=== PATIENT | female | born 1950 | race Caucasian/White ===

== ENCOUNTER → 2020-01-04 08:24 | Outpatient (BNVA) | payer MEDICARE, SELFPAY | PROVIDERS: Family Provider Nurse Practitioner; PCP Nurse Practitioner; Visit Provider Nurse Practitioner Family | DX: E11.9 Type 2 diabetes mellitus without complications (principal); E78.2 Mixed hyperlipidemia; E55.9 Vitamin D deficiency, unspecified; R01.1 Cardiac murmur, unspecified; I10 Essential (primary) hypertension; Z79.4 Long term (current) use of insulin; R04.0 Epistaxis | CPT/HCPCS: 36415; 80053; 80061; 81001; 83036; 84443; 85025 ==

== ENCOUNTER → 2020-02-01 16:34 | Outpatient (BNVA) | payer MEDICARE, SELFPAY | PROVIDERS: Family Provider Nurse Practitioner; PCP Nurse Practitioner; Visit Provider Nurse Practitioner Family | DX: S59.911A Unspecified injury of right forearm, initial encounter (principal); W19.XXXA Unspecified fall, initial encounter; Y92.009 Unspecified place in unspecified non-institutional (private) residence as the place of occurrence of the external cause | CPT/HCPCS: 71046; 73090 ==

== ENCOUNTER 2020-02-23 09:55 | Outpatient (CLI) | payer MEDICARE, SELFPAY ==
--- NOTE | 2020-02-23 10:15 | USCV_ITS ---
Cherelle Donna Age: 69 Gender: F : 1950 Exam Date: 02/23/2020 10:24 Ordering Phys: Lori Moss MD ([email or web address]) Technologist: Freida Edgar Exam Location: [facility] [place] Indication: BP: / HR: 72 Rhythm: Sinus Technical Quality: Adequate MEASUREMENTS (Male / Female) Normal Values 2D ECHO LV Diastolic Diameter PLAX 3.2 cm 4.2 - 5.9 / 3.9 - 5.3 cm LV Systolic Diameter PLAX 1.8 cm LV Chamber Size 3.4 cm IVS Diastolic Thickness 1.0 cm 0.6 - 1.0 / 0.6 - 0.9 cm IVS Systolic Thickness 1.4 cm LVPW Diastolic Thickness 1.3 cm 0.6 - 1.0 / 0.6 - 0.9 cm LVPW Systolic Thickness 1.5 cm RV Chamber Size 2.5 cm LVOT Diameter 2.0 cm LV Ejection Fraction 2D Teich 76.4 % LV Ejection Fraction MOD 2C 27.3 % LV Ejection Fraction 2C AL 29.4 % LA Diameter 3.7 cm LA Width 3.6 cm LA Height 3.8 cm RA Width 3.2 cm RA Height 4.1 cm Aorta at Sinotubular Diameter 2.7 cm M-MODE LV Diastolic Diameter MM 4.2 cm 4.2 - 5.9 / 3.9 - 5.3 cm LV Systolic Diameter MM 2.5 cm LV Ejection Fraction MM Teich 71.9 % IVS Diastolic Thickness MM 1.2 cm 0.6 - 1.0 / 0.6 - 0.9 cm IVS Systolic Thickness MM 1.4 cm LVPW Diastolic Thickness MM 1.1 cm 0.6 - 1.0 / 0.6 - 0.9 cm LVPW Systolic Thickness MM 1.8 cm RV Diastolic Diameter MM 1.0 cm Aortic Annulus Diameter 3.0 cm LA Ao Ratio MM 1.3 MV E Point Septal Separation 0.3 cm DOPPLER AV Peak Velocity 480.0 cm/s LVOT Peak Velocity 114.0 cm/s AV Area Cont Eq vti 0.7 cm squared AV Area Cont Eq pk 0.8 cm squared MV Area PHT 2.1 cm squared Mitral E to A Ratio 1.2 MV E' Velocity 7.0 cm/s Mitral E to MV E' Ratio 20.1 Mitral E to LV E' Lateral Ratio 23.0 Mitral E to LV E' Septal Ratio 17.8 TR Peak Velocity 289.9 cm/s TR Peak Gradient 33.6 mmHg TR Mean Velocity 224.4 cm/s TR Mean Gradient 22.3 mmHg TR Velocity Time Integral 83.2 cm TV Peak E Velocity 58.0 cm/s Right Atrial Pressure 3.0 mmHg Pulmonary Artery Systolic Pressu 36.6 mmHg PV Peak Velocity 55.0 cm/s RV Acceleration Time 0.2 s RV Ejection Time 0.4 s RV AcT/ET 0.5 FINDINGS Left Ventricle Normal left ventricular cavity size. Moderate concentric left ventricular hypertrophy. Normal left ventricular systolic function. Left ventricular ejection fraction is estimated at 60- 65 %. Grade II diastolic dysfunction, moderately elevated filling pressures. Right Ventricle Normal right ventricular size and systolic function. Right ventricular systolic pressure 36.6 mmHg. Right Atrium Normal right atrial size. Right atrial pressure estimated at 3 mmHg. Left Atrium Moderately increased left atrial size. Mitral Valve Severe mitral annular calcification. No mitral valve stenosis. Mild mitral valve regurgitation. Aortic Valve Markedly thickened and calcified aortic valve. Severe aortic valve stenosis, peak velocity 4.5 m/s, peak gradient 79 mmHg, mean gradient 46 mmHg, SHERYL 0.8 cm squared (LVOT=20mm). Moderate aortic valve regurgitation. Tricuspid Valve Structurally normal tricuspid valve. No tricuspid valve stenosis. Mild tricuspid valve regurgitation. Pulmonic Valve Pulmonic valve not well visualized. No pulmonary valve stenosis. Trace pulmonary valve regurgitation. Pericardium No pericardial effusion. Aorta Normal-sized aortic root. CONCLUSIONS 1. Normal left ventricular cavity size. Moderate concentric left ventricular hypertrophy. Normal left ventricular systolic function. Left ventricular ejection fraction is estimated at 60- 65 %. Grade II diastolic dysfunction, moderately elevated filling pressures. 2. Moderately increased left atrial size. 3. Severe aortic valve stenosis, peak velocity 4.5 m/s, peak gradient 79 mmHg, mean gradient 46 mmHg, SHERYL 0.8 cm squared (LVOT= 20mm). Moderate aortic valve regurgitation. 4. Mild pulmonary hypertension with pulmonary artery pressure 37 mmHg. 5. No prior similar studies to compare. Lori Moss MD (Electronically Signed) Final Date: 28 February 2020 10:03 S
== END 2020-02-23 09:56 | disposition home or self-care (01) ==
LOC: RAD 09:59
PROVIDERS: PCP Nurse Practitioner Family; Visit Provider Internal Medicine Cardiovascular Disease
DX: I35.0 Nonrheumatic aortic (valve) stenosis (principal); I27.20 Pulmonary hypertension, unspecified
CPT/HCPCS: 93306

== ENCOUNTER → 2020-06-19 11:16 | Outpatient (BNVA) | payer MEDICARE, SELFPAY | PROVIDERS: PCP Nurse Practitioner Family; Visit Provider Nurse Practitioner Family | DX: E11.9 Type 2 diabetes mellitus without complications (principal); Z79.4 Long term (current) use of insulin; M17.12 Unilateral primary osteoarthritis, left knee | CPT/HCPCS: 36415; 73562; 80053; 83036; 85025 ==

== ENCOUNTER 2020-08-21 09:28 | Outpatient (CLI) | payer MEDICARE, SELFPAY ==
--- NOTE | 2020-08-21 10:15 | USCV_ITS ---
Elliottlily Donna Age: 70 Gender: F : 1950 Exam Date: 08/21/2020 10:12 Ordering Phys: Lori Moss MD ([email or web address]) Technologist: Umer Briseno Exam Location: [facility] – [place] Indication: as BP: 109 / 64 HR: 73 Rhythm: Sinus Technical Quality: Good MEASUREMENTS (Male / Female) Normal Values 2D ECHO LV Diastolic Diameter PLAX 2.9 cm 4.2 - 5.9 / 3.9 - 5.3 cm LV Systolic Diameter PLAX 2.6 cm IVS Diastolic Thickness 1.7 cm 0.6 - 1.0 / 0.6 - 0.9 cm IVS Systolic Thickness 1.6 cm LVPW Diastolic Thickness 1.6 cm 0.6 - 1.0 / 0.6 - 0.9 cm LVPW Systolic Thickness 1.8 cm LVOT Diameter 2.0 cm LV Ejection Fraction 2D Teich 12.4 % LV Ejection Fraction MOD 2C 54.5 % LV Ejection Fraction 2C AL 54.5 % LA Diameter 3.6 cm LA Width 4.5 cm LA Height 4.4 cm RA Width 3.3 cm RA Height 4.0 cm Aorta at Sinotubular Diameter 3.9 cm M-MODE LV Diastolic Diameter MM 4.4 cm 4.2 - 5.9 / 3.9 - 5.3 cm LV Systolic Diameter MM 2.5 cm LV Ejection Fraction MM Teich 73.5 % IVS Diastolic Thickness MM 1.6 cm 0.6 - 1.0 / 0.6 - 0.9 cm IVS Systolic Thickness MM 1.8 cm LVPW Diastolic Thickness MM 1.7 cm 0.6 - 1.0 / 0.6 - 0.9 cm LVPW Systolic Thickness MM 2.1 cm RV Diastolic Diameter MM 1.5 cm Aortic Annulus Diameter 2.5 cm LA Ao Ratio MM 1.5 MV E Point Septal Separation 0.5 cm DOPPLER AV Peak Velocity 532.7 cm/s LVOT Peak Velocity 116.0 cm/s AV Area Cont Eq vti 0.8 cm squared AV Area Cont Eq pk 0.7 cm squared MV Area PHT 5.0 cm squared Mitral E to A Ratio 1.2 MV E' Velocity 84.5 cm/s Mitral E to MV E' Ratio 24.0 Mitral E to LV E' Lateral Ratio 26.3 Mitral E to LV E' Septal Ratio 22.4 TR Peak Velocity 425.7 cm/s TR Peak Gradient 72.5 mmHg TV Peak E Velocity 89.0 cm/s Right Atrial Pressure 3.0 mmHg Pulmonary Artery Systolic Pressu 75.5 mmHg PV Peak Velocity 91.0 cm/s RV Acceleration Time 0.1 s FINDINGS Left Ventricle Normal left ventricular cavity size. Severe left ventricular hypertrophy. Normal left ventricular systolic function. Left ventricular ejection fraction is estimated at 70%. No regional wall motion abnormalities. Grade II diastolic dysfunction, moderately elevated filling pressures. Right Ventricle Normal right ventricular size and systolic function. Right ventricular systolic pressure 75.5 mmHg. Right Atrium Normal right atrial size. Left Atrium Moderately increased left atrial size. Mitral Valve Severe mitral annular calcification. Severely thickened mitral valve. No mitral valve stenosis. Mild mitral valve regurgitation. Aortic Valve Markedly thickened and calcified aortic valve. Severe aortic valve stenosis, peak velocity 5.3 m/sec, peak gradient 121 mm Hg, mean gradient 56 mmHg, SHERYL 0.8 cm squared. Moderate aortic valve regurgitation. Tricuspid Valve Structurally normal tricuspid valve. Trace to mild tricuspid valve regurgitation. Pulmonic Valve Pulmonic valve not well visualized. Pericardium No pericardial effusion. Aorta Normal aorta size at the level of the sinus of valsalva. CONCLUSIONS 1. Normal left ventricular cavity size and systolic function. . Severe concentric left ventricular hypertrophy. Left ventricular ejection fraction is estimated at 70%. No regional wall motion abnormalities. Grade II diastolic dysfunction, moderately elevated filling pressures. 2. Normal right ventricular size and systolic function. 3. Severe aortic valve stenosis, peak velocity 5.3 m/sec, peak gradient 121 mm Hg, mean gradient 56 mmHg, SHERYL 0.8 cm squared. Moderate aortic valve regurgitation. 4. Severe pulmonary hypertension with pulmonary artery pressure estimated at 76 mm Hg. 5. When compared to previous echocardiogram dated 02/28/2020, aortic valve stenosis seems to have worsened. Lori Moss MD (Electronically Signed) Final Date: 26 August 2020 06:34 Amended: 26 August 2020 07:36 C
== END 2020-08-21 09:29 | disposition home or self-care (01) ==
LOC: US 09:34
PROVIDERS: PCP Nurse Practitioner Family; Visit Provider Internal Medicine Cardiovascular Disease
DX: I35.0 Nonrheumatic aortic (valve) stenosis (principal); I27.20 Pulmonary hypertension, unspecified
CPT/HCPCS: 93306

== ENCOUNTER → 2020-09-04 10:55 | Outpatient (BNVA) | payer MEDICARE, MEDICAID, SELFPAY | PROVIDERS: PCP Nurse Practitioner Family; Visit Provider Nurse Practitioner Family | DX: M17.11 Unilateral primary osteoarthritis, right knee (principal); S83.91XA Sprain of unspecified site of right knee, initial encounter; I35.0 Nonrheumatic aortic (valve) stenosis; E11.8 Type 2 diabetes mellitus with unspecified complications | CPT/HCPCS: 73562 ==

== ENCOUNTER → 2020-10-03 08:11 | Outpatient (BNVA) | payer MEDICARE, MEDICAID, SELFPAY | PROVIDERS: PCP Nurse Practitioner Family; Visit Provider Nurse Practitioner Family | DX: E55.9 Vitamin D deficiency, unspecified (principal); I10 Essential (primary) hypertension; E83.42 Hypomagnesemia; E11.9 Type 2 diabetes mellitus without complications; Z79.4 Long term (current) use of insulin; E78.2 Mixed hyperlipidemia | CPT/HCPCS: 80053; 80061; 81003; 82306; 83036; 83735; 84443; 85025 ==

== ENCOUNTER → 2021-01-12 09:25 | Outpatient (BNVA) | payer MEDICARE, MEDICAID, SELFPAY | PROVIDERS: PCP Nurse Practitioner Family; Visit Provider Thoracic Surgery (Cardiothoracic Vascular Surgery) | DX: Z01.812 Encounter for preprocedural laboratory examination (principal); Z20.822 Contact with and (suspected) exposure to COVID-19 | CPT/HCPCS: 87635 ==

== ENCOUNTER → 2021-02-01 11:58 | Outpatient (BNVA) | payer MEDICARE, MEDICAID, SELFPAY | PROVIDERS: PCP Nurse Practitioner Family; Visit Provider Nurse Practitioner Family | DX: Z09 Encounter for follow-up examination after completed treatment for conditions other than malignant neoplasm (principal); E11.9 Type 2 diabetes mellitus without complications; Z79.4 Long term (current) use of insulin; Z95.1 Presence of aortocoronary bypass graft; Z95.2 Presence of prosthetic heart valve | CPT/HCPCS: 80053; 85025 ==

== ENCOUNTER → 2021-02-13 11:28 | Outpatient (BNVA) | payer MEDICARE, MEDICAID, SELFPAY | PROVIDERS: PCP Nurse Practitioner Family; Visit Provider Nurse Practitioner Family | DX: Z09 Encounter for follow-up examination after completed treatment for conditions other than malignant neoplasm (principal); T81.49XA Infection following a procedure, other surgical site, initial encounter; D64.9 Anemia, unspecified | CPT/HCPCS: 80053; 83540; 85025 ==

== ENCOUNTER → 2021-03-14 11:44 | Outpatient (BNVA) | payer MEDICARE, MEDICAID, SELFPAY | PROVIDERS: PCP Nurse Practitioner Family; Visit Provider Internal Medicine Cardiovascular Disease | DX: I50.9 Heart failure, unspecified (principal); I25.10 Atherosclerotic heart disease of native coronary artery without angina pectoris | CPT/HCPCS: 80048; 83735 ==

== ENCOUNTER → 2021-04-23 09:00 | Outpatient (BNVA) | payer MEDICARE, MEDICAID, SELFPAY | PROVIDERS: PCP Nurse Practitioner Family; Visit Provider Nurse Practitioner Family | DX: E11.9 Type 2 diabetes mellitus without complications (principal); Z79.4 Long term (current) use of insulin; I50.32 Chronic diastolic (congestive) heart failure; E78.2 Mixed hyperlipidemia; E55.9 Vitamin D deficiency, unspecified; I11.0 Hypertensive heart disease with heart failure | CPT/HCPCS: 80053; 80061; 81003; 83036; 84443; 85025 ==

== ENCOUNTER → 2021-05-18 08:32 | Outpatient (BNVA) | payer MEDICARE, MEDICAID, SELFPAY | PROVIDERS: PCP Nurse Practitioner Family; Referring Provider Nurse Practitioner Family; Visit Provider Internal Medicine | DX: E11.649 Type 2 diabetes mellitus with hypoglycemia without coma (principal); I50.32 Chronic diastolic (congestive) heart failure; I25.10 Atherosclerotic heart disease of native coronary artery without angina pectoris; I10 Essential (primary) hypertension; E78.2 Mixed hyperlipidemia; Z79.4 Long term (current) use of insulin | CPT/HCPCS: 99204 ==

== ENCOUNTER → 2021-11-05 13:17 | Outpatient (BNVA) | payer MEDICARE, MEDICAID, SELFPAY | PROVIDERS: PCP Nurse Practitioner Family; Visit Provider Internal Medicine | DX: E11.649 Type 2 diabetes mellitus with hypoglycemia without coma (principal); E78.2 Mixed hyperlipidemia; I50.32 Chronic diastolic (congestive) heart failure; I25.10 Atherosclerotic heart disease of native coronary artery without angina pectoris; Z95.1 Presence of aortocoronary bypass graft; Z79.4 Long term (current) use of insulin; Z79.84 Long term (current) use of oral hypoglycemic drugs | CPT/HCPCS: 80053; 80061; 82607; 83036; 99214 ==

== ENCOUNTER → 2021-12-10 10:48 | Outpatient (BNVA) | payer MEDICARE, MEDICAID, SELFPAY | PROVIDERS: PCP Nurse Practitioner Family; Visit Provider Internal Medicine Cardiovascular Disease | DX: I11.0 Hypertensive heart disease with heart failure (principal); I50.32 Chronic diastolic (congestive) heart failure; I25.10 Atherosclerotic heart disease of native coronary artery without angina pectoris; Z95.3 Presence of xenogenic heart valve; E78.2 Mixed hyperlipidemia; E11.9 Type 2 diabetes mellitus without complications; Z79.4 Long term (current) use of insulin | CPT/HCPCS: 99214 ==

== ENCOUNTER → 2021-12-25 10:14 | Outpatient (BNVA) | payer MEDICARE, MEDICAID, SELFPAY | PROVIDERS: PCP Nurse Practitioner Family; Visit Provider Podiatrist Foot & Ankle Surgery | DX: E11.42 Type 2 diabetes mellitus with diabetic polyneuropathy (principal); L60.3 Nail dystrophy; L84 Corns and callosities | CPT/HCPCS: 11055; 11721 ==

== ENCOUNTER → 2022-02-07 08:00 | Outpatient (BNVA) | payer MEDICARE, MEDICAID, SELFPAY | PROVIDERS: PCP Nurse Practitioner Family; Visit Provider Internal Medicine | DX: E11.649 Type 2 diabetes mellitus with hypoglycemia without coma (principal); E11.59 Type 2 diabetes mellitus with other circulatory complications; E78.2 Mixed hyperlipidemia; I50.32 Chronic diastolic (congestive) heart failure; I25.10 Atherosclerotic heart disease of native coronary artery without angina pectoris; Z87.440 Personal history of urinary (tract) infections; Z79.4 Long term (current) use of insulin; Z79.84 Long term (current) use of oral hypoglycemic drugs | CPT/HCPCS: 99214 ==

== ENCOUNTER → 2022-04-30 09:00 | Outpatient (BNVA) | payer MEDICARE, MEDICAID, SELFPAY | PROVIDERS: PCP Nurse Practitioner Family; Visit Provider Podiatrist Foot & Ankle Surgery | DX: E11.8 Type 2 diabetes mellitus with unspecified complications (principal); E11.42 Type 2 diabetes mellitus with diabetic polyneuropathy; L60.3 Nail dystrophy; L84 Corns and callosities; Z79.4 Long term (current) use of insulin; Z79.84 Long term (current) use of oral hypoglycemic drugs | CPT/HCPCS: 11055; 11721 ==

== ENCOUNTER → 2022-05-10 07:56 | Outpatient (BNVA) | payer MEDICARE, MEDICAID, SELFPAY | PROVIDERS: Visit Provider Internal Medicine | DX: E11.42 Type 2 diabetes mellitus with diabetic polyneuropathy (principal); E11.649 Type 2 diabetes mellitus with hypoglycemia without coma; I50.32 Chronic diastolic (congestive) heart failure; I25.10 Atherosclerotic heart disease of native coronary artery without angina pectoris; E78.2 Mixed hyperlipidemia; Z79.4 Long term (current) use of insulin; E11.59 Type 2 diabetes mellitus with other circulatory complications; E27.8 Other specified disorders of adrenal gland; Z79.84 Long term (current) use of oral hypoglycemic drugs; Z87.440 Personal history of urinary (tract) infections | CPT/HCPCS: 99214 ==

== ENCOUNTER → 2022-07-22 07:58 | Outpatient (BNVA) | payer MEDICARE, MEDICAID, SELFPAY | PROVIDERS: Visit Provider Internal Medicine | DX: E11.649 Type 2 diabetes mellitus with hypoglycemia without coma (principal); E78.2 Mixed hyperlipidemia; I50.32 Chronic diastolic (congestive) heart failure; I25.10 Atherosclerotic heart disease of native coronary artery without angina pectoris; Z79.4 Long term (current) use of insulin; Z79.84 Long term (current) use of oral hypoglycemic drugs; Z87.440 Personal history of urinary (tract) infections | CPT/HCPCS: 99214 ==

== ENCOUNTER → 2022-11-19 10:55 | Outpatient (BNVA) | payer MEDICARE, MEDICAID, SELFPAY | PROVIDERS: PCP Nurse Practitioner; Visit Provider Internal Medicine | DX: E11.649 Type 2 diabetes mellitus with hypoglycemia without coma (principal); E78.2 Mixed hyperlipidemia; I50.32 Chronic diastolic (congestive) heart failure; I25.10 Atherosclerotic heart disease of native coronary artery without angina pectoris; D35.00 Benign neoplasm of unspecified adrenal gland; E11.59 Type 2 diabetes mellitus with other circulatory complications; I50.9 Heart failure, unspecified; Z79.4 Long term (current) use of insulin | CPT/HCPCS: 99214 ==

== ENCOUNTER → 2022-11-27 09:34 | Outpatient (BNVA) | payer MEDICARE, MEDICAID, SELFPAY | PROVIDERS: PCP Nurse Practitioner; Visit Provider Podiatrist Foot & Ankle Surgery | DX: E11.42 Type 2 diabetes mellitus with diabetic polyneuropathy (principal); L60.3 Nail dystrophy; L84 Corns and callosities; M20.41 Other hammer toe(s) (acquired), right foot; M20.42 Other hammer toe(s) (acquired), left foot; M21.41 Flat foot [pes planus] (acquired), right foot; M21.42 Flat foot [pes planus] (acquired), left foot; Z79.4 Long term (current) use of insulin | CPT/HCPCS: 11055; 11721 ==

== ENCOUNTER 2022-12-04 07:30 | Outpatient (CLI) | payer MEDICARE, MEDICAID, SELFPAY ==
[2022-12-04 08:25] LABS: Alanine Aminotransferase 19 U/L (0-33); Albumin Level 4.4 g/dL (3.5-5.2); Alkaline Phosphatase 75 U/L (35-105); Anion Gap 15.2 (5-19); Aspartate Amino Transferase 23 U/L (0-32); Blood Urea Nitrogen 7 mg/dL (8-23); Calcium 9.7 mg/dL (8.5-10.5); Carbon Dioxide 25 mmol/L (22-29); Chloride 102 mmol/L (98-107); Chol HDL Ratio 2.21 mg/dL (0.0-4.40); Cholesterol 104 mg/dL (0-200); Globulin 3.1 g/dL (1.3-4.6); Glucose 120 mg/dL (65-115); HDL Cholesterol 47 mg/dL (60-100); LDL Cholesterol Calculated 40 mg/dL (50-129); LDL HDL Ratio 0.85 RATIO (0.00-3.22); Osmolality Calculated 285 mOsm/kg (285-295); Potassium 4.2 mmol/L (3.5-5.1); Sodium 138 mmol/L (136-145); Total Bilirubin 0.4 mg/dL (0.15-1.2); Total Protein 7.5 g/dL (6.6-8.7); Triglycerides 87 mg/dL (0-150)
[2022-12-04 08:49] LABS: Estmated Average Glucose 143; Hemoglobin A1C 6.6 % (4.0-6.0)
--- NOTE | 2022-12-04 09:00 | CT_ITS ---
WS: [id number] CT ABDOMEN WITH AND WITHOUT CONTRAST HISTORY: adrenal adenoma Contiguous triple phase 2 mm axial imaging performed to the abdomen. Adrenal protocol utilized. Oral contrast has not been provided. Coronal and sagittal reformats are submitted. All CT scans at [facility] use at least one of these dose optimization techniques: automated exposure control; mA an d/or kV adjustment per patient size (includes targeted exams where dose is matched to clinical indica tion); or iterative reconstruction. IV CONTRAST: Omnipaque 350; 100 mL IV. Oral contrast: No DLP: 1031.92 mGy.cm COMPARISON: Chest CT 11/03/2009 Lower thorax: Lung bases are clear. Heart is normal size. Small hiatal hernia. Liver/biliary system: Normal size with no intrahepatic dilatation. Gallbladder: Normal. No gallstones or wall thickening. No pericholecystic fluid. Pancreas: Well circumscribed mass with heterogeneity and mild enhancement involving the tail of the p ancreas measures 3.1 x 2.5 cm. This mass was not present on the study of 2009. The remaining pancreas is negative. Spleen: Normal size spleen. No mass or infarct. Adrenal glands: Normal RIGHT adrenal gland. Mild thickening of the LEFT adrenal gland with negative H ounsfield units consistent with an adenoma. Similar to 2010. Right kidney: Normal. Left kidney: Normal size LEFT kidney. There is a cluster of calcifications in the LEFT renal pelvis e xtending towards the UP junction. This cluster measures 1.4 x 1.9 cm. There is very mild dilatation o f the central renal pelvis. No high-grade obstruction. On the delayed images contrast is noted extend ing into the mid ureter. Aorta: Mild atherosclerosis with no aneurysm. Lymphadenopathy: None. Free fluid: None. GI tract: As visualized in the abdomen negative. Abdominal wall: Unremarkable abdominal wall. No hernia. Visualized osseous structures: Unremarkable. CT/CT abdomen wo/w con [id number] IMPRESSION: 1. Solid heterogeneous enhancing mass involving the tail of the pancreas. Mass measures 3.1 x 2.5 cm and highly suspicious for pancreatic neoplasm. Recommend evaluation by oncology and surgery. PET/CT imaging may be of benefit. 2. Mild thickening of the LEFT adrenal gland. Hounsfield units on the noncontr ast exam are low consistent with an adenoma. 3. No metastatic lesions in the liver. 4. Large cluster of calcifications in the LEFT renal pelvis extending into the UP junction. Calcification cluster measures 1.4 x 1.9 cm. Causing very mild di latation of the LEFT renal pelvis. Notified Naina Mina MD at 12/05/2022 9:58AM.
[2022-12-04] MEDS: iohexol 350 mg/mL 500 mL Btl (per mL) IV (09:08)
[2022-12-04 09:31] LABS: Creatinine Urine, Random 24 mg/dL (28-217); Microalbumin Random Urine 2 ug/dL (0-20)
[2022-12-04 09:32] LABS: Microalbum Creatinine Ratio Ur 83 mg/dL (0-20)
== END 2022-12-04 07:31 | disposition home or self-care (01) ==
LOC: RAD 07:32
PROVIDERS: PCP Nurse Practitioner; Visit Provider Internal Medicine
DX: D35.00 Benign neoplasm of unspecified adrenal gland (principal); E11.9 Type 2 diabetes mellitus without complications; Z79.4 Long term (current) use of insulin
CPT/HCPCS: 74170; 80053; 80061; 82044; 83036; Q9967

== ENCOUNTER → 2022-12-05 14:45 | Outpatient (BNVA) | payer MEDICARE, MEDICAID, SELFPAY | PROVIDERS: PCP Nurse Practitioner; Visit Provider Internal Medicine | DX: E11.59 Type 2 diabetes mellitus with other circulatory complications (principal); E11.649 Type 2 diabetes mellitus with hypoglycemia without coma; E78.2 Mixed hyperlipidemia; I50.32 Chronic diastolic (congestive) heart failure; I25.10 Atherosclerotic heart disease of native coronary artery without angina pectoris; D35.00 Benign neoplasm of unspecified adrenal gland; Z79.4 Long term (current) use of insulin; K86.89 Other specified diseases of pancreas | CPT/HCPCS: 99214 ==

== ENCOUNTER → 2022-12-13 08:38 | Outpatient (BNVA) | payer MEDICARE, MEDICAID, SELFPAY | PROVIDERS: PCP Nurse Practitioner; Visit Provider Internal Medicine Cardiovascular Disease | DX: I25.10 Atherosclerotic heart disease of native coronary artery without angina pectoris (principal); Z79.4 Long term (current) use of insulin; K86.89 Other specified diseases of pancreas; D35.00 Benign neoplasm of unspecified adrenal gland; E11.649 Type 2 diabetes mellitus with hypoglycemia without coma; I11.0 Hypertensive heart disease with heart failure; I50.32 Chronic diastolic (congestive) heart failure; Z95.3 Presence of xenogenic heart valve | CPT/HCPCS: 99213 ==

== ENCOUNTER 2022-12-25 19:13 | Emergency (ER) | payer MEDICARE, MEDICAID, SELFPAY ==
[2022-12-25 19:43] VITALS: BP 158/77; PULSE 67; RESP 17; TEMP 37; O2SAT 99
--- NOTE | 2022-12-25 19:53 | XRR_ITS ---
PROCEDURE INFORMATION: Exam: XR Right Ankle Exam date and time: 12/25/2022 8:02 PM Age: 72 years old Clinical indication: Pain; Ankle; Right; Prior surgery; Surgery date: 6+ months; Surgery type: Orif; Additional info: Fall TECHNIQUE: Imaging protocol: Radiologic exam of the right ankle. Views: 3 or more views. COMPARISON: No relevant prior studies available. FINDINGS: Bones/joints: The patient is status post ORIF of the distal fibula and medial malleolus. No acute fracture or dislocation identified. Degenerative changes of the tibiotalar joint and small degenerative osteophytes along the dorsum of the foot seen. Incidental note is made of small plantar and dorsal calcaneal enthesophytes. Soft tissues: Normal. XR/XR ankle RT min 3V* [id number] IMPRESSION: No acute injury.
--- NOTE | 2022-12-25 19:53 | XRR_ITS ---
PROCEDURE INFORMATION: Exam: XR Right Foot Exam date and time: 12/25/2022 8:02 PM Age: 72 years old Clinical indication: Pain; Foot; Right; Additional info: Fall TECHNIQUE: Imaging protocol: Radiologic exam of the right foot. Views: 3 or more views. COMPARISON: No relevant prior studies available. FINDINGS: Bones/joints: ORIF of the distal fibula and medial malleolus seen. No evidence of hardware related complication. No acute fracture or dislocation. Degenerative changes of the tibiotalar joint and small degenerative osteophytes along the dorsum of the foot seen. Incidental note is made of small plantar and dorsal calcaneal enthesophytes. Soft tissues: Mild swelling of the foot soft tissues seen. XR/XR foot RT min 3V* [id number] IMPRESSION: No acute injury.
--- NOTE | 2022-12-25 21:25 | W.ED.FALL ---
HPI - Fall General: Chief Complaint: Fall Stated Complaint: Fall Rt Leg and Foot Time Seen by Provider: 12/25/22 21:23 PFSH ED PFSH: Medical History Adrenal nodule Anemia Aortic stenosis Bacterial UTI CAD (coronary artery disease) Diabetes Forearm fracture History of nonmelanoma skin cancer Hypertension Hypomagnesemia Injury of right forearm Mixed hyperlipidemia Otitis media Postoperative follow-up Skin inflammation Skin lesion of hand Vitamin D deficiency Surgical History (Updated 12/13/22 @ 11:56 by Landry Gannon MD) History of ankle surgery 1999 fell and broke right ankle Plate and screws at [place] S/P CABG x 1 S/P shoulder surgery 1999 shoulder joint repair right Surgery done at [place] Family History Father Emphysema of lung Mother Cancer Social History Smoking and tobacco status: never smoked Second hand smoke exposure: Yes Smoking risk assessment/counseling performed?: Yes Alcohol intake: never Desire information about alcohol rehabilitation?: No Counseling given: No Substance/Drug Use: never Desire information about substance/drug rehabilitation?: No Counseling given: No Caregiver/support person: Yes Lives independently: Yes Household members: spouse Housing: Manufactured/Mobile home Marital status: Number of children: 2 Highest education level completed: 6th Grade service: No Current occupational status: retired Current occupation: Retired Course Vital Signs: Vital signs: Vital Signs Temperature 98.6 F 12/25/22 19:43 Pulse Rate 67 12/25/22 19:43 Respiratory Rate 17 12/25/22 19:43 Blood Pressure 158/77 12/25/22 19:43 Pulse Oximetry 99 12/25/22 19:43 Oxygen Delivery Me thod Room Air 12/25/22 19:43 MDM - Fall Lab Data Radiology Impressions Ankle X-Ray 12/25/22 19:53 IMPRESSION: No acute injury. Foot X-Ray 12/25/22 19:53 IMPRESSION: No acute injury. Discharge Plan Discharge Condition: Stable Prescriptions: No Action acetaminophen [Tylenol Arthritis Pain] 650 mg tablet extended release 1,300 mg PO Q12H multivitamin Tablet 1 tab PO DAILY aspirin [Adult Low Dose Aspirin] 81 mg tablet,delayed release (DR/EC) 81 mg PO DAILY ascorbate calcium (vitamin C) 500 mg tablet 500 mg PO DAILY (DME) Diabetic Shoes See Rx Instructions .Route .MEDSUPPLY Qty: 1 0RF Rx Instructions: As directed, with 3 pairs of inserts made by [employer] betamethasone acet,sod phos [Celestone Soluspan] 6 mg/mL suspension 6 mg intra-articular ONCE Qty: 1 0RF bupivacaine (PF) 0.5 % (5 mg/mL) solution 10 mg intra-articular ONCE Qty: 2 0RF lidocaine (PF) 10 mg/mL (1 %) solution 20 mg intra-articular ONCE Qty: 2 0RF cholecalciferol (vitamin D3) 25 mcg (1,000 unit) capsule 5,000 unit PO DAILY omega-3 acid ethyl esters 1 gram capsule 1 cap PO DAILY (DME) Diabetic Shoes with 3 Pairs of Inserts See Rx Instructions .Route .MEDSUPPLY Qty: 1 0RF Rx Instructions: As directed by HOME metoprolol succinate 25 mg tablet extended release 24 hr 25 mg PO DAILY Qty: 30 2RF Tresiba FlexTouch U-100 100 unit/mL (3 mL) insulin pen 18 unit SUBCUT DAILY (DME) lancets [Accu-Chek Softclix Lancets] Misc See Rx Instructions .ROUTE .MEDSUPPLY Qty: 100 0RF Rx Instructions: As directed four times per day ([facility] [place]) FreeStyle Myke 2 [place] Misc See Rx Instructions .Route Qty: 1 3RF Rx Instructions: Check blood sugar 4 times a day. ([facility] [place]) FreeStyle Myke 2 Sensor Kit See Rx Instructions .Route Qty: 1 3RF Rx Instructions: As directed ([facility] [place]) pen needle, diabetic [BD Ultra-Fine Kelly Pen Needle] 32 gauge x 5/32 needle See Rx Instructions .ROUTE .MEDSUPPLY Qty: 100 5RF Rx Instructions: As directed daily magnesium oxide 400 mg (241.3 mg magnesium) tablet See Rx Instructions .ROUTE .COMPLEX Qty: 90 1RF Dose Instruction: Take 1 tablet by mouth once daily Rx Instructions: Take 1 tablet by mouth once daily (DME) OneTouch Verio test strips Strip See Rx Instructions .ROUTE .COMPLEX Qty: 100 2RF Dose Instruction: USE ONE STRIP TO TEST BLOOD SUGAR 3-4 TIMES DAILY Rx Instructions: USE ONE STRIP TO TEST BLOOD SUGAR 3-4 TIMES DAILY atorvastatin 80 mg tablet 80 mg PO DAILY Qty: 90 3RF amlodipine 10 mg tablet 10 mg PO DAILY Qty: 90 3RF ferrous gluconate [Ferate] 240 mg (27 mg iron) tablet 240 mg PO DAILY Qty: 30 2RF Referrals: Talisha Saini FNP [Primary Care Provider] - Coding Level of Care Code ED 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
--- NOTE | 2022-12-25 22:39 | W.ED.FALL ---
HPI - Fall General: Chief Complaint: Fall Stated Complaint: Fall Rt Leg and Foot Time Seen by Provider: 12/25/22 21:23 History of Present Illness: 72-year-old female comes in today with complaints of injury to the right foot. Patient has a contusion to the dorsal right foot around digits 3 and 4. No obvious deformity is noted. Patient has had a ORIF of the right ankle. Patient states that she was walking into her kitchen earlier this afternoon when she struck her foot against the table. Patient has been weightbearing but has had some pain to her posterior thigh also. Associated symptoms-after fall: Denies chest pain Review of Systems Const: Denies: fever(s) Card: Denies: chest pain Resp: Denies: dyspnea GI: Denies: nausea or vomiting : Denies: flank pain Musc: Reports: extremity pain PFS ED PFSH: Medical History (Updated 12/25/22 @ 22:44 by SARAH Escobar) Adrenal nodule Anemia Aortic stenosis Bacterial UTI CAD (coronary artery disease) Diabetes Forearm fracture History of nonmelanoma skin cancer Hypertension Hypomagnesemia Injury of right forearm Mixed hyperlipidemia Otitis media Postoperative follow-up Skin inflammation Skin lesion of hand Vitamin D deficiency Surgical History (Updated 12/13/22 @ 11:56 by Landry Gannon MD) History of ankle surgery 1999 fell and broke right ankle Plate and screws at [place] S/P CABG x 1 S/P shoulder surgery 1999 shoulder joint repair right Surgery done at [place] Family History Father Emphysema of lung Mother Cancer Social History Smoking and tobacco status: never smoked Second hand smoke exposure: Yes Smoking risk assessment/counseling performed?: Yes Alcohol intake: never Desire information about alcohol rehabilitation?: No Counseling given: No Substance/Drug Use: never Desire information about substance/drug rehabilitation?: No Counseling given: No Caregiver/support person: Yes Lives independently: Yes Household members: spouse Housing: Manufactured/Mobile home Marital status: Number of children: 2 Highest education level completed: 6th Grade service: No Current occupational status: retired Current occupation: Retired Physical Exam Const: COMMON NORMALS: alert HENMT: COMMON NORMALS: normocephalic HEAD & SCALP: normocephalic Neck/C-Spine: COMMON NORMALS: full ROM Resp: COMMON NORMALS: normal respiratory effort Cardio: COMMON NORMALS: regular rate RATE: regular rate Back/Pelvis: COMMON NORMALS: thoracic and lumbar spine normal to inspection Extremity: COMMON NORMALS: full ROM RIGHT LOWER EXTREMITY: Yes foot & digits (Bruising and swelling to the dorsal right foot at the base of the third and) Right foot and digits: Yes inspection, Yes palpation, Yes ROM and Yes neurovascular exam Neuro: SENSORIUM/ORIENTATION: Yes alert Psych: COMMON NORMALS: cooperative Skin: COMMON NORMALS: turgor normal GENERAL SKIN EXAM: turgor normal Course Vital Signs: Vital signs: Vital Signs Temperature 98.6 F 12/25/22 19:43 Pulse Rate 67 12/25/22 19:43 Respiratory Rate 17 12/25/22 19:43 Blood Pressure 158/77 12/25/22 19:43 Pulse Oximetry 99 12/25/22 19:43 Oxygen Delivery Me thod Room Air 12/25/22 19:43 MDM - Fall Medical Decision Making 72-year-old female comes in today with injury to the right foot. On exam patient has some swelling and bruising to the dorsal right foot. Distal cap refill is intact. Dorsal pedis pulses are normal. No obvious deformity is noted. Differential diagnosis includes dislocation, fracture, contusion, sprain. X-ray noted no fractures of the ankle or foot. Believe patient probably has a contusion from the below injury. Recommend follow-up as needed return to the ED for new concerns. Patient reported understanding. Lab Data Radiology Impressions Ankle X-Ray 12/25/22 19:53 IMPRESSION: No acute injury. Foot X-Ray 12/25/22 19:53 IMPRESSION: No acute injury. Discharge Plan Discharge Patient Disposition: Home Clinical Impression: Contusion of foot including toes Qualifiers: Encounter type: initial encounter Laterality: right Qualified Code(s): S90.31XA - Contusion of right foot, initial encounter Condition: Stable Prescriptions: No Action acetaminophen [Tylenol Arthritis Pain] 650 mg tablet extended release 1,300 mg PO Q12H multivitamin Tablet 1 tab PO DAILY aspirin [Adult Low Dose Aspirin] 81 mg tablet,delayed release (DR/EC) 81 mg PO DAILY ascorbate calcium (vitamin C) 500 mg tablet 500 mg PO DAILY (DME) Diabetic Shoes See Rx Instructions .Route .MEDSUPPLY Qty: 1 0RF Rx Instructions: As directed, with 3 pairs of inserts made by [employer] betamethasone acet,sod phos [Celestone Soluspan] 6 mg/mL suspension 6 mg intra-articular ONCE Qty: 1 0RF bupivacaine (PF) 0.5 % (5 mg/mL) solution 10 mg intra-articular ONCE Qty: 2 0RF lidocaine (PF) 10 mg/mL (1 %) solution 20 mg intra-articular ONCE Qty: 2 0RF cholecalciferol (vitamin D3) 25 mcg (1,000 unit) capsule 5,000 unit PO DAILY omega-3 acid ethyl esters 1 gram capsule 1 cap PO DAILY (DME) Diabetic Shoes with 3 Pairs of Inserts See Rx Instructions .Route .MEDSUPPLY Qty: 1 0RF Rx Instructions: As directed by HOME metoprolol succinate 25 mg tablet extended release 24 hr 25 mg PO DAILY Qty: 30 2RF Tresiba FlexTouch U-100 100 unit/mL (3 mL) insulin pen 18 unit SUBCUT DAILY (DME) lancets [Accu-Chek Softclix Lancets] Misc See Rx Instructions .ROUTE .MEDSUPPLY Qty: 100 0RF Rx Instructions: As directed four times per day (DME) FreeStyle Myke 2 [place] Misc See Rx Instructions .Route Qty: 1 3RF Rx Instructions: Check blood sugar 4 times a day. (DME) FreeStyle Myke 2 Sensor Kit See Rx Instructions .Route Qty: 1 3RF Rx Instructions: As directed ([facility] [place]) pen needle, diabetic [BD Ultra-Fine Kelly Pen Needle] 32 gauge x 5/32 needle See Rx Instructions .ROUTE .MEDSUPPLY Qty: 100 5RF Rx Instructions: As directed daily magnesium oxide 400 mg (241.3 mg magnesium) tablet See Rx Instructions .ROUTE .COMPLEX Qty: 90 1RF Dose Instruction: Take 1 tablet by mouth once daily Rx Instructions: Take 1 tablet by mouth once daily (DME) OneTouch Verio test strips Strip See Rx Instructions .ROUTE .COMPLEX Qty: 100 2RF Dose Instruction: USE ONE STRIP TO TEST BLOOD SUGAR 3-4 TIMES DAILY Rx Instructions: USE ONE STRIP TO TEST BLOOD SUGAR 3-4 TIMES DAILY atorvastatin 80 mg tablet 80 mg PO DAILY Qty: 90 3RF amlodipine 10 mg tablet 10 mg PO DAILY Qty: 90 3RF ferrous gluconate [Ferate] 240 mg (27 mg iron) tablet 240 mg PO DAILY Qty: 30 2RF Discharge Orders: Discharge ED (Routine); Ordered 12/25/22 Ordered By: Samson Rodas Referrals: Talisha Saini FNP [Primary Care Provider] - Discharge Diet: Usual diet Discharge Activity: Increase activity as tolerated Patient Instructions: Foot Contusion (ED) Activity Restrictions/Additional Instructions: Wear elastic wrap or compression stocking to help with bruising and swelling. Increase activity as tolerated. Use a walker or cane to assist with movement. Follow-up with primary care for further instruction. Return to ED for new concerns. 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
== END 2022-12-25 23:03 | disposition home or self-care (01) ==
PROVIDERS: Emergency Provider Nurse Practitioner Family; PCP Nurse Practitioner
DX: S90.31XA Contusion of right foot, initial encounter (principal); S90.121A Contusion of right lesser toe(s) without damage to nail, initial encounter; W22.03XA Walked into furniture, initial encounter; Y93.01 Activity, walking, marching and hiking; Y92.000 Kitchen of unspecified non-institutional (private) residence as the place of occurrence of the external cause
CPT/HCPCS: 73610; 73630; 99284

== ENCOUNTER → 2023-02-26 08:39 | Outpatient (BNVA) | payer MEDICARE, MEDICAID, SELFPAY | PROVIDERS: PCP Nurse Practitioner; Visit Provider Podiatrist Foot & Ankle Surgery | DX: E11.42 Type 2 diabetes mellitus with diabetic polyneuropathy (principal); L60.3 Nail dystrophy; L84 Corns and callosities; M20.41 Other hammer toe(s) (acquired), right foot; M20.42 Other hammer toe(s) (acquired), left foot; M21.41 Flat foot [pes planus] (acquired), right foot; M21.42 Flat foot [pes planus] (acquired), left foot; Z79.4 Long term (current) use of insulin | CPT/HCPCS: 11056; 11721 ==

== ENCOUNTER 2023-04-07 09:15 | Oncology outpatient (recurring) (ONCR) | payer MEDICARE, MEDICAID, SELFPAY ==
[2023-04-07 08:59] VITALS: BMI 32.2
[2023-04-07 09:00] VITALS: BP 145/84; PULSE 77; RESP 18; TEMP 36.7; O2SAT 99
[2023-04-07 09:24] LABS: Basophils # 0.1 10^3/uL (0.0-0.1); Basophils % 0.7 %; Eosinophils # 0.2 10^3/uL (0.0-0.8); Eosinophils % 2.7 %; Hematocrit 37.2 % (36-47); Lymphocytes # 2.7 10^3/uL (0.8-4.8); Lymphocytes % 30.2 %; Mean Corpuscular HGB Conc 33.9 g/dL (30-55); Mean Corpuscular Volume 91.4 fl (85-98); Mean Platelet Volume 9.4 fL (7.4-10.4); Monocytes # 0.6 10^3/uL (0.2-0.9); Monocytes % 6.4 %; Neutrophils # 5.32 10^3/uL (1.8-7.7); Neutrophils % 59.7 %; Nucleated Red Blood Cells % 0 %; Platelet Count 256 10^3/cmm (157-399); Red Blood Count 4.07 10^6/uL (3.85-5.65); Red Cell Distribution Width 11.9 % (12.1-15.1); White Blood Count 8.91 10^3/uL (3.29-11.43)
[2023-04-07 09:52] LABS: Alanine Aminotransferase 17 U/L (0-33); Albumin Level 4.2 g/dL (3.5-5.2); Alkaline Phosphatase 78 U/L (35-105); Anion Gap 14.3 (5-19); Aspartate Amino Transferase 22 U/L (0-32); Blood Urea Nitrogen 7 mg/dL (8-23); CA 125 12.1 U/mL (0-35); Calcium 9.6 mg/dL (8.5-10.5); Carbon Dioxide 25 mmol/L (22-29); Chloride 102 mmol/L (98-107); Glucose 119 mg/dL (65-115); Osmolality Calculated 283 mOsm/kg (285-295); Potassium 4.3 mmol/L (3.5-5.1); Sodium 137 mmol/L (136-145); Total Bilirubin 0.4 mg/dL (0.15-1.2); Total Protein 7.2 g/dL (6.6-8.7)
[2023-04-07] MEDS: famotidine 20 mg/2 mL INJ IVP (12:15)
[2023-04-07] MEDS: palonosetron 0.25 mg/5 mL SDV IVP (12:15)
[2023-04-07] MEDS: gemcitabine 1,700 MG in sodium chloride 0.9% (100 ml) 100 ML 289.42 MG IV (14:06)
[2023-04-07 14:48] VITALS: BP 143/65; PULSE 74; RESP 16; TEMP 36.2; O2SAT 99
== END 2023-04-10 23:59 | disposition home or self-care (01) ==
PROVIDERS: PCP Nurse Practitioner; Visit Provider Internal Medicine Medical Oncology
DX: Z51.11 Encounter for antineoplastic chemotherapy (principal); C25.2 Malignant neoplasm of tail of pancreas
CPT/HCPCS: 80053; 82378; 85025; 86301; 86304; 96368; 96376; 96413; 96417; 99205; 99215; J1100; J1642; J2469; J3490; J9201; J9264

== ENCOUNTER 2023-04-19 05:55 | Emergency (ER) | payer MEDICARE, MEDICAID, SELFPAY ==
[2023-04-19 05:56] VITALS: BP 160/75; PULSE 72; RESP 20; TEMP 36.8; O2SAT 100; BMI 32.2
--- NOTE | 2023-04-19 06:04 | ED_ITS ---
HPI - Abdominal Pain General: Chief Complaint: Abdominal Pain Stated Complaint: ABD PAIN Time Seen by Provider: 04/19/23 05:59 Source: patient Mode of arrival: ambulatory History of Present Illness: 72-year-old female presents to the emergency room with complaint of left-sided abdominal pain. Nurses notes it is listed as right-sided however when I talked with the patient she refers to the left mid abdomen and left lower portion of her abdomen. She was recently diagnosed with a UTI she has been started on biotics. In November of this year she was found to have a pancreatic mass. She underwent endoscopic needle biopsy was found to be pancreatic cancer and she just recently started her treatments. She has had 1 treatment. She has a history of coronary artery disease diabetes mellitus aortic stenosis previously had a TAVR valve replacement. She is insulin-dependent diabetic as well. She denies chest pain no vomiting no diarrhea to the contrary she has been constipated and is started on Dukas [address] Welsh. No hematochezia or melena denies fever sweats or chills at home. MD elicited complaint: abdominal pain Pertinent past history: other (Pancreatic cancer, recent UTI) Onset (ago): hour(s) Pain Consistency: constant Location: LLQ (Left mid abdomen) Severity: moderate Quality: cramping Exacerbating factors: nothing Relieving factors: nothing Associated Symptoms: Reports dysuria; Denies anorexia, belching, bloating, change in bowel habits, change in stool character, chills, coffee ground emesis, constipation, GI cramping, diarrhea, dyspepsia, excessive flatus, fever(s), heartburn, hematochezia, hematuria, hematemesis, fecal incontinence, loose stools, melena, nausea, poor appetite, syncope and vomiting Review of Systems Const: Denies: fever(s) or chills Card: Denies: chest pain, palpitations or syncope GI: Reports: abdominal pain; Denies: nausea, vomiting, hematemesis, coffee ground emesis, heartburn, diarrhea, constipation, bloating, GI cramping, belching, excessive flatus, fecal incontinence, change in bowel habits, change in stool character, hematochezia or melena : Reports: dysuria and urinary frequency; Denies: hematuria PFSH ED PFSH: Medical History Adrenal nodule Anemia Aortic stenosis Bacterial UTI CAD (coronary artery disease) Diabetes Forearm fracture History of nonmelanoma skin cancer Hypertension Hypomagnesemia Injury of right forearm Mixed hyperlipidemia Otitis media Postoperative follow-up Skin inflammation Skin lesion of hand Vitamin D deficiency Surgical History History of ankle surgery 1999 fell and broke right ankle Plate and screws at [place] History of aortic valve replacement (01/16/21) Bioprosthetic aortic valve replacement and single-vessel coronary artery bypass S/P shoulder surgery 1999 shoulder joint repair right Surgery done at [place] Family History Father Emphysema of lung Mother Pancreatic cancer Social History Smoking and tobacco status: never smoked Second hand smoke exposure: Yes Smoking risk assessment/counseling performed?: Yes Alcohol intake: never Desire information about alcohol rehabilitation?: No Counseling given: No Substance/Drug Use: never Desire information about substance/drug rehabilitation?: No Counseling given: No Caregiver/support person: Yes Lives independently: Yes Household members: spouse Housing: Manufactured/Mobile home Marital status: Number of children: 2 Highest education level completed: 6th Grade service: No Current occupational status: retired Current occupation: Retired Physical Exam Const: GENERAL APPEARANCE: cooperative and comfortable ORIENTATION/CONSCIOUSNESS: Yes awake, Yes oriented to person, Yes oriented to place and Yes oriented to time HENMT: COMMON NORMALS: normocephalic, atraumatic and hearing grossly normal bilaterally HEAD & SCALP: normocephalic and atraumatic Resp: COMMON NORMALS: normal respiratory effort, No retractions, No use of accessory muscles and clear to auscultation bilaterally AUSCULTATION: clear to auscultation bilaterally Cardio: COMMON NORMALS: regular rate, regular rhythm and No murmurs present (Cardio) RATE: regular rate RHYTHM: regular rhythm GI: COMMON NORMALS: Soft to palpation and No hepatosplenomegaly present AUSCULTATION: Yes normoactive bowel sounds PALPATION: Yes Soft to palpation, No Tenderness to palpation present (GI), No Guarding due to palpation present (GI) and Yes No hepatosplenomegaly present Extremity: COMMON NORMALS: normal to inspection, capillary refill normal, no clubbing, cyanosis or edema, no calf tenderness and no pedal edema Neuro: SENSORIUM/ORIENTATION: Yes oriented to person, Yes oriented to place and Yes oriented to time Skin: COMMON NORMALS: no rashes or lesions noted GENERAL SKIN EXAM: no rashes or lesions noted Course Vital Signs: Vital signs: Vital Signs Temperature 98.2 F 04/19/23 05:56 Pulse Rate 72 04/19/23 05:56 Respiratory Rate 20 H 04/19/23 05:56 Blood Pressure 160/75 04/19/23 05:56 Pulse Oximetry 100 04/19/23 05:56 MDM - Abdominal Pain Medical Decision Making Left obstructing staghorn calculus and renal pelvis. Cultures obtained started ceftriaxone discussed with patient family pain is well controlled at this point making plans for transfer for definitive care. She received her last chemotherapy for pancreatic cancer on 04/15. We do not have urology services available at our facility at this time patient will be transferred to [facility] ER to ER. Her other physicians for cancer work-up were located at [facility] which she wishes to go there since we cannot provide urology here. Medical Records I reviewed the patient's medical records. Lab Data I reviewed the patient's lab results. 04/19/23 06:26 04/19/23 06:26 Labs/Radiology: Radiology Impressions Abdomen/Pelvis CT 04/19/23 07:23 IMPRESSION: Obstructing 15 mm staghorn calculus at the left renal pelvis. Granulomatous disease in the liver and spleen. Laboratory Results WBC 2.93 10^3/uL (3.29-11.43) L 04/19/23 06:26 RBC 3.92 10^6/uL (3.85-5.65) 04/19/23 06:26 Hgb 12.20 g/dL (11.27-16.99) 04/19/23 06:26 Hct 35.8 % (36-47) L 04/19/23 06:26 MCV 91.3 fl (85-98) 04/19/23 06:26 MCH 31.1 pg (27-33) 04/19/23 06:26 MCHC 34.1 g/dL (30-55) 04/19/23 06:26 RDW 11.9 % (12.1-15.1) L 04/19/23 06:26 Plt Count 162 10^3/cmm (157-399) 04/19/23 06:26 MPV 10.3 fL (7.4-10.4) 04/19/23 06:26 Neut % (Auto) 59.2 % 04/19/23 06:26 Lymph % (Auto) 30.7 % 04/19/23 06:26 [place] % (Auto) 1.7 % 04/19/23 06:26 Eos % (Auto) 7.8 % 04/19/23 06:26 Baso % (Auto) 0.3 % 04/19/23 06:26 Neut # (Auto) 1.73 10^3/uL (1.8-7.7) L 04/19/23 06:26 Lymph # (Auto) 0.9 10^3/uL (0.8-4.8) 04/19/23 06:26 [place] # (Auto) 0.1 10^3/uL (0.2-0.9) L 04/19/23 06:26 Eos # (Auto) 0.2 10^3/uL (0.0-0.8) 04/19/23 06:26 Baso # (Auto) 0.0 10^3/uL (0.0-0.1) 04/19/23 06:26 Nucleated RBC % (auto) 0 % 04/19/23 06:26 Nucleated RBCs # 0.0 /100WBC 04/19/23 06:26 Sodium 135 mmol/L (136-145) L 04/19/23 06:26 Potassium 4.4 mmol/L (3.5-5.1) 04/19/23 06:26 Chloride 102 mmol/L (98-107) 04/19/23 06:26 Carbon Dioxide 23 mmol/L (22-29) 04/19/23 06:26 Anion Gap 14.4 (5-19) 04/19/23 06:26 BUN 9 mg/dL (8-23) 04/19/23 06:26 Creatinine 0.6 mg/dL (0.5-0.9) 04/19/23 06:26 GFR Calculation Not Reportable 04/19/23 06:26 Glucose 188 mg/dL (65-115) H 04/19/23 06:26 Calculated Osmolality 284 mOsm/kg (285-295) L 04/19/23 06:26 Calcium 9.1 mg/dL (8.5-10.5) 04/19/23 06:26 Total Bilirubin 0.8 mg/dL (0.15-1.2) 04/19/23 06:26 AST 20 U/L (0-32) 04/19/23 06:26 ALT 27 U/L (0-33) 04/19/23 06:26 Alkaline Phosphatase 68 U/L (35-105) 04/19/23 06:26 Total Protein 6.7 g/dL (6.6-8.7) 04/19/23 06:26 Albumin 4.1 g/dL (3.5-5.2) 04/19/23 06:26 Globulin 2.6 g/dL (1.3-4.6) 04/19/23 06:26 Lipase 43 U/L (13-60) 04/19/23 06:26 Urine Color Straw (Yellow) 04/19/23 06:40 Urine Appearance Clear (CLEAR) 04/19/23 06:40 Urine pH 8 (5-7) H 04/19/23 06:40 Ur Specific [place] 1.005 (1.005-1.030) 04/19/23 06:40 Urine Protein Trace (Negative) 04/19/23 06:40 Urine Glucose (UA) Norm (Normal) 04/19/23 06:40 Urine Ketones 1+ (Negative) H 04/19/23 06:40 Urine Blood 2+ (Negative) H 04/19/23 06:40 Urine Nitrate Negative (Negative) 04/19/23 06:40 Urine Bilirubin Neg (Negative) 04/19/23 06:40 Prot Sulfosalicylic Acd Positive (Negative) 04/19/23 06:40 Urine Urobilinogen Norm mg/dL (Negative) 04/19/23 06:40 Ur Leukocyte Esterase Negative (Negative) 04/19/23 06:40 Urine RBC 5-10 /hpf (0-2) H 04/19/23 06:40 Urine WBC 0-4 /hpf (0-5) H 04/19/23 06:40 Ur Squamous Epith Cells 0-4 /hpf (0-5) H 04/19/23 06:40 Amorphous Sediment Not Reportable 04/19/23 06:40 Urine Bacteria Trace /hpf (NONE) 04/19/23 06:40 Discharge Plan Discharge Patient Disposition: Transfer to ED Clinical Impression: Staghorn renal calculus, Diabetes, CAD (coronary artery disease), History of aortic valve replacement with bioprosthetic valve, Malignant neoplasm of tail of pancreas Condition: Stable Prescriptions: No Action acetaminophen [Tylenol Arthritis Pain] 650 mg tablet extended release 1,300 mg PO Q12H multivitamin Tablet 1 tab PO DAILY aspirin [Adult Low Dose Aspirin] 81 mg tablet,delayed release (DR/EC) 81 mg PO DAILY ascorbate calcium (vitamin C) 500 mg tablet 500 mg PO DAILY (DME) Diabetic Shoes See Rx Instructions .Route .MEDSUPPLY Qty: 1 0RF Rx Instructions: As directed, with 3 pairs of inserts made by [employer] cholecalciferol (vitamin D3) 25 mcg (1,000 unit) capsule 5,000 unit PO DAILY omega-3 acid ethyl esters 1 gram capsule 1 cap PO DAILY (DME) Diabetic Shoes with 3 Pairs of Inserts See Rx Instructions .Route .MEDSUPPLY Qty: 1 0RF Rx Instructions: As directed by HOME lorazepam 1 mg tablet 0.5 - 1 mg PO Q6H PRN (Reason: Severe Nausea) Qty: 30 3RF prochlorperazine maleate [Compazine] 10 mg tablet 10 mg PO Q6H PRN (Reason: Mild Nausea) Qty: 30 3RF senna 8.6 mg capsule 8.6 mg PO BID nystatin 100,000 unit/gram cream 1 applic topical BID Qty: 30 0RF fluconazole [Diflucan] 150 mg tablet 150 mg PO Q3D Qty: 2 0RF Tresiba FlexTouch U-100 100 unit/mL (3 mL) insulin pen 18 unit SUBCUT DAILY (DME) lancets [Accu-Chek Softclix Lancets] Misc See Rx Instructions .ROUTE .MEDSUPPLY Qty: 100 0RF Rx Instructions: As directed four times per day (DME) FreeStyle Myke 2 [place] Misc See Rx Instructions .Route Qty: 1 3RF Rx Instructions: Check blood sugar 4 times a day. (DME) FreeStyle Myke 2 Sensor Kit See Rx Instructions .Route Qty: 1 3RF Rx Instructions: As directed atorvastatin 80 mg tablet 80 mg PO DAILY Qty: 90 3RF amlodipine 10 mg tablet 10 mg PO DAILY Qty: 90 3RF (DME) pen needle, diabetic [BD Kelly 2nd Gen Pen Needle] 32 gauge x 5/32 needle See Rx Instructions .ROUTE .COMPLEX Qty: 100 0RF Dose Instruction: USE DIRECTED DAILY Rx Instructions: USE DIRECTED DAILY (DME) OneTouch Verio test strips Strip See Rx Instructions .ROUTE .COMPLEX Qty: 100 0RF Dose Instruction: USE ONE STRIP TO TEST BLOOD SUGAR 3-4 TIMES DAILY Rx Instructions: USE ONE STRIP TO TEST BLOOD SUGAR 3-4 TIMES DAILY lidocaine-prilocaine 2.5-2.5 % cream 1 applic topical DIRECTED Qty: 30 3RF Rx Instructions: place quarter sized amount 30 min prior to port access, cover with plastic wrap Rybelsus 14 mg tablet 14 mg PO DAILY magnesium oxide 400 mg (241.3 mg magnesium) tablet 400 mg PO DAILY metoprolol succinate 25 mg tablet extended release 24 hr 25 mg PO DAILY Referrals: Talisha Saini, SARAH [Primary Care Provider] - Coding Level of Care Code ED Custodian Manager for Hilary [place]
[2023-04-19 06:32] LABS: Basophils % 0.3 %; Eosinophils # 0.2 10^3/uL (0.0-0.8); Eosinophils % 7.8 %; Hematocrit 35.8 % (36-47); Lymphocytes # 0.9 10^3/uL (0.8-4.8); Lymphocytes % 30.7 %; Mean Corpuscular HGB Conc 34.1 g/dL (30-55); Mean Corpuscular Hemoglobin 31.1 pg (27-33); Mean Corpuscular Volume 91.3 fl (85-98); Mean Platelet Volume 10.3 fL (7.4-10.4); Monocytes # 0.1 10^3/uL (0.2-0.9); Monocytes % 1.7 %; Neutrophils # 1.73 10^3/uL (1.8-7.7); Neutrophils % 59.2 %; Nucleated Red Blood Cells % 0 %; Platelet Count 162 10^3/cmm (157-399); Red Blood Count 3.92 10^6/uL (3.85-5.65); Red Cell Distribution Width 11.9 % (12.1-15.1); White Blood Count 2.93 10^3/uL (3.29-11.43)
[2023-04-19 06:50] LABS: Alanine Aminotransferase 27 U/L (0-33); Albumin Level 4.1 g/dL (3.5-5.2); Alkaline Phosphatase 68 U/L (35-105); Anion Gap 14.4 (5-19); Aspartate Amino Transferase 20 U/L (0-32); Blood Urea Nitrogen 9 mg/dL (8-23); Calcium 9.1 mg/dL (8.5-10.5); Carbon Dioxide 23 mmol/L (22-29); Chloride 102 mmol/L (98-107); Globulin 2.6 g/dL (1.3-4.6); Glucose 188 mg/dL (65-115); Lipase 43 U/L (13-60); Osmolality Calculated 284 mOsm/kg (285-295); Potassium 4.4 mmol/L (3.5-5.1); Sodium 135 mmol/L (136-145); Total Bilirubin 0.8 mg/dL (0.15-1.2); Total Protein 6.7 g/dL (6.6-8.7)
[2023-04-19 07:18] LABS: Add Urine Microscopic? YES; Bilirubin Urine Neg (Negative); Blood Urine 2+ (Negative); Glucose Urine UA Norm (Normal); Ketones Urine 1+ (Negative); Leukocyte Esterase Urine Negative (Negative); Nitrate Urine Negative (Negative); Protein Urine Trace (Negative); Specific Gravity, Urine 1.005 (1.005-1.030); Sulfosalicylic Acid Urine Positive (Negative); Urine Appearance Clear (CLEAR); Urine Color Straw (Yellow); Urobilinogen Urine Norm (Negative); pH Urine 8 (5-7)
[2023-04-19 07:19] LABS: Squamous Epithelial Cell Urine 0-4 /hpf (0-5); WBC Urine 0-4 /hpf (0-5)
[2023-04-19 07:20] LABS: Add Urine Culture? No; Bacteria Urine TRACE /hpf
--- NOTE | 2023-04-19 07:23 | CTR_ITS ---
PROCEDURE INFORMATION: Exam: CT Abdomen And Pelvis Without Contrast Exam date and time: 04/19/2023 8:29 AM Age: 72 years old Clinical indication: Abdominal pain; Patient HX: Pancreatic cancer; Additional info: Flank pain TECHNIQUE: Imaging protocol: Computed tomography of the abdomen and pelvis without contrast. Radiation optimization: All CT scans at this facility use at least one of these dose optimization techniques: automated exposure control; mA and/or kV adjustment per patient size (includes targeted exams where dose is matched to clinical indication); or iterative reconstruction. REPORTING DATA: Count of CT and Cardiac NM exams in prior 12 months: This patient has received [address] and 0 known cardiac nuclear medicine studies in the 12 months prior to the current study. COMPARISON: CT abdomen wo/w con [id number] 12/04/2022 9:03 AM RADIATION DOSE METRICS: Total DLP (mGy-cm): 726.89 FINDINGS: Lungs: There is subsegmental atelectasis noted at the lung bases. Liver: Small calcific granulomas are noted in the liver. Gallbladder and bile ducts: Normal. No calcified stones. No ductal dilation. Pancreas: Normal. No ductal dilation. Spleen: Calcific granulomas are noted in the spleen Adrenal glands: Normal. No mass. Kidneys and ureters: The left kidney is swollen with moderate hydronephrosis due to staghorn calculi at the level of the renal pelvis measuring up to 15 x 13 x 11 mm. There is no hydroureter. No urolithiasis or obstructive uropathy is identified on the right. Stomach and bowel: Unremarkable. No obstruction. No mucosal thickening. Appendix: No evidence of appendicitis. Intraperitoneal space: Unremarkable. No free air. No significant fluid collection. Vasculature: Unremarkable. No abdominal aortic aneurysm. Lymph nodes: Unremarkable. No enlarged lymph nodes. Urinary bladder: Unremarkable as visualized. Reproductive: Unremarkable as visualized. Bones/joints: The bones are osteopenic with degenerative change. Soft tissues: Unremarkable. CT/CT kidney stone [id number] IMPRESSION: Obstructing 15 mm staghorn calculus at the left renal pelvis. Granulomatous disease in the liver and spleen.
[2023-04-19 07:27] LABS: Slide Review Slide Review Perform
[2023-04-19] MEDS: morphine 4 mg/mL SDV 1 mL IVP ×4 (08:19→12:26)
[2023-04-19] MEDS: ondansetron 2 mg/ML SDV 2 mL 4 MG IVP (08:19)
[2023-04-19] MEDS: cefTRIAXone 1,000 MG in sodium chloride 0.9% (plus) 50 ML 100 MG IV (09:34)
[2023-04-19] MEDS: sodium chlor 0.9% + KCl 20 mEq 20 MEQ/1,000 ML BAG 125 MEQ IV (10:35)
--- NOTE | 2023-04-19 10:42 | PC.PHAR ---
PT IS CURRENTLY TAKING 2 CHEMOTHERAPY MEDS: GEMCITABINE, ABRAXANE
[2023-04-19 11:15] VITALS: BP 128/80; PULSE 79; RESP 16; O2SAT 95
== END 2023-04-19 12:35 ==
PROVIDERS: Emergency Provider Family Medicine; PCP Nurse Practitioner
DX: N20.0 Calculus of kidney (principal); E11.9 Type 2 diabetes mellitus without complications; I25.10 Atherosclerotic heart disease of native coronary artery without angina pectoris; Z95.2 Presence of prosthetic heart valve; C25.2 Malignant neoplasm of tail of pancreas; Z79.82 Long term (current) use of aspirin; Z79.4 Long term (current) use of insulin; Z77.22 Contact with and (suspected) exposure to environmental tobacco smoke (acute) (chronic); I10 Essential (primary) hypertension; E78.2 Mixed hyperlipidemia
CPT/HCPCS: 36415; 74176; 80053; 81001; 83690; 85025; 87040; 96365; 96366; 96367; 96375; 96376; 99285; J0696; J2270; J2405; J3480

== ENCOUNTER 2023-04-29 14:00 | Oncology outpatient (recurring) (ONCR) | payer MEDICARE, MEDICAID, SELFPAY ==
[2023-04-15 07:53] LABS: Basophils % 0.6 %; Eosinophils # 0.3 10^3/uL (0.0-0.8); Hematocrit 34.5 % (36-47); Lymphocytes # 1.6 10^3/uL (0.8-4.8); Lymphocytes % 32.2 %; Mean Corpuscular HGB Conc 33.9 g/dL (30-55); Mean Corpuscular Hemoglobin 31.1 pg (27-33); Mean Corpuscular Volume 91.8 fl (85-98); Mean Platelet Volume 9.6 fL (7.4-10.4); Monocytes # 0.3 10^3/uL (0.2-0.9); Monocytes % 5.4 %; Neutrophils # 2.78 10^3/uL (1.8-7.7); Neutrophils % 55.2 %; Nucleated Red Blood Cells % 0 %; Platelet Count 166 10^3/cmm (157-399); Red Blood Count 3.76 10^6/uL (3.85-5.65); Red Cell Distribution Width 11.7 % (12.1-15.1); White Blood Count 5.03 10^3/uL (3.29-11.43)
[2023-04-15 08:11] LABS: Alanine Aminotransferase 27 U/L (0-33); Albumin Level 4.2 g/dL (3.5-5.2); Alkaline Phosphatase 66 U/L (35-105); Anion Gap 11.6 (5-19); Aspartate Amino Transferase 25 U/L (0-32); Blood Urea Nitrogen 13 mg/dL (8-23); Calcium 9.6 mg/dL (8.5-10.5); Carbon Dioxide 25 mmol/L (22-29); Chloride 103 mmol/L (98-107); Globulin 2.6 g/dL (1.3-4.6); Glucose 188 mg/dL (65-115); Osmolality Calculated 285 mOsm/kg (285-295); Potassium 4.6 mmol/L (3.5-5.1); Sodium 135 mmol/L (136-145); Total Bilirubin 0.3 mg/dL (0.15-1.2); Total Protein 6.8 g/dL (6.6-8.7)
[2023-04-15] MEDS: sodium chloride 0.9% 250 ML 75 ML IV (08:45)
[2023-04-15] MEDS: famotidine 20 mg/2 mL INJ IVP (08:46)
[2023-04-15] MEDS: palonosetron 0.25 mg/5 mL SDV IVP (08:49)
[2023-04-15] MEDS: gemcitabine 1,700 MG in sodium chloride 0.9% (100 ml) 100 ML 289.42 MG IV (09:41)
[2023-04-15 10:38] VITALS: BP 112/73; PULSE 88; RESP 16; TEMP 36.6; O2SAT 98
[2023-04-22 09:59] VITALS: BMI 31.6
[2023-04-22 10:00] VITALS: BP 129/74; PULSE 75; RESP 18; TEMP 36.7; O2SAT 97
[2023-04-22 10:18] LABS: Basophils % 0.7 %; Eosinophils # 0.1 10^3/uL (0.0-0.8); Eosinophils % 1.8 %; Hematocrit 32.3 % (36-47); Lymphocytes # 1.7 10^3/uL (0.8-4.8); Lymphocytes % 61.5 %; Mean Corpuscular HGB Conc 34.4 g/dL (30-55); Mean Corpuscular Hemoglobin 31.3 pg (27-33); Mean Platelet Volume 9.4 fL (7.4-10.4); Monocytes # 0.1 10^3/uL (0.2-0.9); Monocytes % 4.7 %; Neutrophils % 30.6 %; Nucleated Red Blood Cells % 0 %; Platelet Count 139 10^3/cmm (157-399); Red Blood Count 3.55 10^6/uL (3.85-5.65); Red Cell Distribution Width 11.6 % (12.1-15.1); White Blood Count 2.75 10^3/uL (3.29-11.43)
[2023-04-22 10:39] LABS: Alanine Aminotransferase 21 U/L (0-33); Alkaline Phosphatase 61 U/L (35-105); Anion Gap 12.3 (5-19); Aspartate Amino Transferase 20 U/L (0-32); Blood Urea Nitrogen 12 mg/dL (8-23); Carbon Dioxide 25 mmol/L (22-29); Chloride 99 mmol/L (98-107); Globulin 2.3 g/dL (1.3-4.6); Glucose 223 mg/dL (65-115); Osmolality Calculated 281 mOsm/kg (285-295); Potassium 4.3 mmol/L (3.5-5.1); Sodium 132 mmol/L (136-145); Total Bilirubin 0.5 mg/dL (0.15-1.2); Total Protein 6.3 g/dL (6.6-8.7)
[2023-04-22 11:19] LABS: Neutrophils # 0.84 10^3/uL (1.8-7.7)
[2023-04-29 13:30] VITALS: BP 120/76; PULSE 68; RESP 16; TEMP 36.3; O2SAT 99
[2023-04-29 14:06] LABS: Alanine Aminotransferase 20 U/L (0-33); Albumin Level 3.8 g/dL (3.5-5.2); Alkaline Phosphatase 59 U/L (35-105); Anion Gap 12.3 (5-19); Aspartate Amino Transferase 21 U/L (0-32); Blood Urea Nitrogen 8 mg/dL (8-23); Calcium 9.1 mg/dL (8.5-10.5); Carbon Dioxide 26 mmol/L (22-29); Chloride 102 mmol/L (98-107); Globulin 2.5 g/dL (1.3-4.6); Glucose 95 mg/dL (65-115); Osmolality Calculated 280 mOsm/kg (285-295); Potassium 4.3 mmol/L (3.5-5.1); Sodium 136 mmol/L (136-145); Total Bilirubin 0.3 mg/dL (0.15-1.2); Total Protein 6.3 g/dL (6.6-8.7)
[2023-04-29 14:22] LABS: Basophils # 0.1 10^3/uL (0.0-0.1); Basophils % 1.3 %; Eosinophils # 0.2 10^3/uL (0.0-0.8); Hematocrit 31.5 % (36-47); Lymphocytes # 2.9 10^3/uL (0.8-4.8); Lymphocytes % 61.1 %; Mean Corpuscular HGB Conc 33.7 g/dL (30-55); Mean Corpuscular Hemoglobin 31.5 pg (27-33); Mean Corpuscular Volume 93.8 fl (85-98); Mean Platelet Volume 8.9 fL (7.4-10.4); Monocytes # 0.7 10^3/uL (0.2-0.9); Monocytes % 13.8 %; Neutrophils % 19.4 %; Nucleated Red Blood Cells % 0 %; Platelet Count 429 10^3/cmm (157-399); Red Blood Count 3.36 10^6/uL (3.85-5.65); Red Cell Distribution Width 12.9 % (12.1-15.1)
[2023-04-29 14:26] LABS: Neutrophils # 0.91 10^3/uL (1.8-7.7)
== END 2023-05-10 23:59 | disposition home or self-care (01) ==
PROVIDERS: Nurse Practitioner Family; PCP Nurse Practitioner; Visit Provider Internal Medicine Medical Oncology
DX: C25.2 Malignant neoplasm of tail of pancreas (principal)
CPT/HCPCS: 36591; 80053; 85025; 96367; 96375; 96413; 96417; 99214; J1100; J1642; J2469; J3490; J7050; J9201; J9264

== ENCOUNTER → 2023-05-21 10:37 | Outpatient (BNVA) | payer MEDICARE, MEDICAID, SELFPAY | PROVIDERS: PCP Nurse Practitioner; Visit Provider Internal Medicine | DX: I50.32 Chronic diastolic (congestive) heart failure; E78.2 Mixed hyperlipidemia; E11.649 Type 2 diabetes mellitus with hypoglycemia without coma; I25.10 Atherosclerotic heart disease of native coronary artery without angina pectoris; D35.00 Benign neoplasm of unspecified adrenal gland; E11.59 Type 2 diabetes mellitus with other circulatory complications; Z79.4 Long term (current) use of insulin | CPT/HCPCS: 99214 ==

== ENCOUNTER 2023-06-05 08:17 | Emergency (ER) | payer MEDICARE, MEDICAID, SELFPAY ==
--- NOTE | 2023-06-05 08:24 | XR_ITS ---
WS: [id number] Exam: XR chest 1V portable [id number] Date/Time of Exam: 06/05/2023 8:24 AM Reason For Exam: chest pain Comparison 02/01/2020. Lungs are clear and fully inflated. Normal cardiomediastinal silhouette. Signs of prior cardiac valve replacement and CABG surgery. A right-sided port ends at the cavoatrial junction. No pleural effusio ns. Bony structures are intact. IMPRESSION: 1. No acute cardiopulmonary finding.
--- NOTE | 2023-06-05 08:28 | ECG_ITS ---
[facility] Test Date: 2023-06-05 Pat Name: Donna Villarreal Department: Room: Gender: Female Admitting Manager: : 1950 Requested By: Reuben Paul Order Number: [id number] Marcelo MD: Lori Moss M.D. Measurements Intervals [place] Rate: 66 P: 46 GA: 164 QRS: 51 QRSD: 101 T: 57 QT: 389 QTc: 408 Interpretive Statements SINUS RHYTHM POSSIBLE RIGHT VENTRICULAR CONDUCTION DELAY [RSR (QR) IN V1/V2] No previous ECG available for comparison Electronically Signed On 06-05-2023 11:31:10 CDT by Lori Moss M.D. [id number]
[2023-06-05 08:29] VITALS: BP 146/76; PULSE 80; RESP 17; O2SAT 99
[2023-06-05 08:36] VITALS: PULSE 70; RESP 17; O2SAT 100
--- NOTE | 2023-06-05 08:46 | W.ED.CHESTPA ---
HPI - Chest Pain General: Chief Complaint: Chest Pain Stated Complaint: chest pain Time Seen by Provider: 06/05/23 08:17 Source: patient Mode of arrival: EMS History of Present Illness: 73-year-old female presents emergency room complaining of chest pain that began this morning at 630. Patient has no radiation of the pain patient is resolved at this point no other recent episodes. Patient has a history of pancreatic cancer and is currently receiving treatment she was unable to receive her treatments this week because of neutropenia and receiving Neupogen the last 2 days. Future chemotherapy treatments on hold pending her white count recovery. MD complaint: chest pain Pertinent past history: coronary artery disease Onset (ago): hour(s) Timing of current episode: episodic and now resolved Prior episodes: No Onset: during rest Pain location: substernal Pain radiation: none Quality: sharp Relieving factors: nothing Exacerbating factors: nothing Associated symptoms: Deny abdominal pain, diaphoresis, dyspnea, fever(s), leg edema, nausea, palpitations, sense of impending doom, syncope or vomiting Treatment prior to arrival: aspirin Review of Systems Const: Denies: fever(s) or diaphoresis Card: Denies: palpitations or syncope Resp: Denies: dyspnea GI: Denies: abdominal pain, nausea or vomiting PFSH ED PFSH: Medical History (Updated 06/05/23 @ 11:20 by Reuben Miguel DO) Adrenal nodule Anemia Aortic stenosis Bacterial UTI CAD (coronary artery disease) Diabetes Forearm fracture History of kidney stones History of nonmelanoma skin cancer Hypertension Hypomagnesemia Injury of right forearm Mixed hyperlipidemia Otitis media Postoperative follow-up Skin inflammation Skin lesion of hand Vitamin D deficiency Surgical History (Updated 05/27/23 @ 16:33 by Radu Welsh MD) History of ankle surgery 1999 fell and broke right ankle Plate and screws at [facility] History of aortic valve replacement (01/16/21) Bioprosthetic aortic valve replacement and single-vessel coronary artery bypass History of cystoscopy History of urethral stent S/P shoulder surgery 1999 shoulder joint repair right Surgery done at [facility] Family History Father Emphysema of lung Mother Pancreatic cancer Social History Smoking and tobacco/nicotine status: never used tobacco/nicotine Second hand smoke exposure: Yes Alcohol intake: never Substance/Drug Use: never Caregiver/support person: Yes Lives independently: Yes Household members: spouse Housing: Manufactured/Mobile home Marital status: Number of children: 2 Highest education level completed: 6th Grade service: No Current occupational status: retired Current occupation: Retired [employer] Vital Signs: Vital signs: Vital Signs Pulse Rate 70 06/05/23 08:36 Respiratory Rate 17 06/05/23 08:36 Blood Pressure 146/76 06/05/23 08:29 Pulse Oximetry 100 06/05/23 08:36 Oxygen Delivery Me thod Room Air 06/05/23 08:29 MDM - Chest Pain Medical Decision Making No evidence of acute coronary syndrome symptoms relieved by the time she arrived history of Cardiac enzymes and EKG did not show any acute changes we will discharge patient home follow-up with neurology suspect discomfort may have been sternal possibly been from her Neupogen Medical Records I reviewed the patient's medical records. Lab Data I reviewed the patient's lab results. 06/05/23 08:45 06/05/23 08:45 Laboratory Results WBC 11.28 10^3/uL (3.29-11.43) 06/05/23 08:45 RBC 3.28 10^6/uL (3.85-5.65) L 06/05/23 08:45 Hgb 10.40 g/dL (11.27-16.99) L 06/05/23 08:45 Hct 32.2 % (36-47) L 06/05/23 08:45 MCV 98.2 fl (85-98) H 06/05/23 08:45 MCH 31.7 pg (27-33) 06/05/23 08:45 MCHC 32.3 g/dL (30-55) 06/05/23 08:45 RDW 12.6 % (12.1-15.1) 06/05/23 08:45 Plt Count 140 10^3/cmm (157-399) L 06/05/23 08:45 MPV 10.3 fL (7.4-10.4) 06/05/23 08:45 Lymph % (Auto) Not Reportable 06/05/23 08:45 [place] % (Auto) Not Reportable 06/05/23 08:45 Lymph # (Auto) Not Reportable 06/05/23 08:45 [place] # (Auto) Not Reportable 06/05/23 08:45 Total Counted 100 (0-100) 06/05/23 08:45 Atypical Lymphs % 0.0 % (0-5) 06/05/23 08:45 Absolute Neutrophils 9.0 10^3/cmm (1.4-6.5) H 06/05/23 08:45 Segmented Neutrophils 72 % 06/05/23 08:45 Abs Segm Neuts (Man) 8.1 10/cmm (1.6-7.1) H 06/05/23 08:45 Band Neutrophils 8.0 % 06/05/23 08:45 Abs Band Neuts (Man) 0.9 10^3/cmm (0.0-1.2) 06/05/23 08:45 Absolute Lymphocytes 1.9 10^3/cmm (1.2-3.4) 06/05/23 08:45 Lymphocytes (Manual) 17 % 06/05/23 08:45 Monocytes (Manual) 2.0 % 06/05/23 08:45 Absolute Monocytes 0.2 10^3/cmm (0.1-0.6) 06/05/23 08:45 Eosinophils (Manual) 1 % 06/05/23 08:45 Absolute Eosinophils 0.1 10^3/cmm (0.0-0.7) 06/05/23 08:45 Basophils (Manual) 0.0 % 06/05/23 08:45 Absolute Basophils 0.0 10^3/cmm (0.0-0.2) 06/05/23 08:45 Metamyelocytes 0.0 % 06/05/23 08:45 Myelocytes 0.0 % 06/05/23 08:45 Nucleated RBCs 1.0 /100WBC (0-1) 06/05/23 08:45 Platelet Estimate Normal (Normal) 06/05/23 08:45 Sodium 139 mmol/L (136-145) 06/05/23 08:45 Potassium 4.4 mmol/L (3.5-5.1) 06/05/23 08:45 Chloride 106 mmol/L (98-107) 06/05/23 08:45 Carbon Dioxide 24 mmol/L (22-29) 06/05/23 08:45 Anion Gap 13.4 (5-19) 06/05/23 08:45 BUN 12 mg/dL (8-23) 06/05/23 08:45 Creatinine 0.5 mg/dL (0.5-0.9) 06/05/23 08:45 GFR Calculation Not Reportable 06/05/23 08:45 Glucose 114 mg/dL (65-115) 06/05/23 08:45 Calculated Osmolality 289 mOsm/kg (285-295) 06/05/23 08:45 Calcium 9.5 mg/dL (8.5-10.5) 06/05/23 08:45 Total Bilirubin 0.4 mg/dL (0.15-1.2) 06/05/23 08:45 AST 29 U/L (0-32) 06/05/23 08:45 ALT 25 U/L (0-33) 06/05/23 08:45 Alkaline Phosphatase 79 U/L (35-105) 06/05/23 08:45 Troponin T Baseline 12 ng/L (0-10) H 06/05/23 08:45 Troponin T 120 Minute 11.95 ng/L (0-10) H 06/05/23 10:30 Delta Troponin T -0.05 ABS# (0-10) L 06/05/23 10:30 Total Protein 6.2 g/dL (6.6-8.7) L 06/05/23 08:45 Albumin 4.2 g/dL (3.5-5.2) 06/05/23 08:45 Globulin 2.0 g/dL (1.3-4.6) 06/05/23 08:45 All radiology interpretation(s) finalized by discharge Discharge Plan Discharge Patient Disposition: Home Clinical Impression: Atypical chest pain, Malignant neoplasm of tail of pancreas, Chemotherapy induced neutropenia, Side effect of medication Condition: Stable Prescriptions: No Action acetaminophen [Tylenol Arthritis Pain] 650 mg tablet extended release 1,300 mg PO Q12H multivitamin Tablet 1 tab PO DAILY aspirin [Adult Low Dose Aspirin] 81 mg tablet,delayed release (DR/EC) 81 mg PO DAILY ascorbate calcium (vitamin C) 500 mg tablet 500 mg PO DAILY (DME) Diabetic Shoes See Rx Instructions .Route .MEDSUPPLY Qty: 1 0RF Rx Instructions: As directed, with 3 pairs of inserts made by [employer] cholecalciferol (vitamin D3) 25 mcg (1,000 unit) capsule 5,000 unit PO DAILY omega-3 acid ethyl esters 1 gram capsule 1 cap PO DAILY (DME) Diabetic Shoes with 3 Pairs of Inserts See Rx Instructions .Route .MEDSUPPLY Qty: 1 0RF Rx Instructions: As directed by HOME lorazepam 1 mg tablet 0.5 - 1 mg PO Q6H PRN (Reason: Severe Nausea) Qty: 30 3RF prochlorperazine maleate [Compazine] 10 mg tablet 10 mg PO Q6H PRN (Reason: Mild Nausea) Qty: 30 3RF senna 8.6 mg capsule 8.6 mg PO BID (DME) lancets [Accu-Chek Softclix Lancets] Misc See Rx Instructions .ROUTE .MEDSUPPLY Qty: 100 0RF Rx Instructions: As directed four times per day ([facility] [place]) FreeStyle Myke 2 [place] Misc See Rx Instructions .Route Qty: 1 3RF Rx Instructions: Check blood sugar 4 times a day. ([facility] [place] [place]) FreeStyle Myke 2 Sensor Kit See Rx Instructions .Route Qty: 1 3RF Rx Instructions: As directed atorvastatin 80 mg tablet 80 mg PO DAILY Qty: 90 3RF ([facility] [place]) pen needle, diabetic [BD Kelly 2nd Gen Pen Needle] 32 gauge x 5/32 needle See Rx Instructions .ROUTE .COMPLEX Qty: 100 0RF Dose Instruction: USE DIRECTED DAILY Rx Instructions: USE DIRECTED DAILY lidocaine-prilocaine 2.5-2.5 % cream 1 applic topical DIRECTED Qty: 30 3RF Rx Instructions: place quarter sized amount 30 min prior to port access, cover with plastic wrap ([facility]) wheelchair See Rx Instructions .Route .MEDSUPPLY Qty: 1 0RF Rx Instructions: As directed ([facility]) walker See Rx Instructions .Route .MEDSUPPLY Qty: 1 0RF Rx Instructions: As directed ([facility]) wheelchair See Rx Instructions .Route .MEDSUPPLY Qty: 1 0RF Rx Instructions: As directed metoprolol succinate 25 mg tablet extended release 24 hr 12.5 mg PO DAILY ([facility] [place]) OneTouch Verio test strips Strip See Rx Instructions .ROUTE .COMPLEX Qty: 100 1RF Dose Instruction: USE ONE STRIP TO TEST BLOOD SUGAR 3-4 TIMES DAILY Rx Instructions: USE ONE STRIP TO TEST BLOOD SUGAR 3-4 TIMES DAILY magnesium oxide 400 mg (241.3 mg magnesium) tablet 400 mg PO DAILY Tresiba FlexTouch U-100 100 unit/mL (3 mL) insulin pen 18 unit SUBCUT DAILY loratadine 10 mg Tablet 10 mg PO DAILY Discharge Orders: Discharge ED (Routine); Ordered 06/05/23 Ordered By: Reuben Miguel Referrals: Talisha Saini FNP [Primary Care Provider] - Patient Instructions: Opioid Safety, Pain Management Activity Restrictions/Additional Instructions: Thank you for choosing [facility] for your healthcare needs today. Please realize this is an emergency room and that we are providing you with a medical screening exam and this may not be complete and all inclusive of all the testing and or work up that you may need to determine your ailment or severity of your illness. It is very important that you follow up as instructed or that you return to the Emergency Department should you have concerns or if your condition changes or worsens in any way. You were seen today for chest pain. Your cardiac enzymes and EKG were unremarkable. Follow-up with your primary care doctor and oncology team return for worsening symptoms. Coding Level of Care Code ED Framing Mill Supervisor for Hilary Houston
[2023-06-05 08:57] LABS: Hematocrit 32.2 % (36-47); Mean Corpuscular HGB Conc 32.3 g/dL (30-55); Mean Corpuscular Hemoglobin 31.7 pg (27-33); Mean Corpuscular Volume 98.2 fl (85-98); Mean Platelet Volume 10.3 fL (7.4-10.4); Platelet Count 140 10^3/cmm (157-399); Red Blood Count 3.28 10^6/uL (3.85-5.65); Red Cell Distribution Width 12.6 % (12.1-15.1); White Blood Count 11.28 10^3/uL (3.29-11.43)
--- NOTE | 2023-06-05 09:15 | PC.NURSE ---
Patient refused 324 mg asprin when I offered it to her because she stated that she took 4 baby asprin at home and did not want to take more aprin.
[2023-06-05 09:17] LABS: Alanine Aminotransferase 25 U/L (0-33); Albumin Level 4.2 g/dL (3.5-5.2); Alkaline Phosphatase 79 U/L (35-105); Anion Gap 13.4 (5-19); Aspartate Amino Transferase 29 U/L (0-32); Blood Urea Nitrogen 12 mg/dL (8-23); Calcium 9.5 mg/dL (8.5-10.5); Carbon Dioxide 24 mmol/L (22-29); Chloride 106 mmol/L (98-107); Glucose 114 mg/dL (65-115); Osmolality Calculated 289 mOsm/kg (285-295); Potassium 4.4 mmol/L (3.5-5.1); Sodium 139 mmol/L (136-145); Total Bilirubin 0.4 mg/dL (0.15-1.2); Total Protein 6.2 g/dL (6.6-8.7); Troponin(5th) Baseline 12 ng/L (0-10)
[2023-06-05 09:28] LABS: Slide Review Slide Review Perform
[2023-06-05 09:29] LABS: Absolute Segmented Neutrophil 8.1 10/cmm (1.6-7.1); Band Neutrophils Absolute 0.9 10^3/cmm (0.0-1.2); Segmented Neutrophils 72 %; Total Cells Counted 100 (0-100)
[2023-06-05 09:30] LABS: Lymphocytes 17 %; Monocytes Absolute 0.2 10^3/cmm (0.1-0.6)
[2023-06-05 09:32] LABS: Absolute Eosinophils 0.1 10^3/cmm (0.0-0.7); Eosinophils 1 %; Lymphocytes Absolute 1.9 10^3/cmm (1.2-3.4); Platelet Estimate Normal (Normal)
--- NOTE | 2023-06-05 10:28 | ECG_ITS ---
[facility] Test Date: 2023-06-05 Pat Name: Donna Villarreal Department: Room: Gender: Female Flight Agent: : 1950 Requested By: Reuben Paul Order Number: [id number] Marcelo MD: Lori Moss M.D. Measurements Intervals Deane Rate: 64 P: 40 IA: 159 QRS: 36 QRSD: 95 T: 49 QT: 393 QTc: 406 Interpretive Statements SINUS RHYTHM POSSIBLE RIGHT VENTRICULAR CONDUCTION DELAY [RSR (QR) IN V1/V2] Compared to ECG 06/05/2023 08:28:19 No significant changes Electronically Signed On 06-05-2023 11:32:25 CDT by Lori Moss M.D. [id number]
[2023-06-05 11:08] LABS: Troponin 5 2HR 11.95 ng/L (0-10)
[2023-06-05 11:10] LABS: Troponin 5 2HR Delta -0.05 ABS# (0-10)
== END 2023-06-05 11:58 | disposition home or self-care (01) ==
PROVIDERS: Emergency Provider Family Medicine; PCP Nurse Practitioner
DX: R07.89 Other chest pain (principal); D70.1 Agranulocytosis secondary to cancer chemotherapy; C25.2 Malignant neoplasm of tail of pancreas; Z79.82 Long term (current) use of aspirin; Z77.22 Contact with and (suspected) exposure to environmental tobacco smoke (acute) (chronic); I25.10 Atherosclerotic heart disease of native coronary artery without angina pectoris; E11.9 Type 2 diabetes mellitus without complications; I10 Essential (primary) hypertension; E78.2 Mixed hyperlipidemia; T45.8X5A Adverse effect of other primarily systemic and hematological agents, initial encounter; X58.XXXA Exposure to other specified factors, initial encounter
CPT/HCPCS: 36415; 71045; 80053; 84484; 85007; 85025; 93005; 99285

== ENCOUNTER 2023-06-10 10:00 | Oncology outpatient (recurring) (ONCR) | payer MEDICARE, MEDICAID, SELFPAY ==
[2023-05-27 10:12] VITALS: BP 145/78; PULSE 72; RESP 16; TEMP 36.2; O2SAT 98
[2023-05-27 10:31] LABS: Basophils # 0.1 10^3/uL (0.0-0.1); Basophils % 0.9 %; Eosinophils # 0.2 10^3/uL (0.0-0.8); Eosinophils % 2.6 %; Hematocrit 34.8 % (36-47); Lymphocytes # 2.2 10^3/uL (0.8-4.8); Lymphocytes % 27.3 %; Mean Corpuscular Hemoglobin 31.4 pg (27-33); Mean Corpuscular Volume 95.1 fl (85-98); Mean Platelet Volume 9.3 fL (7.4-10.4); Monocytes # 0.5 10^3/uL (0.2-0.9); Monocytes % 6.6 %; Neutrophils # 5.13 10^3/uL (1.8-7.7); Neutrophils % 62.5 %; Nucleated Red Blood Cells % 0 %; Platelet Count 281 10^3/cmm (157-399); Red Blood Count 3.66 10^6/uL (3.85-5.65); Red Cell Distribution Width 12.6 % (12.1-15.1)
[2023-05-27 10:51] LABS: Estmated Average Glucose 137; Hemoglobin A1C 6.4 % (4.0-6.0)
[2023-05-27 11:01] LABS: Creatinine Urine, Random 101 mg/dL (28-217); Microalbum Creatinine Ratio Ur 40 mg/dL (0-20); Microalbumin Random Urine 4 ug/dL (0-20)
[2023-05-27 11:11] LABS: Alanine Aminotransferase 16 U/L (0-33); Alkaline Phosphatase 75 U/L (35-105); Anion Gap 13.3 (5-19); Aspartate Amino Transferase 21 U/L (0-32); Blood Urea Nitrogen 12 mg/dL (8-23); Calcium 9.9 mg/dL (8.5-10.5); Cancer Antigen 19 9 168.4 U/mL (0-35); Carbon Dioxide 26 mmol/L (22-29); Chloride 103 mmol/L (98-107); Chol HDL Ratio 2.88 mg/dL (0.0-4.40); Cholesterol 115 mg/dL (0-200); Creatinine Clr Calc Pharmacy 74.1927; Globulin 2.8 g/dL (1.3-4.6); Glucose 131 mg/dL (65-115); HDL Cholesterol 40 mg/dL (60-100); LDL Cholesterol Calculated 55 mg/dL (50-129); LDL HDL Ratio 1.38 RATIO (0.00-3.22); Osmolality Calculated 288 mOsm/kg (285-295); Potassium 4.3 mmol/L (3.5-5.1); Sodium 138 mmol/L (136-145); Total Bilirubin 0.5 mg/dL (0.15-1.2); Total Protein 6.8 g/dL (6.6-8.7); Triglycerides 98 mg/dL (0-150)
[2023-05-27] MEDS: sodium chloride 0.9% 250 ML 75 ML IV (11:52)
[2023-05-27] MEDS: palonosetron 0.25 mg/5 mL SDV IVP (11:57)
[2023-05-27] MEDS: famotidine 20 mg/2 mL INJ IVP (12:06)
[2023-05-27] MEDS: gemcitabine 1,700 MG in sodium chloride 0.9% (100 ml) 100 ML 289.42 MG IV (13:37)
[2023-05-27 14:17] VITALS: BP 133/75; PULSE 60; RESP 16; TEMP 36.2
[2023-06-03 07:47] VITALS: BP 151/75; PULSE 78; RESP 16; TEMP 36.2; O2SAT 97
[2023-06-03 08:02] LABS: Basophils % 0.8 %; Eosinophils # 0.2 10^3/uL (0.0-0.8); Eosinophils % 6.6 %; Hematocrit 30.8 % (36-47); Lymphocytes # 1.3 10^3/uL (0.8-4.8); Lymphocytes % 48.4 %; Mean Corpuscular HGB Conc 33.1 g/dL (30-55); Mean Corpuscular Hemoglobin 31.5 pg (27-33); Mean Corpuscular Volume 95.1 fl (85-98); Mean Platelet Volume 9.8 fL (7.4-10.4); Monocytes # 0.2 10^3/uL (0.2-0.9); Monocytes % 6.2 %; Neutrophils % 37.6 %; Nucleated Red Blood Cells % 0 %; Platelet Count 148 10^3/cmm (157-399); Red Blood Count 3.24 10^6/uL (3.85-5.65); Red Cell Distribution Width 12.2 % (12.1-15.1); White Blood Count 2.58 10^3/uL (3.29-11.43)
[2023-06-03 08:26] LABS: Alanine Aminotransferase 22 U/L (0-33); Albumin Level 3.9 g/dL (3.5-5.2); Alkaline Phosphatase 67 U/L (35-105); Anion Gap 10.4 (5-19); Aspartate Amino Transferase 24 U/L (0-32); Blood Urea Nitrogen 9 mg/dL (8-23); Calcium 9.4 mg/dL (8.5-10.5); Carbon Dioxide 25 mmol/L (22-29); Chloride 103 mmol/L (98-107); Creatinine Clr Calc Pharmacy 75.2845; Globulin 2.3 g/dL (1.3-4.6); Glucose 151 mg/dL (65-115); Osmolality Calculated 280 mOsm/kg (285-295); Potassium 4.4 mmol/L (3.5-5.1); Sodium 134 mmol/L (136-145); Total Bilirubin 0.3 mg/dL (0.15-1.2); Total Protein 6.2 g/dL (6.6-8.7)
[2023-06-03 09:00] LABS: Neutrophils # 0.97 10^3/uL (1.8-7.7)
[2023-06-03] MEDS: filgrastim-sndz 480 mcg/0.8 mL Syringe SUBCUT (11:15)
[2023-06-04] MEDS: filgrastim-sndz 480 mcg/0.8 mL Syringe SUBCUT (13:17)
[2023-06-04 13:20] VITALS: BP 125/82; PULSE 76; RESP 16; TEMP 36.5; O2SAT 99; BMI 32.9
[2023-06-10 10:25] VITALS: BP 177/81; PULSE 66; RESP 16; TEMP 36.6; O2SAT 98
[2023-06-10 10:34] LABS: Basophils # 0.1 10^3/uL (0.0-0.1); Basophils % 0.6 %; Eosinophils # 0.2 10^3/uL (0.0-0.8); Eosinophils % 2.2 %; Hematocrit 32.3 % (36-47); Lymphocytes # 2.4 10^3/uL (0.8-4.8); Lymphocytes % 26.9 %; Mean Corpuscular HGB Conc 32.8 g/dL (30-55); Mean Corpuscular Hemoglobin 31.6 pg (27-33); Mean Corpuscular Volume 96.4 fl (85-98); Mean Platelet Volume 9.5 fL (7.4-10.4); Monocytes # 1.1 10^3/uL (0.2-0.9); Monocytes % 12.7 %; Neutrophils % 51.6 %; Nucleated Red Blood Cells # 0.1 /100WBC; Nucleated Red Blood Cells % 0.6 %; Platelet Count 248 10^3/cmm (157-399); Red Blood Count 3.35 10^6/uL (3.85-5.65); Red Cell Distribution Width 13.4 % (12.1-15.1)
[2023-06-10 10:52] LABS: Alanine Aminotransferase 26 U/L (0-33); Albumin Level 3.9 g/dL (3.5-5.2); Alkaline Phosphatase 92 U/L (35-105); Anion Gap 12.7 (5-19); Aspartate Amino Transferase 25 U/L (0-32); Blood Urea Nitrogen 8 mg/dL (8-23); Calcium 9.3 mg/dL (8.5-10.5); Carbon Dioxide 25 mmol/L (22-29); Chloride 105 mmol/L (98-107); Globulin 2.7 g/dL (1.3-4.6); Glucose 143 mg/dL (65-115); Osmolality Calculated 287 mOsm/kg (285-295); Potassium 4.7 mmol/L (3.5-5.1); Sodium 138 mmol/L (136-145); Total Bilirubin 0.3 mg/dL (0.15-1.2); Total Protein 6.6 g/dL (6.6-8.7)
[2023-06-10 11:44] LABS: Slide Review Slide Review Perform
[2023-06-10 12:30] VITALS: BMI 33.7
[2023-06-10] MEDS: sodium chloride 0.9% 250 ML 75 ML IV (12:31)
[2023-06-10] MEDS: famotidine 20 mg/2 mL INJ IVP (12:31)
[2023-06-10] MEDS: palonosetron 0.25 mg/5 mL SDV IVP (12:32)
[2023-06-10] MEDS: gemcitabine 1,700 MG in sodium chloride 0.9% (100 ml) 100 ML 289.42 MG IV (14:24)
[2023-06-10 15:10] VITALS: BP 126/87; PULSE 61; RESP 17; TEMP 36.8; O2SAT 97
== END 2023-06-10 23:59 | disposition home or self-care (01) ==
PROVIDERS: Internal Medicine; PCP Nurse Practitioner; Visit Provider Internal Medicine Medical Oncology
DX: C25.2 Malignant neoplasm of tail of pancreas (principal); Z79.899 Other long term (current) drug therapy; Z51.11 Encounter for antineoplastic chemotherapy
CPT/HCPCS: 80053; 80061; 82044; 83036; 85025; 86301; 96367; 96372; 96375; 96413; 96417; 99214; 99215; J1100; J1642; J2469; J3490; J7050; J9201; J9264; Q5101

== ENCOUNTER → 2023-06-19 14:00 | Outpatient (BNVA) | payer MEDICARE, MEDICAID, SELFPAY | PROVIDERS: PCP Nurse Practitioner; Visit Provider Nurse Practitioner Family | DX: Z85.828 Personal history of other malignant neoplasm of skin (principal); L57.0 Actinic keratosis; L57.8 Other skin changes due to chronic exposure to nonionizing radiation; L81.4 Other melanin hyperpigmentation | CPT/HCPCS: 17000; 99213 ==

== ENCOUNTER → 2023-06-20 08:39 | Outpatient (BNVA) | payer MEDICARE, MEDICAID, SELFPAY | PROVIDERS: PCP Nurse Practitioner; Visit Provider Nurse Practitioner Family | DX: I10 Essential (primary) hypertension (principal); I35.0 Nonrheumatic aortic (valve) stenosis; I25.10 Atherosclerotic heart disease of native coronary artery without angina pectoris | CPT/HCPCS: 99214 ==

== ENCOUNTER 2023-06-24 09:47 | Oncology outpatient (recurring) (ONCR) | payer MEDICARE, MEDICAID, SELFPAY ==
[2023-06-24 10:00] VITALS: BP 177/79; PULSE 77; RESP 17; TEMP 36.7; O2SAT 99; BMI 34.6
[2023-06-24 10:16] LABS: Basophils % 0.9 %; Eosinophils # 0.1 10^3/uL (0.0-0.8); Eosinophils % 2.4 %; Hematocrit 29.8 % (36-47); Lymphocytes # 1.7 10^3/uL (0.8-4.8); Lymphocytes % 40.2 %; Mean Corpuscular HGB Conc 32.6 g/dL (30-55); Mean Corpuscular Hemoglobin 31.7 pg (27-33); Mean Corpuscular Volume 97.4 fl (85-98); Mean Platelet Volume 9.4 fL (7.4-10.4); Monocytes # 0.6 10^3/uL (0.2-0.9); Monocytes % 12.9 %; Neutrophils # 1.84 10^3/uL (1.8-7.7); Neutrophils % 43.4 %; Nucleated Red Blood Cells % 0 %; Platelet Count 331 10^3/cmm (157-399); Red Blood Count 3.06 10^6/uL (3.85-5.65); Red Cell Distribution Width 14.7 % (12.1-15.1); White Blood Count 4.25 10^3/uL (3.29-11.43)
[2023-06-24 10:42] LABS: Alanine Aminotransferase 29 U/L (0-33); Albumin Level 3.9 g/dL (3.5-5.2); Alkaline Phosphatase 81 U/L (35-105); Anion Gap 11.4 (5-19); Aspartate Amino Transferase 26 U/L (0-32); Blood Urea Nitrogen 9 mg/dL (8-23); Calcium 9.4 mg/dL (8.5-10.5); Carbon Dioxide 26 mmol/L (22-29); Chloride 106 mmol/L (98-107); Globulin 2.5 g/dL (1.3-4.6); Glucose 147 mg/dL (65-115); Osmolality Calculated 289 mOsm/kg (285-295); Potassium 4.4 mmol/L (3.5-5.1); Sodium 139 mmol/L (136-145); Total Bilirubin 0.4 mg/dL (0.15-1.2); Total Protein 6.4 g/dL (6.6-8.7)
[2023-06-24] MEDS: palonosetron 0.25 mg/5 mL SDV IVP (13:28)
[2023-06-24] MEDS: sodium chloride 0.9% 250 ML 75 ML IV (13:28)
[2023-06-24] MEDS: famotidine 20 mg/2 mL INJ IVP (13:33)
[2023-06-24] MEDS: gemcitabine 1,700 MG in sodium chloride 0.9% (100 ml) 100 ML 289.42 MG IV (15:05)
[2023-06-24 15:57] VITALS: BP 163/70; PULSE 65; RESP 17; TEMP 35.6; O2SAT 98
== END 2023-07-10 23:59 | disposition home or self-care (01) ==
PROVIDERS: Internal Medicine; PCP Nurse Practitioner; Visit Provider Internal Medicine Medical Oncology
DX: D70.1 Agranulocytosis secondary to cancer chemotherapy (principal); R97.1 Elevated cancer antigen 125 [CA 125]; Z51.11 Encounter for antineoplastic chemotherapy; C25.2 Malignant neoplasm of tail of pancreas; Z79.899 Other long term (current) drug therapy
CPT/HCPCS: 80053; 85025; 96367; 96375; 96413; 96417; 99215; J1100; J1642; J2469; J3490; J7050; J9201; J9264

== ENCOUNTER 2023-07-07 10:00 | Outpatient (CLI) | payer MEDICARE, MEDICAID, SELFPAY ==
--- NOTE | 2023-07-07 10:15 | USCV_ITS ---
Donna Villarreal Age: 73 Gender: F : 1950 Exam Date: 07/07/2023 10:20 Ordering Phys: Jessica Owen Technologist: Claire Saenz Exam Location: [facility] [place] Indication: HTN, AVR 2020, chf, BP: 5 / 0 HR: 63 Rhythm: Sinus Technical Quality: Adequate MEASUREMENTS (Male / Female) Normal Values 2D ECHO LV Diastolic Diameter PLAX 4.8 cm 4.2 - 5.9 / 3.9 - 5.3 cm LV Systolic Diameter PLAX 2.6 cm IVS Diastolic Thickness 0.6 cm 0.6 - 1.0 / 0.6 - 0.9 cm IVS Systolic Thickness 1.2 cm LVPW Diastolic Thickness 0.9 cm 0.6 - 1.0 / 0.6 - 0.9 cm LVPW Systolic Thickness 1.6 cm LVOT Diameter 2.0 cm LV Ejection Fraction 2D Teich 77.9 % LV Ejection Fraction MOD 2C 77.7 % LV Ejection Fraction 2C AL 77.8 % LA Diameter 4.8 cm LA Width 4.3 cm LA Height 5.5 cm RA Width 2.9 cm RA Height 3.8 cm Aorta at Sinotubular Diameter 2.0 cm IVC Diameter 1.5 cm M-MODE Aortic Annulus Diameter 2.7 cm LA Ao Ratio MM 1.9 DOPPLER AV Peak Velocity 194.0 cm/s LVOT Peak Velocity 111.0 cm/s AV Area Cont Eq vti 1.9 cm squared AV Area Cont Eq pk 1.8 cm squared MV Peak Velocity 249.0 cm/s MV Area PHT 2.0 cm squared Mitral E to A Ratio 1.7 MV E' Velocity 110.5 cm/s Mitral E to MV E' Ratio 27.4 Mitral E to LV E' Lateral Ratio 30.1 Mitral E to LV E' Septal Ratio 25.4 TR Peak Velocity 292.0 cm/s TR Peak Gradient 34.1 mmHg Right Atrial Pressure 5.0 mmHg Pulmonary Artery Systolic Pressu 39.1 mmHg PV Peak Velocity 98.0 cm/s RV Acceleration Time 0.1 s RV Ejection Time 0.4 s RV AcT/ET 0.3 FINDINGS Left Ventricle Normal left ventricular size, systolic function and wall thickness, with no regional wall motion abnormalities. Left ventricular ejection fraction is estimated at 70%. Right Ventricle Normal right ventricular size and systolic function, RVSP 39.1 mmHg. Right Atrium Normal right atrial size. Left Atrium Dilated left atrium Mitral Valve Moderately thickened mitral valve. Moderate mitral annular calcification. Mild mitral stenosis (mean gradient 8.6mmHg) and mild mitral regurgitation Aortic Valve Porcine aortic valve (AVR) with normal function Tricuspid Valve Thickened tricuspid valve. [id number] tricuspid valve regurgitation. Moderately elevated tricuspid gradient (43 mmHg). Pulmonary systolic pressure moderately elevated at 48mmHg. Pulmonic Valve Structurally normal pulmonic valve. Mild pulmonary valve regurgitation. Pericardium No pericardial effusion. Aorta Normal size aortic root and proximal ascending aorta. IVC Normal IVC dimension with >50% respiratory change of the inferior vena cava. CONCLUSIONS Normal LV systolic function. LVEF estimated normal at 70%. Moderately thickened mitral valve with mild mitral stenosis, mean gradient across mitral valve 8.6 mmHg. Mild mitral regurgitation Porcine aortic valve (AVR) with normal function. Mild to moderate tricuspid regurgitation with a moderately elevated pulmonary pressures (48 mmHg). Blanche Nguyen MD (Electronically Signed) Final Date: 08 July 2023 16:11 S
== END 2023-07-07 10:01 | disposition home or self-care (01) ==
LOC: RAD 10:00
PROVIDERS: PCP Nurse Practitioner; Visit Provider Nurse Practitioner Family
DX: I10 Essential (primary) hypertension (principal); I35.0 Nonrheumatic aortic (valve) stenosis; I50.9 Heart failure, unspecified; I07.1 Rheumatic tricuspid insufficiency
CPT/HCPCS: 93306

== ENCOUNTER → 2023-07-08 13:51 | Outpatient (BNVA) | payer MEDICARE, MEDICAID, SELFPAY | PROVIDERS: PCP Family Medicine; Visit Provider Nurse Practitioner Family | DX: I50.9 Heart failure, unspecified (principal); R06.02 Shortness of breath; I10 Essential (primary) hypertension; C25.2 Malignant neoplasm of tail of pancreas; E11.9 Type 2 diabetes mellitus without complications | CPT/HCPCS: 80053; 81003; 82607; 82728; 82746; 83550; 83880; 83921; 84238; 85025; 86301 ==

== ENCOUNTER → 2023-07-09 12:31 | Outpatient (BNVA) | payer MEDICARE, MEDICAID, SELFPAY | PROVIDERS: PCP Family Medicine; Visit Provider Podiatrist Foot & Ankle Surgery | DX: M20.41 Other hammer toe(s) (acquired), right foot (principal); M20.42 Other hammer toe(s) (acquired), left foot; M21.41 Flat foot [pes planus] (acquired), right foot; M21.42 Flat foot [pes planus] (acquired), left foot; E11.42 Type 2 diabetes mellitus with diabetic polyneuropathy; L60.3 Nail dystrophy; L84 Corns and callosities; Z79.4 Long term (current) use of insulin | CPT/HCPCS: 11055; 11721 ==

== ENCOUNTER 2023-07-15 08:56 | Oncology outpatient (recurring) (ONCR) | payer MEDICARE, MEDICAID, SELFPAY ==
[2023-07-15 09:18] VITALS: BP 166/73; PULSE 71; RESP 16; TEMP 36.5; O2SAT 98
[2023-07-15 09:39] LABS: Basophils # 0.1 10^3/uL (0.0-0.1); Basophils % 1.3 %; Eosinophils # 0.3 10^3/uL (0.0-0.8); Hematocrit 33.9 % (36-47); Lymphocytes # 2.6 10^3/uL (0.8-4.8); Lymphocytes % 28.4 %; Mean Corpuscular HGB Conc 32.2 g/dL (30-55); Mean Corpuscular Hemoglobin 31.3 pg (27-33); Mean Corpuscular Volume 97.4 fl (85-98); Mean Platelet Volume 8.9 fL (7.4-10.4); Monocytes % 11.4 %; Neutrophils # 5.04 10^3/uL (1.8-7.7); Neutrophils % 55.4 %; Nucleated Red Blood Cells % 0 %; Platelet Count 494 10^3/cmm (157-399); Red Blood Count 3.48 10^6/uL (3.85-5.65); Red Cell Distribution Width 14.4 % (12.1-15.1)
[2023-07-15 10:04] LABS: Alanine Aminotransferase 16 U/L (0-33); Alkaline Phosphatase 76 U/L (35-105); Anion Gap 15.3 (5-19); Aspartate Amino Transferase 24 U/L (0-32); Blood Urea Nitrogen 17 mg/dL (8-23); Calcium 9.6 mg/dL (8.5-10.5); Cancer Antigen 19 9 307.5 U/mL (0-35); Carbon Dioxide 21 mmol/L (22-29); Chloride 101 mmol/L (98-107); Globulin 2.9 g/dL (1.3-4.6); Glucose 163 mg/dL (65-115); Osmolality Calculated 281 mOsm/kg (285-295); Potassium 4.3 mmol/L (3.5-5.1); Sodium 133 mmol/L (136-145); Total Bilirubin 0.4 mg/dL (0.15-1.2); Total Protein 6.9 g/dL (6.6-8.7)
== END 2023-08-10 23:59 | disposition home or self-care (01) ==
LOC: ONCMED 08:57
PROVIDERS: Internal Medicine; PCP Family Medicine; Visit Provider Internal Medicine Medical Oncology
DX: Z51.11 Encounter for antineoplastic chemotherapy (principal); C25.2 Malignant neoplasm of tail of pancreas; D70.1 Agranulocytosis secondary to cancer chemotherapy; R97.1 Elevated cancer antigen 125 [CA 125]; Z79.899 Other long term (current) drug therapy
CPT/HCPCS: 80053; 85025; 86301; 99214; J1642

== ENCOUNTER 2023-09-08 14:26 | Oncology outpatient (recurring) (ONCR) | payer MEDICARE, MEDICAID, SELFPAY ==
[2023-09-08 14:38] VITALS: BP 169/79; PULSE 80; RESP 18; TEMP 36.3; O2SAT 98
== END 2023-09-10 23:59 | disposition home or self-care (01) ==
PROVIDERS: PCP Family Medicine; Visit Provider Internal Medicine Medical Oncology
DX: Z45.2 Encounter for adjustment and management of vascular access device (principal)
CPT/HCPCS: 96523; J1642

== ENCOUNTER → 2023-10-01 09:11 | Outpatient (BNVA) | payer MEDICARE, MEDICAID, SELFPAY | PROVIDERS: PCP Family Medicine; Visit Provider Nurse Practitioner Family | DX: I10 Essential (primary) hypertension (principal); C25.2 Malignant neoplasm of tail of pancreas; D35.00 Benign neoplasm of unspecified adrenal gland; I25.10 Atherosclerotic heart disease of native coronary artery without angina pectoris; I50.9 Heart failure, unspecified; E11.649 Type 2 diabetes mellitus with hypoglycemia without coma; E78.2 Mixed hyperlipidemia; E11.9 Type 2 diabetes mellitus without complications | CPT/HCPCS: 80053; 85025 ==

== ENCOUNTER 2023-10-09 08:15 | Oncology outpatient (recurring) (ONCR) | payer MEDICARE, MEDICAID, SELFPAY ==
[2023-10-09 08:10] LABS: Basophils # 0.1 10^3/uL (0.0-0.1); Basophils % 0.9 %; Eosinophils # 0.4 10^3/uL (0.0-0.8); Eosinophils % 3.6 %; Hematocrit 37.6 % (36-47); Lymphocytes # 3.8 10^3/uL (0.8-4.8); Lymphocytes % 38.1 %; Mean Corpuscular HGB Conc 31.6 g/dL (30-55); Mean Corpuscular Hemoglobin 28.9 pg (27-33); Mean Corpuscular Volume 91.3 fl (85-98); Mean Platelet Volume 9.6 fL (7.4-10.4); Monocytes # 0.8 10^3/uL (0.2-0.9); Monocytes % 8.3 %; Neutrophils # 4.86 10^3/uL (1.8-7.7); Neutrophils % 48.9 %; Nucleated Red Blood Cells % 0 %; Platelet Count 379 10^3/cmm (157-399); Red Blood Count 4.12 10^6/uL (3.85-5.65); Red Cell Distribution Width 14.5 % (12.1-15.1); White Blood Count 9.95 10^3/uL (3.29-11.43)
[2023-10-09 08:38] LABS: Alanine Aminotransferase 14 U/L (0-33); Albumin Level 3.9 g/dL (3.5-5.2); Alkaline Phosphatase 92 U/L (35-105); Anion Gap 13.3 (5-19); Aspartate Amino Transferase 21 U/L (0-32); Blood Urea Nitrogen 9 mg/dL (8-23); Calcium 9.9 mg/dL (8.5-10.5); Carbon Dioxide 25 mmol/L (22-29); Chloride 103 mmol/L (98-107); Creatinine Clr Calc Pharmacy 57.4584; Globulin 3.1 g/dL (1.3-4.6); Glucose 154 mg/dL (65-115); Osmolality Calculated 286 mOsm/kg (285-295); Potassium 4.3 mmol/L (3.5-5.1); Sodium 137 mmol/L (136-145); Total Bilirubin 0.2 mg/dL (0.15-1.2)
== END 2023-10-09 23:59 | disposition home or self-care (01) ==
PROVIDERS: PCP Family Medicine; Visit Provider Internal Medicine Medical Oncology
DX: Z53.9 Procedure and treatment not carried out, unspecified reason (principal); C25.2 Malignant neoplasm of tail of pancreas; F41.9 Anxiety disorder, unspecified; F32.A Depression, unspecified; E11.649 Type 2 diabetes mellitus with hypoglycemia without coma; I25.10 Atherosclerotic heart disease of native coronary artery without angina pectoris; E78.2 Mixed hyperlipidemia; Z79.4 Long term (current) use of insulin; D35.00 Benign neoplasm of unspecified adrenal gland
CPT/HCPCS: 80053; 85025; 96523; 99214; 99215; J1642

== ENCOUNTER 2023-10-27 14:45 | Oncology outpatient (recurring) (ONCR) | payer MEDICARE, MEDICAID, SELFPAY ==
[2023-10-13 13:50] VITALS: BP 160/80; PULSE 75; RESP 16; TEMP 36.5; O2SAT 98
[2023-10-13] MEDS: sodium chloride 0.9% 250 ML 75 ML IV (14:15)
[2023-10-13] MEDS: ondansetron 2 mg/ML SDV 2 mL 8 MG IVP (14:15)
[2023-10-13] MEDS: LEUCOVORIN 34 MG IVP (14:21)
[2023-10-13] MEDS: fluorouraciL 50 mg/ml MDV 100 mL 750 MG IVP (14:21)
[2023-10-13 14:31] VITALS: BP 125/76; PULSE 60; RESP 18; TEMP 36.5; O2SAT 97
[2023-10-14] MEDS: sodium chloride 0.9% 250 ML 75 ML IV (15:03)
[2023-10-14] MEDS: ondansetron 2 mg/ML SDV 2 mL 8 MG IVP (15:04)
[2023-10-14] MEDS: fluorouraciL 50 mg/ml MDV 100 mL 750 MG IVP (15:12)
[2023-10-14] MEDS: LEUCOVORIN 34 MG IVP (15:12)
[2023-10-14 15:27] VITALS: BP 131/72; PULSE 63; O2SAT 95
[2023-10-15] MEDS: sodium chloride 0.9% 250 ML 75 ML IV (14:04)
[2023-10-15] MEDS: ondansetron 2 mg/ML SDV 2 mL 8 MG IVP (14:05)
[2023-10-15 14:15] VITALS: BP 140/78; PULSE 78; RESP 18; TEMP 36.6; O2SAT 98
[2023-10-15] MEDS: fluorouraciL 50 mg/ml MDV 100 mL 750 MG IVP (14:34)
[2023-10-15] MEDS: LEUCOVORIN 34 MG IVP (14:35)
[2023-10-15 14:40] VITALS: BP 124/78; PULSE 78; RESP 18; TEMP 36.6; O2SAT 98
[2023-10-16 14:04] VITALS: BP 148/77; PULSE 76; RESP 18; TEMP 36.7; O2SAT 98
[2023-10-16 14:39] VITALS: BP 124/78; PULSE 78; RESP 18; TEMP 36.6; O2SAT 98
[2023-10-16] MEDS: ondansetron 2 mg/ML SDV 2 mL 8 MG IVP (14:39)
[2023-10-16] MEDS: LEUCOVORIN 34 MG IVP (15:09)
[2023-10-16] MEDS: fluorouraciL 50 mg/ml MDV 100 mL 750 MG IVP (15:09)
[2023-10-17 10:28] VITALS: BP 147/82; PULSE 69; RESP 17; TEMP 36.7; O2SAT 97
[2023-10-17 10:48] VITALS: BP 122/67; PULSE 61; O2SAT 96
[2023-10-17] MEDS: ondansetron 2 mg/ML SDV 2 mL 8 MG IVP (10:48)
[2023-10-17] MEDS: sodium chloride 0.9% 250 ML 500 ML IV (10:48)
[2023-10-17] MEDS: LEUCOVORIN 34 MG IVP (10:55)
[2023-10-17] MEDS: fluorouraciL 50 mg/ml MDV 100 mL 750 MG IVP (10:55)
[2023-10-17 11:07] LABS: Alanine Aminotransferase 14 U/L (0-33); Albumin Level 3.9 g/dL (3.5-5.2); Alkaline Phosphatase 82 U/L (35-105); Anion Gap 15.4 (5-19); Aspartate Amino Transferase 21 U/L (0-32); Blood Urea Nitrogen 11 mg/dL (8-23); Calcium 9.3 mg/dL (8.5-10.5); Carbon Dioxide 25 mmol/L (22-29); Chloride 101 mmol/L (98-107); Globulin 2.8 g/dL (1.3-4.6); Glucose 139 mg/dL (65-115); Osmolality Calculated 286 mOsm/kg (285-295); Potassium 4.4 mmol/L (3.5-5.1); Sodium 137 mmol/L (136-145); Total Bilirubin 0.3 mg/dL (0.15-1.2); Total Protein 6.7 g/dL (6.6-8.7)
[2023-10-17 11:59] LABS: Estmated Average Glucose 226; Hemoglobin A1C 9.5 % (4.0-6.0)
[2023-10-19 10:15] LABS: C-Peptide 1.08 ng/mL (0.80-3.85)
[2023-10-27 14:54] LABS: Basophils % 0.5 %; Eosinophils # 0.3 10^3/uL (0.0-0.8); Lymphocytes # 4.8 10^3/uL (0.8-4.8); Lymphocytes % 62.3 %; Mean Corpuscular HGB Conc 32.5 g/dL (30-55); Mean Corpuscular Hemoglobin 29.1 pg (27-33); Mean Corpuscular Volume 89.4 fl (85-98); Mean Platelet Volume 10.7 fL (7.4-10.4); Monocytes # 0.4 10^3/uL (0.2-0.9); Monocytes % 4.7 %; Neutrophils % 28.4 %; Nucleated Red Blood Cells # 0.1 /100WBC; Nucleated Red Blood Cells % 0.6 %; Platelet Count 203 10^3/cmm (157-399); Red Blood Count 3.58 10^6/uL (3.85-5.65); Red Cell Distribution Width 14.7 % (12.1-15.1); White Blood Count 7.74 10^3/uL (3.29-11.43)
[2023-10-27 15:08] LABS: Alanine Aminotransferase 13 U/L (0-33); Albumin Level 3.9 g/dL (3.5-5.2); Alkaline Phosphatase 79 U/L (35-105); Anion Gap 11.9 (5-19); Aspartate Amino Transferase 16 U/L (0-32); Blood Urea Nitrogen 6 mg/dL (8-23); Calcium 9.2 mg/dL (8.5-10.5); Carbon Dioxide 25 mmol/L (22-29); Chloride 100 mmol/L (98-107); Globulin 2.3 g/dL (1.3-4.6); Glucose 178 mg/dL (65-115); Osmolality Calculated 278 mOsm/kg (285-295); Potassium 3.9 mmol/L (3.5-5.1); Sodium 133 mmol/L (136-145); Total Bilirubin 0.2 mg/dL (0.15-1.2); Total Protein 6.2 g/dL (6.6-8.7)
== END 2023-11-09 23:59 | disposition home or self-care (01) ==
PROVIDERS: Internal Medicine; Nurse Practitioner Family; PCP Family Medicine; Visit Provider Internal Medicine Medical Oncology
DX: C25.2 Malignant neoplasm of tail of pancreas (principal); Z53.9 Procedure and treatment not carried out, unspecified reason
CPT/HCPCS: 11055; 11721; 36591; 80053; 83036; 84681; 85025; 96375; 96409; 96411; J0640; J1642; J2405; J7050; J9190

== ENCOUNTER → 2023-12-04 14:00 | Outpatient (BNVA) | payer MEDICARE, MEDICAID, SELFPAY | PROVIDERS: PCP Family Medicine; Visit Provider Internal Medicine Cardiovascular Disease | DX: I25.10 Atherosclerotic heart disease of native coronary artery without angina pectoris (principal); Z95.3 Presence of xenogenic heart valve; I10 Essential (primary) hypertension; E78.2 Mixed hyperlipidemia | CPT/HCPCS: 99214 ==

== ENCOUNTER 2023-12-08 10:45 | Oncology outpatient (recurring) (ONCR) | payer MEDICARE, MEDICAID, SELFPAY ==
[2023-11-10 12:57] LABS: Basophils # 0.1 10^3/uL (0.0-0.1); Basophils % 1.4 %; Eosinophils # 0.1 10^3/uL (0.0-0.8); Eosinophils % 1.1 %; Hematocrit 33.4 % (36-47); Lymphocytes # 4.3 10^3/uL (0.8-4.8); Lymphocytes % 66.5 %; Mean Corpuscular Hemoglobin 29.2 pg (27-33); Mean Corpuscular Volume 91.3 fl (85-98); Mean Platelet Volume 9.6 fL (7.4-10.4); Monocytes # 0.9 10^3/uL (0.2-0.9); Monocytes % 13.6 %; Neutrophils # 1.12 10^3/uL (1.8-7.7); Neutrophils % 17.2 %; Nucleated Red Blood Cells % 0 %; Platelet Count 386 10^3/cmm (157-399); Red Blood Count 3.66 10^6/uL (3.85-5.65); Red Cell Distribution Width 17.8 % (12.1-15.1); White Blood Count 6.47 10^3/uL (3.29-11.43)
[2023-11-10 13:19] LABS: Alanine Aminotransferase 14 U/L (0-33); Alkaline Phosphatase 95 U/L (35-105); Anion Gap 13.4 (5-19); Aspartate Amino Transferase 21 U/L (0-32); Blood Urea Nitrogen 7 mg/dL (8-23); Calcium 9.5 mg/dL (8.5-10.5); Carbon Dioxide 26 mmol/L (22-29); Chloride 106 mmol/L (98-107); Globulin 2.8 g/dL (1.3-4.6); Glucose 142 mg/dL (65-115); Osmolality Calculated 292 mOsm/kg (285-295); Potassium 4.4 mmol/L (3.5-5.1); Sodium 141 mmol/L (136-145); Total Bilirubin 0.3 mg/dL (0.15-1.2); Total Protein 6.8 g/dL (6.6-8.7)
[2023-11-10 13:20] LABS: Creatinine Clr Calc Pharmacy 57.6178
[2023-11-17 09:31] LABS: Basophils # 0.1 10^3/uL (0.0-0.1); Basophils % 1.1 %; Eosinophils # 0.1 10^3/uL (0.0-0.8); Eosinophils % 1.4 %; Hematocrit 33.6 % (36-47); Lymphocytes # 3.2 10^3/uL (0.8-4.8); Lymphocytes % 31.4 %; Mean Corpuscular HGB Conc 32.4 g/dL (30-55); Mean Corpuscular Volume 92.6 fl (85-98); Monocytes % 10.2 %; Neutrophils # 5.66 10^3/uL (1.8-7.7); Neutrophils % 55.7 %; Nucleated Red Blood Cells % 0 %; Platelet Count 385 10^3/cmm (157-399); Red Blood Count 3.63 10^6/uL (3.85-5.65); White Blood Count 10.14 10^3/uL (3.29-11.43)
[2023-11-17 09:48] LABS: Alanine Aminotransferase 16 U/L (0-33); Albumin Level 3.9 g/dL (3.5-5.2); Alkaline Phosphatase 90 U/L (35-105); Anion Gap 11.2 (5-19); Aspartate Amino Transferase 21 U/L (0-32); Blood Urea Nitrogen 7 mg/dL (8-23); Calcium 9.3 mg/dL (8.5-10.5); Carbon Dioxide 25 mmol/L (22-29); Chloride 105 mmol/L (98-107); Creatinine Clr Calc Pharmacy 57.6178; Globulin 2.7 g/dL (1.3-4.6); Glucose 150 mg/dL (65-115); Osmolality Calculated 285 mOsm/kg (285-295); Potassium 4.2 mmol/L (3.5-5.1); Sodium 137 mmol/L (136-145); Total Bilirubin 0.4 mg/dL (0.15-1.2); Total Protein 6.6 g/dL (6.6-8.7)
[2023-11-17 11:04] LABS: Reticulocyte % 2.1 % (0.5-2.0)
[2023-11-17 11:36] LABS: Ferritin 73 ng/mL (15-150); Iron 83 ug/dL (37-145); Percent Saturation 26.6 % (20-50); Thyroid Stimulating Hormone 1.42 uIU/mL (0.27-4.20); Total Iron Binding Capacity 312 mcg/dl; Unsaturated Iron Binding 229 ug/dL (112-347); Vitamin B12 653 pg/mL (232-1245)
[2023-11-17] MEDS: sodium chloride 0.9% 250 ML 75 ML IV (12:16)
[2023-11-17] MEDS: ondansetron 2 mg/ML SDV 2 mL 8 MG IVP (12:19)
[2023-11-17] MEDS: LEUCOVORIN 34 MG IVP (12:44)
[2023-11-17] MEDS: fluorouraciL 50 mg/ml MDV 100 mL 750 MG IVP (12:45)
[2023-11-17 12:53] VITALS: BP 134/82; PULSE 61; RESP 16; O2SAT 98
[2023-11-18] MEDS: ondansetron 2 mg/ML SDV 2 mL 8 MG IVP (15:09)
[2023-11-18] MEDS: sodium chloride 0.9% 250 ML 75 ML IV (15:09)
[2023-11-18] MEDS: LEUCOVORIN 34 MG IVP (15:14)
[2023-11-18] MEDS: fluorouraciL 50 mg/ml MDV 100 mL 750 MG IVP (15:15)
[2023-11-18 15:29] VITALS: BP 114/61; PULSE 53; RESP 16; O2SAT 99
[2023-11-19] MEDS: sodium chloride 0.9% 250 ML 75 ML IV (15:26)
[2023-11-19] MEDS: ondansetron 2 mg/ML SDV 2 mL 8 MG IVP (15:27)
[2023-11-19] MEDS: LEUCOVORIN 34 MG IVP (15:33)
[2023-11-19] MEDS: fluorouraciL 50 mg/ml MDV 100 mL 750 MG IVP (15:38)
[2023-11-19 15:49] VITALS: BP 146/73; PULSE 55; O2SAT 98
[2023-11-20 14:34] VITALS: BP 117/71; PULSE 57; RESP 16; TEMP 36.8; O2SAT 95
[2023-11-20] MEDS: sodium chloride 0.9% 250 ML 100 ML IV (14:40)
[2023-11-20] MEDS: ondansetron 2 mg/ML SDV 2 mL 8 MG IVP (14:42)
[2023-11-20] MEDS: LEUCOVORIN 34 MG IVP (14:48)
[2023-11-20] MEDS: fluorouraciL 50 mg/ml MDV 100 mL 750 MG IVP (14:54)
[2023-11-20 15:04] VITALS: BP 127/69; PULSE 58; RESP 16; TEMP 36.2; O2SAT 98
[2023-11-21] MEDS: ondansetron 2 mg/ML SDV 2 mL 8 MG IVP (10:10)
[2023-11-21] MEDS: sodium chloride 0.9% 250 ML 75 ML IV (10:10)
[2023-11-21] MEDS: LEUCOVORIN 34 MG IVP (10:28)
[2023-11-21] MEDS: fluorouraciL 50 mg/ml MDV 100 mL 750 MG IVP (10:30)
[2023-12-08 10:59] LABS: Hematocrit 30.6 % (36-47); Mean Corpuscular Hemoglobin 31.4 pg (27-33); Mean Platelet Volume 9.1 fL (7.4-10.4); Platelet Count 351 10^3/cmm (157-399); Red Blood Count 3.22 10^6/uL (3.85-5.65); Red Cell Distribution Width 18.6 % (12.1-15.1); White Blood Count 4.93 10^3/uL (3.29-11.43)
[2023-12-08 11:29] LABS: Alanine Aminotransferase 12 U/L (0-33); Alkaline Phosphatase 95 U/L (35-105); Anion Gap 13.4 (5-19); Aspartate Amino Transferase 18 U/L (0-32); Blood Urea Nitrogen 10 mg/dL (8-23); Calcium 8.8 mg/dL (8.5-10.5); Cancer Antigen 19 9 447.8 U/mL (0-35); Carbon Dioxide 24 mmol/L (22-29); Chloride 105 mmol/L (98-107); Creatinine Clr Calc Pharmacy 57.9822; Globulin 2.4 g/dL (1.3-4.6); Glucose 195 mg/dL (65-115); Osmolality Calculated 290 mOsm/kg (285-295); Potassium 4.4 mmol/L (3.5-5.1); Sodium 138 mmol/L (136-145); Total Bilirubin 0.3 mg/dL (0.15-1.2); Total Protein 6.4 g/dL (6.6-8.7)
[2023-12-08 11:47] LABS: Slide Review Slide Review Perform
[2023-12-08 11:49] LABS: Absolute Eosinophils 0.2 10^3/cmm (0.0-0.7); Absolute Segmented Neutrophil 0.6 10/cmm (1.6-7.1); Eosinophils 4 %; Lymphocytes 70 %; Lymphocytes Absolute 3.7 10^3/cmm (1.2-3.4); Monocytes Absolute 0.3 10^3/cmm (0.1-0.6); Segmented Neutrophils 12 %; Total Cells Counted 100 (0-100)
[2023-12-08 11:50] LABS: Platelet Estimate Normal (Normal)
[2023-12-08 11:51] LABS: Absolute Neutrophil 0.6 10^3/cmm (1.4-6.5); Poikilocytosis 2+
[2023-12-10 19:53] LABS: Copper Level 93 mcg/dL (70-175)
== END 2023-12-09 23:59 | disposition home or self-care (01) ==
PROVIDERS: Internal Medicine; Nurse Practitioner Family; PCP Family Medicine; Visit Provider Internal Medicine Medical Oncology
DX: Z53.9 Procedure and treatment not carried out, unspecified reason; C25.2 Malignant neoplasm of tail of pancreas; E11.9 Type 2 diabetes mellitus without complications
CPT/HCPCS: 36591; 80053; 82525; 82607; 82728; 83540; 83550; 84443; 85007; 85025; 85045; 86301; 96367; 96375; 96409; 96411; 96413; 99214; 99215; J0640; J1642; J2405; J7050; J9190

== ENCOUNTER 2024-01-06 10:30 | Oncology outpatient (recurring) (ONCR) | payer MEDICARE, MEDICAID, SELFPAY ==
[2023-12-15 08:35] LABS: Basophils # 0.1 10^3/uL (0.0-0.1); Basophils % 1.6 %; Eosinophils # 0.2 10^3/uL (0.0-0.8); Eosinophils % 3.4 %; Hematocrit 31.2 % (36-47); Lymphocytes # 3.5 10^3/uL (0.8-4.8); Lymphocytes % 51.8 %; Mean Corpuscular HGB Conc 33.3 g/dL (30-55); Mean Corpuscular Hemoglobin 31.9 pg (27-33); Mean Corpuscular Volume 95.7 fl (85-98); Mean Platelet Volume 9.4 fL (7.4-10.4); Monocytes # 1.2 10^3/uL (0.2-0.9); Monocytes % 17.3 %; Neutrophils % 25.5 %; Nucleated Red Blood Cells % 0.4 %; Platelet Count 339 10^3/cmm (157-399); Red Blood Count 3.26 10^6/uL (3.85-5.65); Red Cell Distribution Width 19.3 % (12.1-15.1)
[2023-12-15 08:45] LABS: Alanine Aminotransferase 14 U/L (0-33); Albumin Level 3.8 g/dL (3.5-5.2); Alkaline Phosphatase 96 U/L (35-105); Anion Gap 13.4 (5-19); Aspartate Amino Transferase 18 U/L (0-32); Blood Urea Nitrogen 9 mg/dL (8-23); Calcium 9.3 mg/dL (8.5-10.5); Carbon Dioxide 25 mmol/L (22-29); Chloride 102 mmol/L (98-107); Globulin 2.7 g/dL (1.3-4.6); Glucose 203 mg/dL (65-115); Osmolality Calculated 286 mOsm/kg (285-295); Potassium 4.4 mmol/L (3.5-5.1); Sodium 136 mmol/L (136-145); Total Bilirubin 0.4 mg/dL (0.15-1.2); Total Protein 6.5 g/dL (6.6-8.7)
[2023-12-15 08:48] LABS: Creatinine Clr Calc Pharmacy 58.0276
[2023-12-15] MEDS: sodium chloride 0.9% 250 ML 75 ML IV (09:26)
[2023-12-15] MEDS: ondansetron 2 mg/ML SDV 2 mL 8 MG IVP (09:27)
[2023-12-15] MEDS: LEUCOVORIN 34 MG IVP (09:49)
[2023-12-15] MEDS: fluorouraciL 50 mg/ml MDV 100 mL 750 MG IVP (09:53)
[2023-12-15 10:01] VITALS: BP 128/72; PULSE 54; RESP 16; TEMP 36.6; O2SAT 99
[2023-12-16] MEDS: ondansetron 2 mg/ML SDV 2 mL 8 MG IVP (15:02)
[2023-12-16] MEDS: sodium chloride 0.9% 250 ML 75 ML IV (15:02)
[2023-12-16] MEDS: LEUCOVORIN 34 MG IVP (15:17)
[2023-12-16] MEDS: fluorouraciL 50 mg/ml MDV 100 mL 750 MG IVP (15:19)
[2023-12-17 12:35] VITALS: BP 117/69; PULSE 57; RESP 16; TEMP 36.8; O2SAT 97
[2023-12-17] MEDS: ondansetron 2 mg/ML SDV 2 mL 8 MG IVP (12:38)
[2023-12-17] MEDS: sodium chloride 0.9% 250 ML 75 ML IV (12:38)
[2023-12-17] MEDS: LEUCOVORIN 34 MG IVP (13:22)
[2023-12-17] MEDS: fluorouraciL 50 mg/ml MDV 100 mL 750 MG IVP (13:27)
[2023-12-17 13:40] VITALS: BP 134/75; PULSE 57; RESP 16; TEMP 36.8; O2SAT 98
[2023-12-18 13:35] VITALS: BP 132/78; PULSE 64; RESP 17; TEMP 36.6; O2SAT 98
[2023-12-18] MEDS: ondansetron 2 mg/ML SDV 2 mL 8 MG IVP (14:52)
[2023-12-18] MEDS: LEUCOVORIN 34 MG IVP (15:13)
[2023-12-18] MEDS: sodium chloride 0.9% 250 ML 75 ML IV (15:15)
[2023-12-18] MEDS: fluorouraciL 50 mg/ml MDV 100 mL 750 MG IVP (15:20)
[2023-12-18 15:42] VITALS: BP 122/74; PULSE 78; RESP 18; TEMP 36.6; O2SAT 98
[2023-12-19 10:05] VITALS: BP 132/74; PULSE 50; RESP 16; TEMP 36.7; O2SAT 95
[2023-12-19] MEDS: sodium chloride 0.9% 250 ML 75 ML IV (10:08)
[2023-12-19] MEDS: ondansetron 2 mg/ML SDV 2 mL 8 MG IVP (10:10)
[2023-12-19] MEDS: LEUCOVORIN 34 MG IVP (10:39)
[2023-12-19] MEDS: fluorouraciL 50 mg/ml MDV 100 mL 750 MG IVP (10:44)
[2023-12-19 10:50] VITALS: BP 137/75; PULSE 57; RESP 16; TEMP 36.6; O2SAT 96
[2023-12-23 10:30] VITALS: BP 114/78; PULSE 78; RESP 18; TEMP 36.6; O2SAT 98
[2023-12-23 10:51] LABS: Basophils % 0.5 %; Eosinophils # 0.1 10^3/uL (0.0-0.8); Eosinophils % 1.3 %; Hematocrit 32.3 % (36-47); Lymphocytes # 2.4 10^3/uL (0.8-4.8); Lymphocytes % 38.7 %; Mean Corpuscular HGB Conc 32.8 g/dL (30-55); Mean Corpuscular Hemoglobin 31.5 pg (27-33); Mean Corpuscular Volume 95.8 fl (85-98); Mean Platelet Volume 9.7 fL (7.4-10.4); Monocytes # 0.3 10^3/uL (0.2-0.9); Neutrophils # 3.45 10^3/uL (1.8-7.7); Neutrophils % 55.2 %; Nucleated Red Blood Cells % 0.5 %; Platelet Count 249 10^3/cmm (157-399); Red Blood Count 3.37 10^6/uL (3.85-5.65); Red Cell Distribution Width 17.5 % (12.1-15.1); White Blood Count 6.25 10^3/uL (3.29-11.43)
[2023-12-23 11:08] LABS: Alanine Aminotransferase 10 U/L (0-33); Albumin Level 3.9 g/dL (3.5-5.2); Alkaline Phosphatase 85 U/L (35-105); Anion Gap 12.3 (5-19); Aspartate Amino Transferase 15 U/L (0-32); Blood Urea Nitrogen 10 mg/dL (8-23); Carbon Dioxide 23 mmol/L (22-29); Chloride 103 mmol/L (98-107); Creatinine Clr Calc Pharmacy 58.0276; Globulin 2.7 g/dL (1.3-4.6); Glucose 172 mg/dL (65-115); Osmolality Calculated 281 mOsm/kg (285-295); Potassium 4.3 mmol/L (3.5-5.1); Sodium 134 mmol/L (136-145); Total Bilirubin 0.6 mg/dL (0.15-1.2); Total Protein 6.6 g/dL (6.6-8.7)
[2023-12-31 09:10] LABS: Basophils % 0.7 %; Eosinophils # 0.1 10^3/uL (0.0-0.8); Eosinophils % 3.3 %; Hematocrit 28.6 % (36-47); Lymphocytes # 2.2 10^3/uL (0.8-4.8); Lymphocytes % 52.5 %; Mean Corpuscular HGB Conc 33.2 g/dL (30-55); Mean Corpuscular Hemoglobin 32.2 pg (27-33); Mean Corpuscular Volume 96.9 fl (85-98); Mean Platelet Volume 9.8 fL (7.4-10.4); Monocytes # 0.3 10^3/uL (0.2-0.9); Neutrophils # 1.55 10^3/uL (1.8-7.7); Neutrophils % 36.3 %; Nucleated Red Blood Cells % 0.7 %; Platelet Count 222 10^3/cmm (157-399); Red Blood Count 2.95 10^6/uL (3.85-5.65); Red Cell Distribution Width 17.4 % (12.1-15.1); White Blood Count 4.27 10^3/uL (3.29-11.43)
[2023-12-31 09:31] LABS: Alanine Aminotransferase 12 U/L (0-33); Albumin Level 3.8 g/dL (3.5-5.2); Alkaline Phosphatase 82 U/L (35-105); Anion Gap 13.6 (5-19); Aspartate Amino Transferase 20 U/L (0-32); Blood Urea Nitrogen 10 mg/dL (8-23); Calcium 9.5 mg/dL (8.5-10.5); Carbon Dioxide 24 mmol/L (22-29); Chloride 105 mmol/L (98-107); Creatinine Clr Calc Pharmacy 58.0276; Globulin 2.7 g/dL (1.3-4.6); Glucose 156 mg/dL (65-115); Osmolality Calculated 288 mOsm/kg (285-295); Potassium 4.6 mmol/L (3.5-5.1); Sodium 138 mmol/L (136-145); Total Bilirubin 0.6 mg/dL (0.15-1.2); Total Protein 6.5 g/dL (6.6-8.7)
[2024-01-06 10:27] LABS: Basophils # 0.1 10^3/uL (0.0-0.1); Basophils % 1.3 %; Eosinophils # 0.1 10^3/uL (0.0-0.8); Eosinophils % 1.6 %; Hematocrit 29.6 % (36-47); Lymphocytes # 2.8 10^3/uL (0.8-4.8); Lymphocytes % 75.3 %; Mean Corpuscular HGB Conc 33.1 g/dL (30-55); Mean Corpuscular Volume 99.7 fl (85-98); Mean Platelet Volume 9.3 fL (7.4-10.4); Monocytes # 0.6 10^3/uL (0.2-0.9); Monocytes % 14.8 %; Nucleated Red Blood Cells % 0.8 %; Platelet Count 361 10^3/cmm (157-399); Red Blood Count 2.97 10^6/uL (3.85-5.65); Red Cell Distribution Width 18.5 % (12.1-15.1); White Blood Count 3.72 10^3/uL (3.29-11.43)
[2024-01-06 10:30] LABS: Neutrophils # 0.26 10^3/uL (1.8-7.7)
[2024-01-06 10:51] LABS: Alanine Aminotransferase 13 U/L (0-33); Albumin Level 4.1 g/dL (3.5-5.2); Alkaline Phosphatase 93 U/L (35-105); Anion Gap 12.4 (5-19); Aspartate Amino Transferase 20 U/L (0-32); Blood Urea Nitrogen 9 mg/dL (8-23); Calcium 8.8 mg/dL (8.5-10.5); Carbon Dioxide 25 mmol/L (22-29); Chloride 103 mmol/L (98-107); Creatinine Clr Calc Pharmacy 58.0276; Globulin 2.5 g/dL (1.3-4.6); Glucose 203 mg/dL (65-115); Osmolality Calculated 286 mOsm/kg (285-295); Potassium 4.4 mmol/L (3.5-5.1); Sodium 136 mmol/L (136-145); Total Bilirubin 0.3 mg/dL (0.15-1.2); Total Protein 6.6 g/dL (6.6-8.7)
== END 2024-01-09 23:59 | disposition home or self-care (01) ==
PROVIDERS: Nurse Practitioner Family; PCP Family Medicine; Visit Provider Internal Medicine Medical Oncology
DX: C25.2 Malignant neoplasm of tail of pancreas (principal); Z53.9 Procedure and treatment not carried out, unspecified reason
CPT/HCPCS: 36591; 80053; 85025; 96375; 96409; 96411; 99214; J0640; J2405; J7050; J9190

== ENCOUNTER → 2024-01-08 11:11 | Outpatient (BNVA) | payer MEDICARE, MEDICAID, SELFPAY | PROVIDERS: PCP Family Medicine; Visit Provider Nurse Practitioner Family | DX: L03.115 Cellulitis of right lower limb (principal) | CPT/HCPCS: 73630 ==

== ENCOUNTER 2024-01-08 15:52 | Outpatient (CLI) | payer MEDICARE, MEDICAID, SELFPAY | END 2024-01-08 15:53 | disposition home or self-care (01) | LOC: SPT 15:53 | PROVIDERS: PCP Family Medicine; Visit Provider Podiatrist Foot & Ankle Surgery | DX: Z46.89 Encounter for fitting and adjustment of other specified devices (principal); L97.512 Non-pressure chronic ulcer of other part of right foot with fat layer exposed; L03.115 Cellulitis of right lower limb | CPT/HCPCS: 87070; 87075; 87077; 87186; 87205; 97760; 99213; L4361 ==

== ENCOUNTER → 2024-01-09 10:24 | Outpatient (BNVA) | payer MEDICARE, MEDICAID, SELFPAY | PROVIDERS: PCP Family Medicine; Visit Provider Internal Medicine | DX: E78.2 Mixed hyperlipidemia; E11.649 Type 2 diabetes mellitus with hypoglycemia without coma; I25.10 Atherosclerotic heart disease of native coronary artery without angina pectoris; D35.00 Benign neoplasm of unspecified adrenal gland; L08.9 Local infection of the skin and subcutaneous tissue, unspecified; Z79.4 Long term (current) use of insulin | CPT/HCPCS: 99214 ==

== ENCOUNTER → 2024-01-21 10:15 | Outpatient (BNVA) | payer MEDICARE, MEDICAID, SELFPAY | PROVIDERS: PCP Family Medicine; Visit Provider Thoracic Surgery (Cardiothoracic Vascular Surgery) | DX: E11.52 Type 2 diabetes mellitus with diabetic peripheral angiopathy with gangrene (principal); E11.621 Type 2 diabetes mellitus with foot ulcer; L97.511 Non-pressure chronic ulcer of other part of right foot limited to breakdown of skin | CPT/HCPCS: 97597; A6210 ==

== ENCOUNTER 2024-02-04 09:30 | Oncology outpatient (recurring) (ONCR) | payer MEDICARE, MEDICAID, SELFPAY ==
[2024-01-12 09:47] LABS: Basophils # 0.1 10^3/uL (0.0-0.1); Basophils % 0.9 %; Eosinophils # 0.1 10^3/uL (0.0-0.8); Eosinophils % 0.6 %; Hematocrit 30.4 % (36-47); Lymphocytes # 3.6 10^3/uL (0.8-4.8); Lymphocytes % 29.1 %; Mean Corpuscular HGB Conc 32.9 g/dL (30-55); Mean Corpuscular Hemoglobin 32.4 pg (27-33); Mean Corpuscular Volume 98.4 fl (85-98); Mean Platelet Volume 9.2 fL (7.4-10.4); Monocytes # 1.9 10^3/uL (0.2-0.9); Monocytes % 15.5 %; Neutrophils # 5.86 10^3/uL (1.8-7.7); Neutrophils % 47.5 %; Nucleated Red Blood Cells # 0.1 /100WBC; Nucleated Red Blood Cells % 0.7 %; Platelet Count 402 10^3/cmm (157-399); Red Blood Count 3.09 10^6/uL (3.85-5.65); Red Cell Distribution Width 18.5 % (12.1-15.1); White Blood Count 12.32 10^3/uL (3.29-11.43)
[2024-01-12 10:12] LABS: Alanine Aminotransferase 16 U/L (0-33); Albumin Level 3.8 g/dL (3.5-5.2); Alkaline Phosphatase 88 U/L (35-105); Anion Gap 12.3 (5-19); Aspartate Amino Transferase 23 U/L (0-32); Blood Urea Nitrogen 7 mg/dL (8-23); Carbon Dioxide 24 mmol/L (22-29); Chloride 101 mmol/L (98-107); Globulin 2.9 g/dL (1.3-4.6); Glucose 168 mg/dL (65-115); Osmolality Calculated 278 mOsm/kg (285-295); Potassium 4.3 mmol/L (3.5-5.1); Sodium 133 mmol/L (136-145); Total Bilirubin 0.2 mg/dL (0.15-1.2); Total Protein 6.7 g/dL (6.6-8.7)
[2024-01-12 11:00] LABS: Slide Review Slide Review Perform
[2024-01-12] MEDS: sodium chloride 0.9% 250 ML 75 ML IV (12:17)
[2024-01-12] MEDS: ondansetron 2 mg/ML SDV 2 mL 8 MG IVP (12:20)
[2024-01-12] MEDS: LEUCOVORIN 34 MG IVP (12:49)
[2024-01-12] MEDS: fluorouraciL 50 mg/ml MDV 100 mL 750 MG IVP (12:51)
[2024-01-12 14:00] VITALS: BP 118/64; PULSE 56; RESP 17; TEMP 36.1; O2SAT 98
[2024-01-12 14:23] LABS: Cancer Antigen 19 9 629.4 U/mL (0-35)
[2024-01-13 08:28] VITALS: BP 104/58; PULSE 83; RESP 16; TEMP 36.5; O2SAT 96
[2024-01-13] MEDS: sodium chloride 0.9% 250 ML 75 ML IV (08:46)
[2024-01-13] MEDS: ondansetron 2 mg/ML SDV 2 mL 8 MG IVP (08:47)
[2024-01-13] MEDS: LEUCOVORIN 34 MG IVP (09:21)
[2024-01-13] MEDS: fluorouraciL 50 mg/ml MDV 100 mL 750 MG IVP (09:22)
[2024-01-13 09:54] VITALS: BP 115/78; PULSE 51; RESP 18; TEMP 36.5; O2SAT 96
[2024-01-13 10:00] VITALS: BP 128/78; PULSE 51; RESP 18; TEMP 36.6; O2SAT 96
[2024-01-14 11:14] VITALS: BP 127/55; PULSE 53; RESP 17; TEMP 36.1; O2SAT 99
[2024-01-14] MEDS: sodium chloride 0.9% 250 ML 75 ML IV (11:28)
[2024-01-14] MEDS: ondansetron 2 mg/ML SDV 2 mL 8 MG IVP (11:29)
[2024-01-14] MEDS: LEUCOVORIN 34 MG IVP (11:57)
[2024-01-14] MEDS: fluorouraciL 50 mg/ml MDV 100 mL 750 MG IVP (12:03)
[2024-01-14 12:20] VITALS: BP 110/54; PULSE 54; RESP 17; TEMP 36.4; O2SAT 98
[2024-01-15 10:23] VITALS: BP 118/70; PULSE 49; RESP 17; TEMP 35.7; O2SAT 97
[2024-01-15] MEDS: sodium chloride 0.9% 250 ML 75 ML IV (10:32)
[2024-01-15] MEDS: ondansetron 2 mg/ML SDV 2 mL 8 MG IVP (10:35)
[2024-01-15] MEDS: LEUCOVORIN 34 MG IVP (10:52)
[2024-01-15] MEDS: fluorouraciL 50 mg/ml MDV 100 mL 750 MG IVP (10:53)
[2024-01-15 11:16] VITALS: BP 118/62; PULSE 51; RESP 18; TEMP 36.4; O2SAT 95
[2024-01-16 08:37] VITALS: BP 125/67; PULSE 51; RESP 16; TEMP 36.6; O2SAT 99
[2024-01-16] MEDS: sodium chloride 0.9% 250 ML 75 ML IV (09:06)
[2024-01-16] MEDS: ondansetron 2 mg/ML SDV 2 mL 8 MG IVP (09:09)
[2024-01-16] MEDS: LEUCOVORIN 34 MG IVP (09:31)
[2024-01-16] MEDS: fluorouraciL 50 mg/ml MDV 100 mL 750 MG IVP (09:34)
[2024-01-16 09:50] VITALS: BP 135/67; PULSE 52; RESP 18; TEMP 35.7; O2SAT 96
[2024-01-19 14:19] LABS: Basophils % 0.4 %; Eosinophils % 0.3 %; Lymphocytes # 2.7 10^3/uL (0.8-4.8); Lymphocytes % 30.1 %; Mean Corpuscular HGB Conc 33.3 g/dL (30-55); Mean Corpuscular Hemoglobin 32.5 pg (27-33); Mean Corpuscular Volume 97.4 fl (85-98); Mean Platelet Volume 9.5 fL (7.4-10.4); Monocytes # 0.3 10^3/uL (0.2-0.9); Monocytes % 3.2 %; Neutrophils # 5.85 10^3/uL (1.8-7.7); Neutrophils % 65.6 %; Nucleated Red Blood Cells # 0.1 /100WBC; Nucleated Red Blood Cells % 0.8 %; Platelet Count 284 10^3/cmm (157-399); Red Blood Count 3.08 10^6/uL (3.85-5.65); Red Cell Distribution Width 17.2 % (12.1-15.1); White Blood Count 8.94 10^3/uL (3.29-11.43)
[2024-01-19 14:38] LABS: Alanine Aminotransferase 11 U/L (0-33); Albumin Level 4.1 g/dL (3.5-5.2); Alkaline Phosphatase 76 U/L (35-105); Anion Gap 13.3 (5-19); Aspartate Amino Transferase 18 U/L (0-32); Blood Urea Nitrogen 8 mg/dL (8-23); Calcium 9.5 mg/dL (8.5-10.5); Carbon Dioxide 25 mmol/L (22-29); Chloride 99 mmol/L (98-107); Creatinine Clr Calc Pharmacy 57.6178; Glucose 181 mg/dL (65-115); Osmolality Calculated 279 mOsm/kg (285-295); Potassium 4.3 mmol/L (3.5-5.1); Sodium 133 mmol/L (136-145); Total Bilirubin 0.5 mg/dL (0.15-1.2); Total Protein 7.1 g/dL (6.6-8.7)
[2024-01-28 11:25] LABS: Basophils % 0.4 %; Eosinophils # 0.2 10^3/uL (0.0-0.8); Eosinophils % 4.3 %; Hematocrit 27.7 % (36-47); Lymphocytes # 2.7 10^3/uL (0.8-4.8); Mean Corpuscular HGB Conc 32.9 g/dL (30-55); Mean Corpuscular Hemoglobin 32.4 pg (27-33); Mean Corpuscular Volume 98.6 fl (85-98); Mean Platelet Volume 9.9 fL (7.4-10.4); Monocytes # 0.3 10^3/uL (0.2-0.9); Monocytes % 6.9 %; Neutrophils # 1.64 10^3/uL (1.8-7.7); Neutrophils % 33.4 %; Nucleated Red Blood Cells # 0.1 /100WBC; Platelet Count 284 10^3/cmm (157-399); Red Blood Count 2.81 10^6/uL (3.85-5.65); Red Cell Distribution Width 16.6 % (12.1-15.1); White Blood Count 4.91 10^3/uL (3.29-11.43)
[2024-01-28 11:38] LABS: Alanine Aminotransferase 12 U/L (0-33); Albumin Level 3.9 g/dL (3.5-5.2); Alkaline Phosphatase 82 U/L (35-105); Anion Gap 14.7 (5-19); Aspartate Amino Transferase 20 U/L (0-32); Blood Urea Nitrogen 7 mg/dL (8-23); Calcium 9.3 mg/dL (8.5-10.5); Carbon Dioxide 25 mmol/L (22-29); Chloride 100 mmol/L (98-107); Creatinine Clr Calc Pharmacy 57.6178; Globulin 2.8 g/dL (1.3-4.6); Glucose 173 mg/dL (65-115); Osmolality Calculated 282 mOsm/kg (285-295); Potassium 4.7 mmol/L (3.5-5.1); Sodium 135 mmol/L (136-145); Total Bilirubin 0.3 mg/dL (0.15-1.2); Total Protein 6.7 g/dL (6.6-8.7)
[2024-02-04 10:04] LABS: Basophils # 0.1 10^3/uL (0.0-0.1); Basophils % 1.7 %; Eosinophils # 0.1 10^3/uL (0.0-0.8); Eosinophils % 1.7 %; Hematocrit 29.7 % (36-47); Lymphocytes # 2.3 10^3/uL (0.8-4.8); Lymphocytes % 63.4 %; Mean Corpuscular HGB Conc 32.3 g/dL (30-55); Mean Corpuscular Hemoglobin 32.5 pg (27-33); Mean Corpuscular Volume 100.7 fl (85-98); Mean Platelet Volume 8.5 fL (7.4-10.4); Monocytes # 0.8 10^3/uL (0.2-0.9); Monocytes % 21.3 %; Neutrophils % 11.9 %; Nucleated Red Blood Cells % 0.6 %; Platelet Count 426 10^3/cmm (157-399); Red Blood Count 2.95 10^6/uL (3.85-5.65); Red Cell Distribution Width 17.2 % (12.1-15.1); White Blood Count 3.61 10^3/uL (3.29-11.43)
[2024-02-04 10:22] LABS: Alanine Aminotransferase 16 U/L (0-33); Albumin Level 3.8 g/dL (3.5-5.2); Alkaline Phosphatase 109 U/L (35-105); Anion Gap 13.8 (5-19); Aspartate Amino Transferase 23 U/L (0-32); Blood Urea Nitrogen 9 mg/dL (8-23); Calcium 9.3 mg/dL (8.5-10.5); Carbon Dioxide 24 mmol/L (22-29); Chloride 101 mmol/L (98-107); Creatinine Clr Calc Pharmacy 57.6178; Globulin 2.9 g/dL (1.3-4.6); Glucose 192 mg/dL (65-115); Osmolality Calculated 282 mOsm/kg (285-295); Potassium 4.8 mmol/L (3.5-5.1); Sodium 134 mmol/L (136-145); Total Bilirubin 0.3 mg/dL (0.15-1.2); Total Protein 6.7 g/dL (6.6-8.7)
[2024-02-04 10:55] LABS: Neutrophils # 0.43 10^3/uL (1.8-7.7)
== END 2024-02-08 23:59 | disposition home or self-care (01) ==
PROVIDERS: Nurse Practitioner Family; PCP Family Medicine; Visit Provider Internal Medicine Medical Oncology
DX: C25.2 Malignant neoplasm of tail of pancreas (principal); Z53.9 Procedure and treatment not carried out, unspecified reason; E11.621 Type 2 diabetes mellitus with foot ulcer; L97.511 Non-pressure chronic ulcer of other part of right foot limited to breakdown of skin
CPT/HCPCS: 11721; 36591; 80053; 85025; 86301; 96367; 96375; 96409; 97597; 99213; 99214; A6210; J0640; J2405; J7050; J9190

== ENCOUNTER → 2024-02-11 10:58 | Outpatient (BNVA) | payer MEDICARE, MEDICAID, SELFPAY | PROVIDERS: PCP Family Medicine; Visit Provider Thoracic Surgery (Cardiothoracic Vascular Surgery) | DX: E11.52 Type 2 diabetes mellitus with diabetic peripheral angiopathy with gangrene (principal); E11.621 Type 2 diabetes mellitus with foot ulcer; L97.521 Non-pressure chronic ulcer of other part of left foot limited to breakdown of skin | CPT/HCPCS: 97597; A6210 ==

== ENCOUNTER → 2024-02-25 10:16 | Outpatient (BNVA) | payer MEDICARE, MEDICAID, SELFPAY | PROVIDERS: PCP Family Medicine; Visit Provider Thoracic Surgery (Cardiothoracic Vascular Surgery) | DX: E11.52 Type 2 diabetes mellitus with diabetic peripheral angiopathy with gangrene (principal); E11.621 Type 2 diabetes mellitus with foot ulcer; L97.511 Non-pressure chronic ulcer of other part of right foot limited to breakdown of skin | CPT/HCPCS: 97597; A6210 ==

== ENCOUNTER 2024-03-02 09:30 | Oncology outpatient (recurring) (ONCR) | payer MEDICARE, MEDICAID, SELFPAY ==
[2024-02-09 10:33] LABS: Basophils # 0.1 10^3/uL (0.0-0.1); Basophils % 1.6 %; Eosinophils # 0.1 10^3/uL (0.0-0.8); Eosinophils % 0.7 %; Hematocrit 31.2 % (36-47); Lymphocytes % 37.3 %; Mean Corpuscular HGB Conc 32.4 g/dL (30-55); Mean Corpuscular Hemoglobin 32.7 pg (27-33); Mean Platelet Volume 8.8 fL (7.4-10.4); Monocytes # 1.1 10^3/uL (0.2-0.9); Neutrophils # 3.67 10^3/uL (1.8-7.7); Neutrophils % 45.8 %; Nucleated Red Blood Cells % 0 %; Platelet Count 425 10^3/cmm (157-399); Red Blood Count 3.09 10^6/uL (3.85-5.65); White Blood Count 8.02 10^3/uL (3.29-11.43)
[2024-02-09 10:59] LABS: Alanine Aminotransferase 16 U/L (0-33); Alkaline Phosphatase 104 U/L (35-105); Anion Gap 11.8 (5-19); Aspartate Amino Transferase 23 U/L (0-32); Blood Urea Nitrogen 8 mg/dL (8-23); Calcium 9.7 mg/dL (8.5-10.5); Carbon Dioxide 26 mmol/L (22-29); Chloride 103 mmol/L (98-107); Globulin 2.9 g/dL (1.3-4.6); Glucose 188 mg/dL (65-115); Osmolality Calculated 285 mOsm/kg (285-295); Potassium 4.8 mmol/L (3.5-5.1); Sodium 136 mmol/L (136-145); Total Bilirubin 0.4 mg/dL (0.15-1.2); Total Protein 6.9 g/dL (6.6-8.7)
[2024-02-09 11:19] LABS: Cancer Antigen 19 9 1006 U/mL (0-35)
--- NOTE | 2024-03-02 09:25 | PETR_ITS ---
PROCEDURE INFORMATION: Exam: PET/CT Skull Base to Mid-thigh Exam date and time: 03/02/2024 9:24 AM Age: 73 years old Clinical indication: Ischial oncological staging assessment of pancreatic cancer; status post distal pancreatectomy en block splenectomy. Prior surgery; Surgery date: 6+ months; Surgery type: Open heart, port. LABS AND CLINICAL REPORTS: Glucose: 164 mg/dl Treatment strategy for malignancy (PET staging): Initial Staging (PI) TECHNIQUE: Imaging protocol: Following at least four-hour fasting and following the injection of radiopharmaceutical, low dose CT images were obtained. Then, PET images were obtained. Attenuation corrected images were constructed using the CT scan. Fused images of PET and CT were reviewed. The standardized uptake values (SUV) reported below are maximum values within a region of interest, expressed in gm/ml. Exam includes orbital meatal line to mid-thigh. Radiopharmaceutical: 12.4 mCi F-18 FDG (Fluorodeoxyglucose), IV. Time of imaging post radiopharmaceutical administration: 1 hour Injection site: Port COMPARISON: CT kidney stone [id number] 04/19/2023 8:29 AM FINDINGS: Tubes, catheters and devices: Port catheter placed via the right internal jugular vein terminates in the superior vena cava. There is retained injected isotope within the port and within the external catheter connecting to the port. Brain: Visualized brain has normal physiologic uptake. Pharynx: No abnormal uptake. Larynx: No abnormal uptake. Lungs, pleura and trachea: No abnormal uptake. No suspicious lung nodules or masses. No pleural effusion. Heart: Normal physiologic uptake. Status post CABG surgery and aortic valve replacement.There is no cardiomegaly. There is no pericardial effusion. Mediastinal space: No abnormal uptake. Liver: 1.3 cm focus of slightly increased uptake (4.1 SUV) in the segment 4 of the liver on axial image 116. Gallbladder and biliary ducts: No abnormal uptake. No calcified gallstones. Pancreas: No abnormal uptake. Status post distal pancreatectomy. Spleen: Absent. Adrenal glands: No abnormal uptake. No nodules. Kidneys and ureters: Normal physiologic uptake. No hydronephrosis. 3 tiny nonobstructive stones in the left kidney. Stomach and bowel: No abnormal uptake. Intraperitoneal and retroperitoneal spaces: No abnormal uptake. No ascites. Area of fat necrosis in the left upper quadrant after splenectomy. Bladder: Normal physiologic uptake. Reproductive: No abnormal uptake. Vasculature: No abnormal uptake. Lymph nodes: No abnormal uptake. No lymphadenopathy in the head, neck, chest, abdomen, pelvis, and extremities. Calcified left upper hilar lymph nodes suggestive of benign finding. Skeleton: No abnormal uptake in the visualized axial and appendicular skeleton. Status post sternotomy. Soft tissues: No abnormal uptake in the visualized head, neck, chest, abdomen, pelvis, and extremities. PET/PET skull to thigh INIT [id number] IMPRESSION: About 1.3 cm focus of slightly increased uptake in the segment 4 of the liver. Further evaluation with contrast enhanced MRI is suggested to evaluate for metastasis.
== END 2024-03-10 23:59 | disposition home or self-care (01) ==
LOC: RAD 03-03 00:01 → ONCMED 03-08 11:34
PROVIDERS: Nurse Practitioner Family; PCP Family Medicine; Visit Provider Internal Medicine Medical Oncology
DX: Z53.9 Procedure and treatment not carried out, unspecified reason (principal); C25.2 Malignant neoplasm of tail of pancreas
CPT/HCPCS: 78815; 80053; 85025; 86301; 99214; A9552

== ENCOUNTER → 2024-03-03 10:18 | Outpatient (BNVA) | payer MEDICARE, MEDICAID, SELFPAY | PROVIDERS: PCP Family Medicine; Visit Provider Thoracic Surgery (Cardiothoracic Vascular Surgery) | DX: E11.52 Type 2 diabetes mellitus with diabetic peripheral angiopathy with gangrene (principal); E11.621 Type 2 diabetes mellitus with foot ulcer; L97.521 Non-pressure chronic ulcer of other part of left foot limited to breakdown of skin | CPT/HCPCS: 97597 ==

== ENCOUNTER → 2024-03-17 13:46 | Outpatient (BNVA) | payer MEDICARE, MEDICAID, SELFPAY | PROVIDERS: PCP Family Medicine; Visit Provider Podiatrist Foot & Ankle Surgery | DX: E11.42 Type 2 diabetes mellitus with diabetic polyneuropathy; L60.3 Nail dystrophy; L97.521 Non-pressure chronic ulcer of other part of left foot limited to breakdown of skin; E11.621 Type 2 diabetes mellitus with foot ulcer; Z79.4 Long term (current) use of insulin | CPT/HCPCS: 11042; 11721; 99213 ==

== ENCOUNTER → 2024-04-09 10:07 | Outpatient (BNVA) | payer MEDICARE, MEDICAID, SELFPAY | PROVIDERS: PCP Family Medicine; Visit Provider Internal Medicine | DX: E78.2 Mixed hyperlipidemia; E11.649 Type 2 diabetes mellitus with hypoglycemia without coma; I25.10 Atherosclerotic heart disease of native coronary artery without angina pectoris; D35.00 Benign neoplasm of unspecified adrenal gland; L08.9 Local infection of the skin and subcutaneous tissue, unspecified | CPT/HCPCS: 36415; 80053; 80061; 82044; 83036; 99214 ==

== ENCOUNTER → 2024-04-14 13:28 | Outpatient (BNVA) | payer MEDICARE, MEDICAID, SELFPAY | PROVIDERS: PCP Family Medicine; Visit Provider Podiatrist Foot & Ankle Surgery | DX: E11.42 Type 2 diabetes mellitus with diabetic polyneuropathy (principal); L97.512 Non-pressure chronic ulcer of other part of right foot with fat layer exposed; E11.621 Type 2 diabetes mellitus with foot ulcer; Z79.4 Long term (current) use of insulin | CPT/HCPCS: 11042 ==

== ENCOUNTER → 2024-04-27 14:29 | Outpatient (BNVA) | payer MEDICARE, MEDICAID, SELFPAY | PROVIDERS: PCP Family Medicine; Visit Provider Podiatrist Foot & Ankle Surgery | DX: E11.42 Type 2 diabetes mellitus with diabetic polyneuropathy (principal); Z79.4 Long term (current) use of insulin | CPT/HCPCS: 99213 ==

== ENCOUNTER → 2024-05-24 09:31 | Outpatient (BNVA) | payer MEDICARE, MEDICAID, SELFPAY | PROVIDERS: PCP Family Medicine; Visit Provider Podiatrist Foot & Ankle Surgery | DX: E11.42 Type 2 diabetes mellitus with diabetic polyneuropathy (principal); L97.512 Non-pressure chronic ulcer of other part of right foot with fat layer exposed; L84 Corns and callosities; E11.621 Type 2 diabetes mellitus with foot ulcer; Z79.4 Long term (current) use of insulin | CPT/HCPCS: 99213 ==

== ENCOUNTER 2024-05-31 12:10 | Oncology outpatient (recurring) (ONCR) | payer MEDICARE, MEDICAID, SELFPAY ==
--- NOTE | 2024-05-31 13:30 | MM_ITS ---
WS: [id number] VIEWS: MLO and CC views both breasts. 3D digital tomosynthesis is also included in this exam. No previous exams Findings: There are scattered areas of fibroglandular density. No suspicious mass, tumor calcification or architectural distortion noted. MM/MM scr BI tomosynthesis [id number] Impression: BI-RADS: 2 - Benign FOLLOW-UP: 1 Year Follow-up This mammogram was also analyzed by the Computer Aided Detection System R2 Imag e Juice Weigher.
== END 2024-06-10 23:59 | disposition home or self-care (01) ==
LOC: RAD 12:11 → ONCMED 06-07 10:34
PROVIDERS: PCP Family Medicine; Visit Provider Nurse Practitioner Family
DX: Z12.31 Encounter for screening mammogram for malignant neoplasm of breast (principal); R92.323 Mammographic fibroglandular density, bilateral breasts
CPT/HCPCS: 77063; 77067

== ENCOUNTER 2024-06-11 11:07 | Oncology outpatient (recurring) (ONCR) | payer MEDICARE, MEDICAID, SELFPAY | END 2024-07-10 23:59 | disposition home or self-care (01) | PROVIDERS: PCP Family Medicine; Visit Provider Nurse Practitioner Family | DX: C25.2 Malignant neoplasm of tail of pancreas; I25.10 Atherosclerotic heart disease of native coronary artery without angina pectoris; Z95.3 Presence of xenogenic heart valve; I10 Essential (primary) hypertension | CPT/HCPCS: 99214 ==

== ENCOUNTER → 2024-06-21 15:02 | Outpatient (BNVA) | payer MEDICARE, MEDICAID, SELFPAY | PROVIDERS: PCP Family Medicine; Visit Provider Podiatrist Foot & Ankle Surgery | DX: E11.42 Type 2 diabetes mellitus with diabetic polyneuropathy (principal); E11.69 Type 2 diabetes mellitus with other specified complication; Z79.4 Long term (current) use of insulin; M21.41 Flat foot [pes planus] (acquired), right foot; M21.42 Flat foot [pes planus] (acquired), left foot; M20.41 Other hammer toe(s) (acquired), right foot; M20.42 Other hammer toe(s) (acquired), left foot | CPT/HCPCS: 99213 ==

== ENCOUNTER 2024-07-21 11:26 | Oncology outpatient (recurring) (ONCR) | payer MEDICARE, MEDICAID, SELFPAY | END 2024-08-10 23:59 | disposition home or self-care (01) | PROVIDERS: PCP Family Medicine; Visit Provider Nurse Practitioner Family | DX: Z12.31 Encounter for screening mammogram for malignant neoplasm of breast (principal); R92.323 Mammographic fibroglandular density, bilateral breasts; C25.2 Malignant neoplasm of tail of pancreas | CPT/HCPCS: 17000; 96523; 99213 ==

== ENCOUNTER → 2024-08-10 10:53 | Outpatient (BNVA) | payer MEDICARE, MEDICAID, SELFPAY | PROVIDERS: PCP Family Medicine; Visit Provider Internal Medicine | DX: E11.649 Type 2 diabetes mellitus with hypoglycemia without coma (principal); E78.2 Mixed hyperlipidemia; I25.10 Atherosclerotic heart disease of native coronary artery without angina pectoris; D35.00 Benign neoplasm of unspecified adrenal gland; L08.9 Local infection of the skin and subcutaneous tissue, unspecified; Z79.4 Long term (current) use of insulin | CPT/HCPCS: 99214 ==

== ENCOUNTER 2024-08-25 14:01 | Oncology outpatient (recurring) (ONCR) | payer MEDICARE, MEDICAID, SELFPAY | END 2024-09-10 23:59 | disposition home or self-care (01) | PROVIDERS: PCP Family Medicine; Visit Provider Nurse Practitioner Family | DX: E11.42 Type 2 diabetes mellitus with diabetic polyneuropathy (principal); L60.3 Nail dystrophy; L84 Corns and callosities; M20.41 Other hammer toe(s) (acquired), right foot; M20.42 Other hammer toe(s) (acquired), left foot; E11.8 Type 2 diabetes mellitus with unspecified complications | CPT/HCPCS: 11055; 11721; 96523 ==

== ENCOUNTER 2024-10-06 12:39 | Oncology outpatient (recurring) (ONCR) | payer MEDICARE, MEDICAID, SELFPAY ==
[2024-10-06 14:36] LABS: Basophils # 0.1 10^3/uL (0.0-0.1); Basophils % 0.7 %; Eosinophils # 0.5 10^3/uL (0.0-0.8); Eosinophils % 3.9 %; Hematocrit 36.6 % (36-47); Lymphocytes # 4.6 10^3/uL (0.8-4.8); Lymphocytes % 40.2 %; Mean Corpuscular HGB Conc 33.1 g/dL (30-55); Mean Corpuscular Volume 93.8 fl (85-98); Mean Platelet Volume 9.2 fL (7.4-10.4); Monocytes # 1.1 10^3/uL (0.2-0.9); Monocytes % 9.4 %; Neutrophils # 5.26 10^3/uL (1.8-7.7); Neutrophils % 45.5 %; Nucleated Red Blood Cells % 0 %; Platelet Count 410 10^3/cmm (157-399); Red Cell Distribution Width 12.5 % (12.1-15.1); Reticulocyte % 1.6 % (0.5-2.0); White Blood Count 11.55 10^3/uL (3.29-11.43)
[2024-10-06 15:13] LABS: Alanine Aminotransferase 24 U/L (0-33); Albumin Level 3.9 g/dL (3.5-5.2); Alkaline Phosphatase 215 U/L (35-105); Anion Gap 13.2 (5-19); Aspartate Amino Transferase 35 U/L (0-32); Blood Urea Nitrogen 8 mg/dL (8-23); Calcium 9.5 mg/dL (8.5-10.5); Carbon Dioxide 29 mmol/L (22-29); Chloride 101 mmol/L (98-107); Creatinine Clr Calc Pharmacy 57.7236; Ferritin 258 ng/mL (15-150); Globulin 3.4 g/dL (1.3-4.6); Glucose 100 mg/dL (65-115); Iron 43 ug/dL (37-145); Lactate Dehydrogenase 280 U/L (135-214); Osmolality Calculated 286 mOsm/kg (285-295); Percent Saturation 17.9 % (20-50); Potassium 4.2 mmol/L (3.5-5.1); Sodium 139 mmol/L (136-145); Total Bilirubin 0.3 mg/dL (0.15-1.2); Total Iron Binding Capacity 239 mcg/dl; Total Protein 7.3 g/dL (6.6-8.7); Unsaturated Iron Binding 196 ug/dL (112-347)
[2024-10-06 15:17] LABS: Vitamin B12 > 2000 pg/mL (232-1245)
[2024-10-06 16:54] LABS: Folate Level > 20.0 ng/mL (4.8-37.3)
[2024-10-06 17:05] LABS: Cancer Antigen 19 9 48760 U/mL (0-35)
== END 2024-10-08 23:59 | disposition home or self-care (01) ==
PROVIDERS: PCP Family Medicine; Visit Provider Internal Medicine
DX: C25.2 Malignant neoplasm of tail of pancreas (principal); C78.7 Secondary malignant neoplasm of liver and intrahepatic bile duct; E11.69 Type 2 diabetes mellitus with other specified complication; Z79.4 Long term (current) use of insulin; Z90.49 Acquired absence of other specified parts of digestive tract
CPT/HCPCS: 36591; 80053; 82607; 82728; 82746; 83010; 83540; 83550; 83615; 85025; 85045; 86301; 99213

== ENCOUNTER 2024-11-02 12:32 | Oncology outpatient (recurring) (ONCR) | payer MEDICARE, MEDICAID, SELFPAY ==
[2024-11-02 13:23] LABS: Alanine Aminotransferase 18 U/L (0-33); Albumin Level 3.6 g/dL (3.5-5.2); Alkaline Phosphatase 204 U/L (35-105); Anion Gap 12.5 (5-19); Aspartate Amino Transferase 33 U/L (0-32); Blood Urea Nitrogen 8 mg/dL (8-23); Calcium 9.2 mg/dL (8.5-10.5); Carbon Dioxide 27 mmol/L (22-29); Chloride 97 mmol/L (98-107); Chol HDL Ratio 2.66 mg/dL (0.0-4.40); Cholesterol 93 mg/dL (0-200); Globulin 3.6 g/dL (1.3-4.6); Glucose 125 mg/dL (65-115); HDL Cholesterol 35 mg/dL (60-100); LDL Cholesterol Calculated 44 mg/dL (50-129); LDL HDL Ratio 1.26 RATIO (0.00-3.22); Osmolality Calculated 274 mOsm/kg (285-295); Potassium 4.5 mmol/L (3.5-5.1); Sodium 132 mmol/L (136-145); Total Bilirubin 0.3 mg/dL (0.15-1.2); Total Protein 7.2 g/dL (6.6-8.7); Triglycerides 68 mg/dL (0-150)
[2024-11-02 13:25] LABS: Estmated Average Glucose 232; Hemoglobin A1C 9.7 % (4.0-6.0)
== END 2024-11-08 23:59 | disposition home or self-care (01) ==
LOC: ONCMED 12:33
PROVIDERS: Internal Medicine; PCP Family Medicine; Visit Provider Internal Medicine Medical Oncology
DX: C25.2 Malignant neoplasm of tail of pancreas (principal); C78.7 Secondary malignant neoplasm of liver and intrahepatic bile duct; E11.69 Type 2 diabetes mellitus with other specified complication; Z79.4 Long term (current) use of insulin; Z90.411 Acquired partial absence of pancreas; Z90.81 Acquired absence of spleen; I10 Essential (primary) hypertension; E78.5 Hyperlipidemia, unspecified; I35.0 Nonrheumatic aortic (valve) stenosis; I25.10 Atherosclerotic heart disease of native coronary artery without angina pectoris
CPT/HCPCS: 36591; 80053; 80061; 83036; 99213

== ENCOUNTER → 2024-11-05 11:08 | Outpatient (BNVA) | payer MEDICARE, MEDICAID, SELFPAY | PROVIDERS: PCP Family Medicine; Visit Provider Internal Medicine | DX: E11.69 Type 2 diabetes mellitus with other specified complication (principal); Z79.4 Long term (current) use of insulin; E78.2 Mixed hyperlipidemia; E11.649 Type 2 diabetes mellitus with hypoglycemia without coma; I25.10 Atherosclerotic heart disease of native coronary artery without angina pectoris; L08.9 Local infection of the skin and subcutaneous tissue, unspecified; D35.02 Benign neoplasm of left adrenal gland | CPT/HCPCS: 99214 ==

== ENCOUNTER 2024-12-03 10:30 | Oncology outpatient (recurring) (ONCR) | payer MEDICARE, MEDICAID, SELFPAY ==
[2024-11-16 14:12] LABS: Basophils # 0.1 10^3/uL (0.0-0.1); Basophils % 0.7 %; Eosinophils # 0.2 10^3/uL (0.0-0.8); Eosinophils % 1.7 %; Hematocrit 35.4 % (36-47); Lymphocytes # 4.3 10^3/uL (0.8-4.8); Lymphocytes % 32.1 %; Mean Corpuscular HGB Conc 32.8 g/dL (30-55); Mean Corpuscular Hemoglobin 30.3 pg (27-33); Mean Corpuscular Volume 92.4 fl (85-98); Mean Platelet Volume 9.1 fL (7.4-10.4); Monocytes # 1.1 10^3/uL (0.2-0.9); Monocytes % 7.9 %; Neutrophils # 7.63 10^3/uL (1.8-7.7); Neutrophils % 57.2 %; Nucleated Red Blood Cells % 0 %; Platelet Count 431 10^3/cmm (157-399); Red Blood Count 3.83 10^6/uL (3.85-5.65); Red Cell Distribution Width 13.6 % (12.1-15.1); White Blood Count 13.32 10^3/uL (3.29-11.43)
[2024-11-16 14:39] LABS: Alanine Aminotransferase 22 U/L (0-33); Albumin Level 3.6 g/dL (3.5-5.2); Alkaline Phosphatase 192 U/L (35-105); Anion Gap 13.3 (5-19); Aspartate Amino Transferase 36 U/L (0-32); Blood Urea Nitrogen 10 mg/dL (8-23); Calcium 9.4 mg/dL (8.5-10.5); Carbon Dioxide 26 mmol/L (22-29); Chloride 98 mmol/L (98-107); Globulin 3.5 g/dL (1.3-4.6); Glucose 156 mg/dL (65-115); Osmolality Calculated 278 mOsm/kg (285-295); Potassium 4.3 mmol/L (3.5-5.1); Sodium 133 mmol/L (136-145); Total Bilirubin 0.3 mg/dL (0.15-1.2); Total Protein 7.1 g/dL (6.6-8.7)
[2024-11-16 16:39] LABS: Cancer Antigen 19 9 97071 U/mL (0-35)
[2024-11-16 18:11] LABS: Magnesium 1.8 mg/dL (1.7-2.3)
[2024-11-17 08:40] VITALS: BP 130/76; PULSE 58; O2SAT 97
[2024-11-17] MEDS: dextrose 5% 250 ML 25 ML IV (09:15)
[2024-11-17] MEDS: palonosetron 0.25 mg/5 mL SDV IVP (09:15)
[2024-11-17] MEDS: dexamethasone 4 mg/mL INJ 5 mL 12 MG IVP (09:18)
[2024-11-17] MEDS: atropine 1 mg/mL SDV 1 mL 0.4 MG IV (09:47)
[2024-11-17] MEDS: leucovorin 700 MG in dextrose 5% 250 ML 213.33 MG IV (09:49)
[2024-11-17] MEDS: irinotecan 300 MG, irinotecan 20 MG in dextrose 5% 250 ML 177.33 MG IV (09:50)
[2024-11-17] MEDS: fluorouraciL 4,200 MG, elastomeric pump 1 PUMP in sodium chloride 0.9% (100 ml) 8 ML IV (11:38)
[2024-11-17 11:54] VITALS: BP 150/68; PULSE 62; RESP 17; TEMP 36; O2SAT 96
[2024-11-24 13:38] LABS: Basophils % 0.2 %; Eosinophils # 0.5 10^3/uL (0.0-0.8); Eosinophils % 5.7 %; Hematocrit 30.1 % (36-47); Lymphocytes # 2.8 10^3/uL (0.8-4.8); Lymphocytes % 31.7 %; Mean Corpuscular HGB Conc 33.2 g/dL (30-55); Mean Corpuscular Hemoglobin 30.3 pg (27-33); Mean Corpuscular Volume 91.2 fl (85-98); Mean Platelet Volume 9.6 fL (7.4-10.4); Monocytes # 0.5 10^3/uL (0.2-0.9); Monocytes % 6.2 %; Neutrophils # 4.87 10^3/uL (1.8-7.7); Neutrophils % 55.9 %; Nucleated Red Blood Cells % 0.2 %; Platelet Count 271 10^3/cmm (157-399); White Blood Count 8.72 10^3/uL (3.29-11.43)
[2024-11-24 13:59] LABS: Alanine Aminotransferase 16 U/L (0-33); Albumin Level 3.3 g/dL (3.5-5.2); Alkaline Phosphatase 182 U/L (35-105); Anion Gap 14.3 (5-19); Aspartate Amino Transferase 23 U/L (0-32); Blood Urea Nitrogen 9 mg/dL (8-23); Calcium 8.7 mg/dL (8.5-10.5); Carbon Dioxide 24 mmol/L (22-29); Chloride 94 mmol/L (98-107); Globulin 3.3 g/dL (1.3-4.6); Glucose 150 mg/dL (65-115); Osmolality Calculated 268 mOsm/kg (285-295); Potassium 4.3 mmol/L (3.5-5.1); Sodium 128 mmol/L (136-145); Total Bilirubin 0.4 mg/dL (0.15-1.2); Total Protein 6.6 g/dL (6.6-8.7)
[2024-12-01 07:55] LABS: Basophils # 0.1 10^3/uL (0.0-0.1); Basophils % 1.1 %; Eosinophils # 0.8 10^3/uL (0.0-0.8); Eosinophils % 11.7 %; Hematocrit 30.6 % (36-47); Lymphocytes # 1.6 10^3/uL (0.8-4.8); Lymphocytes % 25.7 %; Mean Corpuscular Hemoglobin 30.3 pg (27-33); Mean Corpuscular Volume 94.7 fl (85-98); Monocytes # 0.7 10^3/uL (0.2-0.9); Neutrophils # 3.21 10^3/uL (1.8-7.7); Neutrophils % 50.2 %; Nucleated Red Blood Cells % 0 %; Platelet Count 420 10^3/cmm (157-399); Red Blood Count 3.23 10^6/uL (3.85-5.65); Red Cell Distribution Width 13.8 % (12.1-15.1); White Blood Count 6.39 10^3/uL (3.29-11.43)
[2024-12-01 08:23] LABS: Carcinoembryonic Antigen 222.4 ng/mL (0.0-4.7)
[2024-12-01 08:34] LABS: Alanine Aminotransferase 15 U/L (0-33); Albumin Level 3.4 g/dL (3.5-5.2); Alkaline Phosphatase 193 U/L (35-105); Anion Gap 12.4 (5-19); Aspartate Amino Transferase 22 U/L (0-32); Blood Urea Nitrogen 11 mg/dL (8-23); Calcium 8.8 mg/dL (8.5-10.5); Carbon Dioxide 28 mmol/L (22-29); Chloride 101 mmol/L (98-107); Creatinine Clr Calc Pharmacy 56.8266; Globulin 3.2 g/dL (1.3-4.6); Glucose 146 mg/dL (65-115); Osmolality Calculated 286 mOsm/kg (285-295); Potassium 4.4 mmol/L (3.5-5.1); Sodium 137 mmol/L (136-145); Total Bilirubin 0.3 mg/dL (0.15-1.2); Total Protein 6.6 g/dL (6.6-8.7)
[2024-12-01] MEDS: dextrose 5% 250 ML 75 ML IV (08:58)
[2024-12-01] MEDS: palonosetron 0.25 mg/5 mL SDV IVP (09:00)
[2024-12-01] MEDS: dexamethasone 4 mg/mL INJ 5 mL 12 MG IVP (09:03)
[2024-12-01] MEDS: atropine 1 mg/mL SDV 1 mL 0.4 MG IV (09:07)
[2024-12-01] MEDS: leucovorin 700 MG in dextrose 5% 250 ML 166.67 MG IV (10:25)
[2024-12-01] MEDS: irinotecan 300 MG, irinotecan 20 MG in dextrose 5% 250 ML 177.33 MG IV (10:25)
[2024-12-01] MEDS: fluorouraciL 4,200 MG, elastomeric pump 1 PUMP in sodium chloride 0.9% (100 ml) 8 ML IV (12:27)
[2024-12-01 12:41] VITALS: BP 144/81; PULSE 69; RESP 17; TEMP 36.7; O2SAT 96
[2024-12-03 10:27] VITALS: BP 160/74; PULSE 51; RESP 17; TEMP 36.2; O2SAT 98
== END 2024-12-08 23:59 | disposition home or self-care (01) ==
PROVIDERS: Internal Medicine Medical Oncology; Nurse Practitioner Family; PCP Family Medicine; Visit Provider Internal Medicine
DX: Z53.9 Procedure and treatment not carried out, unspecified reason; Z45.1 Encounter for adjustment and management of infusion pump
CPT/HCPCS: 11055; 11721; 36591; 80053; 82378; 83735; 85025; 86301; 96366; 96367; 96375; 96409; 96413; 96415; 96416; 96523; 99214; 99215; J0461; J0640; J1100; J2469; J7060; J9190; J9206

== ENCOUNTER 2024-12-31 10:30 | Oncology outpatient (recurring) (ONCR) | payer OTHER, MEDICAID, SELFPAY ==
[2024-12-09 10:25] LABS: Basophils % 0.2 %; Eosinophils # 0.6 10^3/uL (0.0-0.8); Hematocrit 29.7 % (36-47); Lymphocytes # 2.6 10^3/uL (0.8-4.8); Lymphocytes % 39.7 %; Mean Corpuscular HGB Conc 32.3 g/dL (30-55); Mean Corpuscular Hemoglobin 30.6 pg (27-33); Mean Corpuscular Volume 94.6 fl (85-98); Mean Platelet Volume 9.3 fL (7.4-10.4); Monocytes # 0.3 10^3/uL (0.2-0.9); Monocytes % 5.1 %; Neutrophils # 2.95 10^3/uL (1.8-7.7); Neutrophils % 45.5 %; Nucleated Red Blood Cells % 0.3 %; Platelet Count 315 10^3/cmm (157-399); Red Blood Count 3.14 10^6/uL (3.85-5.65); Red Cell Distribution Width 13.9 % (12.1-15.1); White Blood Count 6.47 10^3/uL (3.29-11.43)
[2024-12-09 10:43] LABS: Alanine Aminotransferase 16 U/L (0-33); Albumin Level 3.3 g/dL (3.5-5.2); Alkaline Phosphatase 161 U/L (35-105); Anion Gap 13.6 (5-19); Aspartate Amino Transferase 21 U/L (0-32); Blood Urea Nitrogen 10 mg/dL (8-23); Calcium 8.8 mg/dL (8.5-10.5); Carbon Dioxide 24 mmol/L (22-29); Chloride 102 mmol/L (98-107); Creatinine Clr Calc Pharmacy 56.7704; Glucose 99 mg/dL (65-115); Osmolality Calculated 279 mOsm/kg (285-295); Potassium 4.6 mmol/L (3.5-5.1); Sodium 135 mmol/L (136-145); Total Bilirubin 0.3 mg/dL (0.15-1.2); Total Protein 6.3 g/dL (6.6-8.7)
[2024-12-15 07:40] LABS: Basophils # 0.1 10^3/uL (0.0-0.1); Basophils % 1.2 %; Eosinophils # 0.7 10^3/uL (0.0-0.8); Eosinophils % 12.3 %; Hematocrit 31.7 % (36-47); Lymphocytes # 1.8 10^3/uL (0.8-4.8); Lymphocytes % 30.2 %; Mean Corpuscular HGB Conc 31.9 g/dL (30-55); Mean Corpuscular Hemoglobin 30.6 pg (27-33); Mean Corpuscular Volume 96.1 fl (85-98); Mean Platelet Volume 8.8 fL (7.4-10.4); Monocytes # 0.7 10^3/uL (0.2-0.9); Monocytes % 10.9 %; Neutrophils # 2.72 10^3/uL (1.8-7.7); Neutrophils % 45.1 %; Nucleated Red Blood Cells % 0.5 %; Platelet Count 428 10^3/cmm (157-399); Red Cell Distribution Width 14.6 % (12.1-15.1); White Blood Count 6.03 10^3/uL (3.29-11.43)
[2024-12-15 08:12] LABS: Alanine Aminotransferase 17 U/L (0-33); Albumin Level 3.3 g/dL (3.5-5.2); Alkaline Phosphatase 183 U/L (35-105); Anion Gap 13.2 (5-19); Aspartate Amino Transferase 24 U/L (0-32); Blood Urea Nitrogen 11 mg/dL (8-23); Calcium 9.2 mg/dL (8.5-10.5); Carbon Dioxide 26 mmol/L (22-29); Chloride 102 mmol/L (98-107); Creatinine Clr Calc Pharmacy 56.7704; Ferritin 320 ng/mL (15-150); Globulin 3.3 g/dL (1.3-4.6); Glucose 178 mg/dL (65-115); Iron 70 ug/dL (37-145); Magnesium 1.8 mg/dL (1.7-2.3); Osmolality Calculated 288 mOsm/kg (285-295); Percent Saturation 30.9 % (20-50); Potassium 4.2 mmol/L (3.5-5.1); Sodium 137 mmol/L (136-145); Total Bilirubin 0.2 mg/dL (0.15-1.2); Total Iron Binding Capacity 226 mcg/dl; Total Protein 6.6 g/dL (6.6-8.7); Unsaturated Iron Binding 156 ug/dL (112-347)
[2024-12-15] MEDS: palonosetron 0.25 mg/5 mL SDV IVP (08:48)
[2024-12-15] MEDS: dextrose 5% 250 ML 75 ML IV (08:48)
[2024-12-15 08:49] LABS: Folate Level > 20.0 ng/mL (4.8-37.3); Vitamin B12 > 2000 pg/mL (232-1245)
[2024-12-15] MEDS: dexamethasone 4 mg/mL INJ 5 mL 12 MG IVP (08:49)
[2024-12-15] MEDS: atropine 1 mg/mL SDV 1 mL 0.4 MG IV (09:34)
[2024-12-15] MEDS: leucovorin 680 MG in dextrose 5% 250 ML 166.67 MG IV (09:39)
[2024-12-15] MEDS: irinotecan 300 MG, irinotecan 10 MG in dextrose 5% 250 ML 177 MG IV (09:39)
[2024-12-15] MEDS: fluorouraciL 4,150 MG, elastomeric pump 1 PUMP in sodium chloride 0.9% (100 ml) 9 ML IV (11:39)
[2024-12-15 11:41] VITALS: BP 157/77; PULSE 65; TEMP 36.2; O2SAT 98
[2024-12-29 07:39] LABS: Basophils % 0.8 %; Eosinophils # 0.4 10^3/uL (0.0-0.8); Eosinophils % 6.7 %; Hematocrit 31.4 % (36-47); Lymphocytes # 2.1 10^3/uL (0.8-4.8); Lymphocytes % 39.7 %; Mean Corpuscular HGB Conc 31.8 g/dL (30-55); Mean Corpuscular Hemoglobin 30.9 pg (27-33); Mean Corpuscular Volume 96.9 fl (85-98); Mean Platelet Volume 8.9 fL (7.4-10.4); Monocytes # 0.7 10^3/uL (0.2-0.9); Monocytes % 13.1 %; Neutrophils # 2.08 10^3/uL (1.8-7.7); Neutrophils % 39.5 %; Nucleated Red Blood Cells % 0.4 %; Platelet Count 384 10^3/cmm (157-399); Red Blood Count 3.24 10^6/uL (3.85-5.65); Red Cell Distribution Width 15.6 % (12.1-15.1); White Blood Count 5.26 10^3/uL (3.29-11.43)
[2024-12-29 07:50] LABS: Bilirubin Urine Negative (Negative); Blood Urine Negative (Negative); Glucose Urine UA Negative (Normal); Ketones Urine Trace (Negative); Leukocyte Esterase Urine 1+ (Negative); Nitrate Urine Negative (Negative); Protein Urine Trace (Negative); Specific Gravity, Urine 1.024 (1.005-1.030); Urine Appearance Clear (CLEAR); Urine Color Dark Yellow (Yellow); pH Urine 7.5 (5-7)
[2024-12-29 07:55] LABS: Add Urine Microscopic? YES; Bacteria Urine None Seen /hpf; Hyaline Casts Urine 4.11 /lpf; RBC Urine 0-2 /hpf (0-2); Squamous Epithelial Cell Urine 0-5 /hpf (0-5)
[2024-12-29 07:57] LABS: Alanine Aminotransferase 15 U/L (0-33); Albumin Level 3.4 g/dL (3.5-5.2); Alkaline Phosphatase 151 U/L (35-105); Anion Gap 13.4 (5-19); Aspartate Amino Transferase 26 U/L (0-32); Blood Urea Nitrogen 8 mg/dL (8-23); Calcium 9.2 mg/dL (8.5-10.5); Carbon Dioxide 26 mmol/L (22-29); Chloride 104 mmol/L (98-107); Chol HDL Ratio 2.26 mg/dL (0.0-4.40); Cholesterol 95 mg/dL (0-200); Creatinine Clr Calc Pharmacy 56.7704; Glucose 107 mg/dL (65-115); HDL Cholesterol 42 mg/dL (60-100); LDL Cholesterol Calculated 40 mg/dL (50-129); LDL HDL Ratio 0.95 RATIO (0.00-3.22); Osmolality Calculated 287 mOsm/kg (285-295); Potassium 4.4 mmol/L (3.5-5.1); Sodium 139 mmol/L (136-145); Total Bilirubin 0.3 mg/dL (0.15-1.2); Total Protein 6.4 g/dL (6.6-8.7); Triglycerides 66 mg/dL (0-150)
[2024-12-29 08:10] LABS: Creatinine Urine, Random 220 mg/dL (28-217); Microalbum Creatinine Ratio Ur 9 mg/dL (0-20); Microalbumin Random Urine 2 ug/dL (0-20)
[2024-12-29 08:15] LABS: Add Urine Culture? No
[2024-12-29 08:15] LABS: Estmated Average Glucose 209; Hemoglobin A1C 8.9 % (4.0-6.0)
[2024-12-29] MEDS: dextrose 5% 250 ML 75 ML IV (09:40)
[2024-12-29] MEDS: palonosetron 0.25 mg/5 mL SDV IVP (09:41)
[2024-12-29] MEDS: dexamethasone 4 mg/mL INJ 5 mL 12 MG IVP (09:42)
[2024-12-29] MEDS: atropine 1 mg/mL SDV 1 mL 0.4 MG IV (09:46)
[2024-12-29] MEDS: leucovorin 680 MG in dextrose 5% 250 ML 166.67 MG IV (10:16)
[2024-12-29] MEDS: irinotecan 300 MG, irinotecan 10 MG in dextrose 5% 250 ML 177 MG IV (10:24)
[2024-12-29] MEDS: fluorouraciL 4,150 MG, elastomeric pump 1 PUMP in sodium chloride 0.9% (100 ml) 9 ML IV (12:19)
[2024-12-29 12:26] VITALS: BP 167/78; PULSE 58; RESP 18; TEMP 36.2; O2SAT 100
[2024-12-31 09:55] VITALS: BP 167/77; PULSE 52; RESP 17; TEMP 36.5; O2SAT 98
== END 2025-01-08 23:59 | disposition home or self-care (01) ==
PROVIDERS: Internal Medicine; Nurse Practitioner Family; PCP Family Medicine; Visit Provider Internal Medicine
DX: Z53.9 Procedure and treatment not carried out, unspecified reason; Z45.1 Encounter for adjustment and management of infusion pump
CPT/HCPCS: 36591; 80053; 80061; 81001; 82044; 82607; 82728; 82746; 83010; 83036; 83540; 83550; 83735; 85025; 96368; 96374; 96375; 96413; 96415; 96416; 96417; 96523; 99213; 99214; J0461; J0640; J1100; J2469; J7060; J9190; J9206

== ENCOUNTER 2025-01-28 10:15 | Oncology outpatient (recurring) (ONCR) | payer OTHER, MEDICAID, SELFPAY ==
[2025-01-12 08:42] LABS: Basophils # 0.1 10^3/uL (0.0-0.1); Eosinophils # 0.2 10^3/uL (0.0-0.8); Eosinophils % 4.3 %; Hematocrit 31.6 % (36-47); Lymphocytes # 2.5 10^3/uL (0.8-4.8); Lymphocytes % 48.8 %; Mean Corpuscular Hemoglobin 30.6 pg (27-33); Mean Corpuscular Volume 95.8 fl (85-98); Mean Platelet Volume 9.1 fL (7.4-10.4); Monocytes # 0.5 10^3/uL (0.2-0.9); Monocytes % 10.6 %; Neutrophils # 1.79 10^3/uL (1.8-7.7); Neutrophils % 35.1 %; Nucleated Red Blood Cells % 0.8 %; Platelet Count 372 10^3/cmm (157-399); Red Cell Distribution Width 16.1 % (12.1-15.1)
[2025-01-12 08:54] LABS: Bilirubin Urine Negative (Negative); Blood Urine Negative (Negative); Glucose Urine UA Negative (Normal); Ketones Urine Negative (Negative); Leukocyte Esterase Urine Trace (Negative); Nitrate Urine Negative (Negative); Protein Urine Negative (Negative); Specific Gravity, Urine 1.011 (1.005-1.030); Urine Appearance Clear (CLEAR); Urine Color Yellow (Yellow); Urobilinogen Urine 0.2 mg/dL (Negative); pH Urine 7.5 (5-7)
[2025-01-12 08:57] LABS: Alanine Aminotransferase 15 U/L (0-33); Albumin Level 3.7 g/dL (3.5-5.2); Alkaline Phosphatase 146 U/L (35-105); Anion Gap 13.6 (5-19); Aspartate Amino Transferase 22 U/L (0-32); Blood Urea Nitrogen 11 mg/dL (8-23); Calcium 9.1 mg/dL (8.5-10.5); Carbon Dioxide 27 mmol/L (22-29); Chloride 100 mmol/L (98-107); Creatinine Clr Calc Pharmacy 56.7704; Globulin 2.9 g/dL (1.3-4.6); Glucose 113 mg/dL (65-115); Osmolality Calculated 282 mOsm/kg (285-295); Potassium 4.6 mmol/L (3.5-5.1); Sodium 136 mmol/L (136-145); Total Bilirubin 0.3 mg/dL (0.15-1.2); Total Protein 6.6 g/dL (6.6-8.7)
[2025-01-12 08:59] LABS: Add Urine Microscopic? YES; Bacteria Urine None Seen /hpf; Hyaline Casts Urine 0-4 /lpf; RBC Urine 0-2 /hpf (0-2); Squamous Epithelial Cell Urine 0-5 /hpf (0-5); WBC Urine 0-5 /hpf (0-5)
[2025-01-12] MEDS: dextrose 5% 250 ML 75 ML IV (09:47)
[2025-01-12] MEDS: dexamethasone 4 mg/mL INJ 5 mL 12 MG IVP (09:50)
[2025-01-12] MEDS: palonosetron 0.25 mg/5 mL SDV IVP (09:56)
[2025-01-12] MEDS: atropine 1 mg/mL SDV 1 mL 0.4 MG IV (10:21)
[2025-01-12] MEDS: leucovorin 680 MG in dextrose 5% 250 ML 166.67 MG IV (10:46)
[2025-01-12] MEDS: irinotecan 300 MG, irinotecan 10 MG in dextrose 5% 250 ML 177 MG IV (10:46)
[2025-01-12 12:45] VITALS: BP 124/76; PULSE 76; RESP 16; TEMP 36.6; O2SAT 98
[2025-01-12] MEDS: fluorouraciL 4,150 MG, elastomeric pump 1 PUMP in sodium chloride 0.9% (100 ml) 9 ML IV (12:48)
[2025-01-26 08:24] LABS: Basophils % 0.9 %; Eosinophils # 0.2 10^3/uL (0.0-0.8); Eosinophils % 3.7 %; Hematocrit 29.6 % (36-47); Lymphocytes # 1.9 10^3/uL (0.8-4.8); Lymphocytes % 40.6 %; Mean Corpuscular HGB Conc 32.1 g/dL (30-55); Mean Corpuscular Hemoglobin 30.9 pg (27-33); Mean Corpuscular Volume 96.4 fl (85-98); Mean Platelet Volume 9.2 fL (7.4-10.4); Monocytes # 0.6 10^3/uL (0.2-0.9); Monocytes % 13.1 %; Neutrophils % 41.5 %; Nucleated Red Blood Cells % 0.9 %; Platelet Count 335 10^3/cmm (157-399); Red Blood Count 3.07 10^6/uL (3.85-5.65); Red Cell Distribution Width 17.1 % (12.1-15.1); White Blood Count 4.58 10^3/uL (3.29-11.43)
[2025-01-26 08:40] LABS: Alanine Aminotransferase 16 U/L (0-33); Albumin Level 3.5 g/dL (3.5-5.2); Alkaline Phosphatase 129 U/L (35-105); Anion Gap 11.4 (5-19); Aspartate Amino Transferase 23 U/L (0-32); Blood Urea Nitrogen 10 mg/dL (8-23); Carbon Dioxide 27 mmol/L (22-29); Chloride 101 mmol/L (98-107); Creatinine Clr Calc Pharmacy 57.3087; Globulin 2.7 g/dL (1.3-4.6); Glucose 169 mg/dL (65-115); Osmolality Calculated 283 mOsm/kg (285-295); Potassium 4.4 mmol/L (3.5-5.1); Sodium 135 mmol/L (136-145); Total Bilirubin 0.3 mg/dL (0.15-1.2); Total Protein 6.2 g/dL (6.6-8.7)
[2025-01-26 10:17] LABS: Bilirubin Urine Negative (Negative); Blood Urine Negative (Negative); Glucose Urine UA Negative (Normal); Ketones Urine Negative (Negative); Leukocyte Esterase Urine Negative (Negative); Nitrate Urine Negative (Negative); Protein Urine Negative (Negative); Specific Gravity, Urine 1.021 (1.005-1.030); Urine Appearance Clear (CLEAR); Urine Color Yellow (Yellow)
[2025-01-26] MEDS: dexamethasone 4 mg/mL INJ 5 mL 12 MG IVP (10:19)
[2025-01-26] MEDS: dextrose 5% 250 ML 75 ML IV (10:19)
[2025-01-26 10:22] LABS: Add Urine Microscopic? YES; Bacteria Urine None Seen /hpf; Hyaline Casts Urine 0-4 /lpf; RBC Urine 0-2 /hpf (0-2); Squamous Epithelial Cell Urine 0-5 /hpf (0-5); WBC Urine 0-5 /hpf (0-5)
[2025-01-26] MEDS: palonosetron 0.25 mg/5 mL SDV IVP (10:28)
[2025-01-26] MEDS: atropine 1 mg/mL SDV 1 mL 0.4 MG IV (11:08)
[2025-01-26] MEDS: leucovorin 700 MG in dextrose 5% 250 ML 166.67 MG IV (11:17)
[2025-01-26] MEDS: irinotecan 300 MG, irinotecan 10 MG in dextrose 5% 250 ML 177 MG IV (11:17)
[2025-01-26 11:20] LABS: Carcinoembryonic Antigen 142.1 ng/mL (0.0-4.7)
[2025-01-26 12:18] LABS: Cancer Antigen 19 9 > 10000 U/mL (0-35)
[2025-01-26] MEDS: fluorouraciL 4,200 MG, elastomeric pump 1 PUMP in sodium chloride 0.9% (100 ml) 8 ML IV (13:28)
[2025-01-26 13:30] VITALS: BP 121/80; PULSE 77; RESP 18; TEMP 37; O2SAT 99
[2025-01-28 10:30] VITALS: BP 174/85; PULSE 50; RESP 17; TEMP 36.5; O2SAT 99
== END 2025-02-07 23:59 | disposition home or self-care (01) ==
PROVIDERS: Nurse Practitioner Family; PCP Family Medicine; Visit Provider Internal Medicine
DX: Z53.9 Procedure and treatment not carried out, unspecified reason; Z45.1 Encounter for adjustment and management of infusion pump
CPT/HCPCS: 80053; 81001; 82378; 85025; 86301; 96368; 96375; 96413; 96415; 96416; 96523; 99214; J0461; J0640; J1100; J2469; J7060; J9190; J9206

== ENCOUNTER → 2025-02-01 08:27 | Outpatient (BNVA) | payer OTHER, MEDICAID, SELFPAY | PROVIDERS: PCP Family Medicine; Visit Provider Podiatrist Foot & Ankle Surgery | DX: E11.42 Type 2 diabetes mellitus with diabetic polyneuropathy (principal); L60.3 Nail dystrophy; L84 Corns and callosities; M20.41 Other hammer toe(s) (acquired), right foot; M20.42 Other hammer toe(s) (acquired), left foot | CPT/HCPCS: 11055; 11721 ==

== ENCOUNTER 2025-02-16 11:17 | Day surgery (SDC) | payer OTHER, MEDICAID, SELFPAY ==
[2025-02-16 11:26] VITALS: BP 147/65; PULSE 62; RESP 17; TEMP 36.6; O2SAT 98
--- NOTE | 2025-02-16 11:42 | US_ITS ---
WS: [id number] Ultrasound-guided liver mass biopsy INDICATION: Liver metastasis TECHNIQUE: Anesthesia was present for sedation. Prior CT imaging was reviewed. The procedure including risks, benefits, and complications were discussed with the patient who agreed to proceed. Timeout was performed. Using sterile technique, the patient was prepped and draped in usual sterile fashion. After 1% lidocaine, using ultrasound guidance, approximately five 18-gauge cores were obtained of the peripheral dense hypoechoic liver lesion. 10-minute post liver ultrasound images demonstrate a small amount of surrounding edema and trace fluid/hematoma. No concerning findings. Patient was discharged after 1 hour in stable condition. US/US biopsy liver [id number] IMPRESSION: Uncomplicated ultrasound-guided liver mass biopsy Pathology is pending.
[2025-02-16 12:03] VITALS: BMI 32.5
--- NOTE | 2025-02-16 12:04 | ANES.PREANE2 ---
Pre-Anesthetic Assessment Height/Weight: Height 1.52 m Preop Diagnosis: Pancreatic Cancer with mets Operation Date: 02/16/25 13:15 Proposed Procedures p Ultrasound Biopsy(Not Applicable) - DOCTOR NOT ON FILE Familial anesthetic complications: none Was Beta Chauncey taken within 24 hours: Yes Was Clonidine taken within 24 hours: N/A Social No alcohol and No tobacco Exam alert, oriented x 3, clear to auscultation bilaterally and regular rate & rhythm Airway Submandibular: within normal limits Cervical ROM: within normal limits Mallampati: Class II Dentition: false History/ROS No significant history except as noted and No significant complaints Pulmonary None reported CV/HEM Coronary Artery Disease and Hypertension History of Aortic Valve Replacement 2020 None reported Hepatic Liver Biopsy for possible mets GI None reported Metabolic Diabetes Mellitus [facility] [place]/skel None reported Neuropsych None reported Anesthetic Plan ASA status: 3 Anesthesia: MAC Risk of > 500 ml blood loss (7ml/kg in children): No Medications/Allergies Home Medications ?Medication ?Instructions ?Recorded ?Confirmed ?Last Taken ?Type ascorbate calcium (vitamin C) 500 500 mg PO DAILY 09/04/20 02/14/25 06/04/23 History mg tablet omega-3 acid ethyl esters 1 gram 1 cap PO DAILY 02/21/21 02/14/25 06/04/23 History capsule multivitamin 1 tab PO DAILY 05/18/21 02/14/25 06/04/23 History flash glucose scanning reader #1 ea 05/31/21 02/08/25 Unknown Rx (FreeStyle Myke 2 [place]) aspirin 81 mg tablet,delayed 81 mg PO DAILY 12/10/21 02/14/25 1 Week Ago History release (Adult Low Dose Aspirin) ~02/07/25 cholecalciferol (vitamin D3) 25 5,000 unit PO DAILY 12/10/21 02/14/25 06/04/23 History mcg (1,000 unit) capsule sennosides 8.6 mg capsule (senna) 8.6 mg PO BID 04/15/23 02/14/25 06/04/23 History wheelchair #1 ea 04/22/23 02/08/25 Unknown Rx walker #1 ea 04/30/23 02/08/25 Unknown Rx wheelchair #1 ea 04/30/23 02/08/25 Unknown Rx lancets (Accu-Chek Softclix #100 ea 06/24/24 02/08/25 Unknown Rx Lancets) pen needle, diabetic 32 gauge x #200 ea 06/24/24 02/08/25 Unknown Rx 5/32 (BD Kelly 2nd Gen Pen Needle) lidocaine-prilocaine 2.5 %-2.5 % 1 applic topical DIRECTED #30 10/13/24 02/14/25 Unknown Rx topical cream grams diphenoxylate-atropine 2.5 2 tab PO QID PRN diarrhea #60 tabs 11/10/24 02/16/25 02/16/25 Rx mg-0.025 mg tablet (Lomotil) lorazepam 1 mg tablet 0.5 - 1 mg (0.5 - 1 x 1 mg) PO Q6H 11/10/24 02/14/25 Unknown Rx PRN severe nausea #30 tabs prochlorperazine maleate 10 mg 10 mg PO Q4H PRN mild nausea #30 11/10/24 02/14/25 Unknown Rx tablet (Compazine) tabs blood sugar diagnostic (OneTouch #100 ea 11/11/24 02/08/25 Unknown Rx Verio test strips) ondansetron HCl 4 mg tablet 4 mg PO Q6H PRN nausea and 11/15/24 02/14/25 Unknown Rx vomiting #30 tabs Tresiba FlexTouch U-100 100 See Rx Instructions .Route 11/25/24 02/14/25 02/14/25 Rx unit/mL (3 mL) subcutaneous pen .COMPLEX #15 mL (insulin degludec) omeprazole 20 mg capsule,delayed 20 mg PO DAILY #30 caps 12/01/24 02/14/25 02/14/25 Rx release atorvastatin 80 mg tablet 80 mg PO DAILY #90 tabs 12/21/24 02/14/25 02/14/25 Rx amlodipine 2.5 mg tablet 2.5 mg PO DAILY #90 tabs 12/30/24 02/16/25 02/16/25 Rx famciclovir 250 mg tablet 250 mg PO Q8H 7 days #21 tabs 01/26/25 02/14/25 02/14/25 Rx mupirocin 2 % topical ointment 1 applic topical BID 2 weeks #22 02/01/25 02/14/25 02/14/25 Rx grams acarbose 100 mg tablet 100 mg PO TID 02/14/25 02/14/25 02/14/25 History blood-glucose sensor (Dexcom G7 #9 ea 02/14/25 Unknown Rx Sensor device) escitalopram oxalate 5 mg tablet 5 mg PO DAILY 02/14/25 02/14/25 Unknown History magnesium oxide 400 mg (241.3 mg 400 mg PO DAILY 02/14/25 02/14/25 02/14/25 History magnesium) tablet metoprolol succinate 25 mg 25 mg PO DAILY 02/14/25 02/16/25 02/16/25 History tablet,extended release 24 hr Allergies Allergy/AdvReac Type Severity Reaction Status Date / Time No Known Allergies Allergy Verified 02/14/25 08:21 [facility] Anesthesia Medical History Breast cancer screening by mammogram Cellulitis of right foot Upper respiratory infection History of kidney stones History of nonmelanoma skin cancer Otitis media Adrenal nodule Skin lesion of hand Skin inflammation CAD (coronary artery disease) Anemia Postoperative follow-up Bacterial UTI Forearm fracture Aortic stenosis 23 mm Kim Inspiris 23 mm Bioprosthetic AVR with posterior annular enlargement with Dacron patch (Oliver's) 2020 at [facility] Injury of right forearm Hypomagnesemia Mixed hyperlipidemia Vitamin D deficiency Hypertension Diabetes Surgical History History of pancreatectomy (08/19/23) Left pancreatectomy and splenectomy with abdominal lymph (splenic) node dissection History of cystoscopy History of urethral stent History of aortic valve replacement (01/16/21) Bioprosthetic aortic valve replacement and single-vessel coronary artery bypass S/P shoulder surgery 1999 shoulder joint repair right Surgery done at [facility] History of ankle surgery 1999 fell and broke right ankle Plate and screws at [facility] Family History Father Emphysema of lung Mother Pancreatic cancer Social History Smoking and tobacco/nicotine status: never used tobacco/nicotine Second hand smoke exposure: Yes Alcohol intake: never Substance/Drug Use: never Caregiver/support person: Yes Lives independently: Yes Household members: spouse Housing: Manufactured/Mobile home Marital status: Number of children: 2 Highest education level completed: 6th Grade service: No Current occupational status: retired Current occupation: Retired Data Anesthesia Cardiac Studies: Echocardiogram 07/07/23 Echocardiogram Ultrasound 08/21/20
[2025-02-16 12:21] LABS: INR 0.94 (0.8-1.2); Prothrombin Time 13.20 SECONDS (12.1-14.9)
[2025-02-16 14:19] VITALS: BP 128/64; PULSE 62; RESP 10; TEMP 36.6; O2SAT 97
[2025-02-16 14:33] VITALS: BP 127/65; PULSE 60; RESP 12; O2SAT 99
[2025-02-16 14:58] VITALS: BP 122/60; PULSE 60; RESP 14; O2SAT 98
[2025-02-16 15:09] VITALS: BP 127/69; PULSE 60; RESP 16; TEMP 36.4; O2SAT 98
--- NOTE | 2025-02-16 15:36 | SUR.PHASEII ---
Dressing clean, dry and intact. Instructed pt and family to hold ASA 81 mg, may resume 02/17/[address] [place].
--- NOTE | 2025-02-16 15:40 | ANE.PACU2 ---
Inpatient post-anesthesia follow up: Airway intact: Yes Vital signs: Temperature 97.6 F Pulse Rate 60 Respiratory Rate 16 Blood Pressure 127/69 Pulse Oximetry 98 Oxygen Delivery Me thod Room Air Oxygen Flow Rate Fraction of Inspir ed Oxygen Hydration adequate: Yes Nausea and vomiting: No Pain level: 1 Mental status: Baseline
== END 2025-02-16 15:40 | disposition home or self-care (01) ==
PROVIDERS: Anesthesiology; Radiology Neuroradiology; PCP Family Medicine; Visit Provider Nurse Practitioner Family
DX: C78.7 Secondary malignant neoplasm of liver and intrahepatic bile duct (principal); C25.9 Malignant neoplasm of pancreas, unspecified; I25.10 Atherosclerotic heart disease of native coronary artery without angina pectoris; I10 Essential (primary) hypertension; E78.2 Mixed hyperlipidemia; E11.9 Type 2 diabetes mellitus without complications; Z95.2 Presence of prosthetic heart valve; Z79.899 Other long term (current) drug therapy; Z79.82 Long term (current) use of aspirin; Z79.4 Long term (current) use of insulin; Z85.828 Personal history of other malignant neoplasm of skin; Z80.0 Family history of malignant neoplasm of digestive organs
CPT/HCPCS: 36416; 36591; 47000; 76942; 82962; 85610; 88307; J2250; J3490; J7030

== ENCOUNTER → 2025-03-04 08:50 | Outpatient (BNVA) | payer MEDICARE, MEDICAID, SELFPAY | PROVIDERS: PCP Family Medicine; Visit Provider Internal Medicine | DX: E11.69 Type 2 diabetes mellitus with other specified complication (principal); Z79.4 Long term (current) use of insulin; E78.2 Mixed hyperlipidemia; E11.649 Type 2 diabetes mellitus with hypoglycemia without coma; D35.00 Benign neoplasm of unspecified adrenal gland | CPT/HCPCS: 99214 ==

== ENCOUNTER 2025-03-09 08:00 | Oncology outpatient (recurring) (ONCR) | payer OTHER, MEDICAID, SELFPAY ==
[2025-02-08 09:06] LABS: Glucose Urine UA Negative (Normal); Nitrate Urine Negative (Negative); Specific Gravity, Urine 1.020 (1.005-1.030)
[2025-02-08 09:06] LABS: Hematocrit 30.9 % (36-47); Hemoglobin 9.80 g/dL (11.27-16.99); Mean Corpuscular HGB Conc 31.7 g/dL (30-55); Mean Corpuscular Hemoglobin 31.3 pg (27-33); Mean Corpuscular Volume 98.7 fl (85-98); Nucleated Red Blood Cells % 0.8 %; Platelet Count 341 10^3/cmm (157-399); Red Blood Count 3.13 10^6/uL (3.85-5.65); White Blood Count 4.75 10^3/uL (3.29-11.43)
[2025-02-08 09:12] LABS: Add Urine Microscopic? YES
[2025-02-08 09:22] LABS: Alanine Aminotransferase 18 U/L (0-33); Albumin Level 3.5 g/dL (3.5-5.2); Alkaline Phosphatase 131 U/L (35-105); Anion Gap 15.5 (5-19); Aspartate Amino Transferase 23 U/L (0-32); Blood Urea Nitrogen 10 mg/dL (8-23); Calcium 9.3 mg/dL (8.5-10.5); Carbon Dioxide 26 mmol/L (22-29); Chloride 99 mmol/L (98-107); Creatinine Clr Calc Pharmacy 56.9500; Globulin 2.7 g/dL (1.3-4.6); Glucose 179 mg/dL (65-115); Osmolality Calculated 286 mOsm/kg (285-295); Potassium 4.5 mmol/L (3.5-5.1); Sodium 136 mmol/L (136-145); Total Protein 6.2 g/dL (6.6-8.7)
[2025-02-08] MEDS: dexamethasone 4 mg/mL INJ 5 mL 12 MG IVP (11:03)
[2025-02-08] MEDS: atropine 1 mg/mL SDV 1 mL 0.4 MG IV (11:09)
[2025-02-08] MEDS: leucovorin 700 MG in dextrose 5% 250 ML 166.67 MG IV (11:54)
[2025-02-08] MEDS: irinotecan 300 MG, irinotecan 10 MG in dextrose 5% 250 ML 177 MG IV (11:54)
[2025-02-08 13:44] VITALS: BP 150/60; PULSE 59; RESP 17; TEMP 36.3; O2SAT 96
[2025-02-08] MEDS: fluorouraciL 4,150 MG, elastomeric pump 1 PUMP in sodium chloride 0.9% (100 ml) 9 ML IV (13:47)
[2025-02-22 07:54] LABS: Hematocrit 29.6 % (36-47); Hemoglobin 9.60 g/dL (11.27-16.99); Mean Corpuscular HGB Conc 32.4 g/dL (30-55); Mean Corpuscular Hemoglobin 32.2 pg (27-33); Mean Corpuscular Volume 99.3 fl (85-98); Nucleated Red Blood Cells % 1.0 %; Platelet Count 308 10^3/cmm (157-399); Red Blood Count 2.98 10^6/uL (3.85-5.65); White Blood Count 4.21 10^3/uL (3.29-11.43)
[2025-02-22 08:20] LABS: Glucose Urine UA Trace (Normal); Nitrate Urine Negative (Negative); Specific Gravity, Urine 1.027 (1.005-1.030)
[2025-02-22 08:21] LABS: Carcinoembryonic Antigen 110.9 ng/mL (0.0-4.7)
[2025-02-22 08:22] LABS: Add Urine Microscopic? YES
[2025-02-22 08:33] LABS: Alanine Aminotransferase 19 U/L (0-33); Albumin Level 3.4 g/dL (3.5-5.2); Alkaline Phosphatase 127 U/L (35-105); Anion Gap 13.8 (5-19); Aspartate Amino Transferase 29 U/L (0-32); Blood Urea Nitrogen 10 mg/dL (8-23); Calcium 9.1 mg/dL (8.5-10.5); Carbon Dioxide 25 mmol/L (22-29); Chloride 103 mmol/L (98-107); Creatinine Clr Calc Pharmacy 57.4883; Globulin 2.6 g/dL (1.3-4.6); Glucose 206 mg/dL (65-115); Osmolality Calculated 289 mOsm/kg (285-295); Potassium 4.8 mmol/L (3.5-5.1); Sodium 137 mmol/L (136-145); Total Protein 6.0 g/dL (6.6-8.7)
[2025-02-22] MEDS: dexamethasone 4 mg/mL INJ 5 mL 12 MG IVP (09:25)
[2025-02-22] MEDS: atropine 1 mg/mL SDV 1 mL 0.4 MG IV (09:25)
[2025-02-22] MEDS: leucovorin 700 MG in dextrose 5% 250 ML 166.67 MG IV (09:51)
[2025-02-22] MEDS: irinotecan 300 MG, irinotecan 10 MG in dextrose 5% 250 ML 177 MG IV (09:51)
[2025-02-22 10:33] LABS: Cancer Antigen 19 9 22304 U/mL (0-35)
[2025-02-22] MEDS: fluorouraciL 4,200 MG, elastomeric pump 1 PUMP in sodium chloride 0.9% (100 ml) 8 ML IV (11:35)
[2025-02-22 11:45] VITALS: BP 151/76; PULSE 58; RESP 17; TEMP 36.2; O2SAT 99
[2025-03-09 08:07] LABS: Hematocrit 31.2 % (36-47); Hemoglobin 10.10 g/dL (11.27-16.99); Mean Corpuscular HGB Conc 32.4 g/dL (30-55); Mean Corpuscular Hemoglobin 31.9 pg (27-33); Mean Corpuscular Volume 98.4 fl (85-98); Nucleated Red Blood Cells % 1.6 %; Platelet Count 289 10^3/cmm (157-399); Red Blood Count 3.17 10^6/uL (3.85-5.65); White Blood Count 3.14 10^3/uL (3.29-11.43)
[2025-03-09 08:23] LABS: Alanine Aminotransferase 14 U/L (0-33); Albumin Level 3.5 g/dL (3.5-5.2); Alkaline Phosphatase 111 U/L (35-105); Anion Gap 14.6 (5-19); Aspartate Amino Transferase 20 U/L (0-32); Blood Urea Nitrogen 10 mg/dL (8-23); Calcium 9.0 mg/dL (8.5-10.5); Carbon Dioxide 24 mmol/L (22-29); Chloride 103 mmol/L (98-107); Creatinine Clr Calc Pharmacy 57.4883; Globulin 2.8 g/dL (1.3-4.6); Glucose 209 mg/dL (65-115); Osmolality Calculated 289 mOsm/kg (285-295); Potassium 4.6 mmol/L (3.5-5.1); Sodium 137 mmol/L (136-145); Total Protein 6.3 g/dL (6.6-8.7)
[2025-03-09 08:25] LABS: Glucose Urine UA Negative (Normal); Nitrate Urine Negative (Negative)
[2025-03-09 08:27] LABS: Add Urine Microscopic? YES
[2025-03-09 08:47] LABS: Specific Gravity, Urine 1.035 (1.005-1.030)
[2025-03-09 08:49] LABS: UA Slide Review UA Slide Review Perf
== END 2025-03-10 23:59 | disposition home or self-care (01) ==
PROVIDERS: Internal Medicine Medical Oncology; Nurse Practitioner; Nurse Practitioner Family; PCP Family Medicine; Visit Provider Internal Medicine
DX: Z53.9 Procedure and treatment not carried out, unspecified reason (principal); C25.2 Malignant neoplasm of tail of pancreas; C78.7 Secondary malignant neoplasm of liver and intrahepatic bile duct; Z79.899 Other long term (current) drug therapy; D70.1 Agranulocytosis secondary to cancer chemotherapy; T45.1X5A Adverse effect of antineoplastic and immunosuppressive drugs, initial encounter
CPT/HCPCS: 80053; 81001; 82378; 83615; 85025; 86301; 96368; 96375; 96413; 96415; 96416; 96523; 99213; 99214; J0461; J0640; J1100; J2469; J7060; J9190; J9206

== ENCOUNTER → 2025-03-15 13:21 | Outpatient (BNVA) | payer OTHER, MEDICAID, SELFPAY | PROVIDERS: PCP Family Medicine; Visit Provider Podiatrist Foot & Ankle Surgery | DX: E11.42 Type 2 diabetes mellitus with diabetic polyneuropathy (principal); L60.3 Nail dystrophy; L84 Corns and callosities; E11.8 Type 2 diabetes mellitus with unspecified complications; M20.41 Other hammer toe(s) (acquired), right foot; M20.42 Other hammer toe(s) (acquired), left foot; Z79.4 Long term (current) use of insulin | CPT/HCPCS: 11055; 11721 ==

== ENCOUNTER 2025-04-06 08:00 | Oncology outpatient (recurring) (ONCR) | payer OTHER, MEDICAID, SELFPAY ==
[2025-03-16 11:38] LABS: Hematocrit 30.0 % (36-47); Hemoglobin 9.70 g/dL (11.27-16.99); Mean Corpuscular HGB Conc 32.3 g/dL (30-55); Mean Corpuscular Hemoglobin 31.9 pg (27-33); Mean Corpuscular Volume 98.7 fl (85-98); Nucleated Red Blood Cells % 1.4 %; Platelet Count 385 10^3/cmm (157-399); Red Blood Count 3.04 10^6/uL (3.85-5.65); White Blood Count 7.95 10^3/uL (3.29-11.43)
[2025-03-16 12:15] LABS: Alanine Aminotransferase 17 U/L (0-33); Albumin Level 3.6 g/dL (3.5-5.2); Alkaline Phosphatase 123 U/L (35-105); Anion Gap 14.7 (5-19); Aspartate Amino Transferase 27 U/L (0-32); Blood Urea Nitrogen 13 mg/dL (8-23); Calcium 9.3 mg/dL (8.5-10.5); Carbon Dioxide 25 mmol/L (22-29); Chloride 103 mmol/L (98-107); Creatinine Clr Calc Pharmacy 57.8470; Ferritin 239 ng/mL (15-150); Globulin 2.7 g/dL (1.3-4.6); Glucose 157 mg/dL (65-115); Iron 39 ug/dL (37-145); Osmolality Calculated 289 mOsm/kg (285-295); Potassium 4.7 mmol/L (3.5-5.1); Sodium 138 mmol/L (136-145); Total Iron Binding Capacity 256 mcg/dl; Total Protein 6.3 g/dL (6.6-8.7); Unsaturated Iron Binding 217 ug/dL (112-347); Vitamin B12 858 pg/mL (232-1245)
[2025-03-16] MEDS: dexamethasone 4 mg/mL INJ 5 mL 12 MG IVP (13:12)
[2025-03-16] MEDS: atropine 1 mg/mL SDV 1 mL 0.4 MG IV (13:40)
[2025-03-16] MEDS: irinotecan 300 MG, irinotecan 20 MG in dextrose 5% 250 ML 177.33 MG IV (14:08)
[2025-03-16] MEDS: leucovorin 700 MG in dextrose 5% 250 ML 166.67 MG IV (14:08)
[2025-03-16 14:48] LABS: Cancer Antigen 19 9 13365 U/mL (0-35)
[2025-03-16] MEDS: fluorouraciL 4,200 MG, elastomeric pump 1 PUMP in sodium chloride 0.9% (100 ml) 8 ML IV (15:56)
[2025-03-16 16:09] VITALS: BP 154/82; PULSE 63; RESP 17; TEMP 35.9; O2SAT 98
[2025-03-30 11:02] LABS: Hematocrit 29.5 % (36-47); Hemoglobin 9.40 g/dL (11.27-16.99); Mean Corpuscular HGB Conc 31.9 g/dL (30-55); Mean Corpuscular Hemoglobin 31.8 pg (27-33); Mean Corpuscular Volume 99.7 fl (85-98); Nucleated Red Blood Cells % 0.7 %; Platelet Count 354 10^3/cmm (157-399); Red Blood Count 2.96 10^6/uL (3.85-5.65); White Blood Count 5.75 10^3/uL (3.29-11.43)
[2025-03-30 11:30] LABS: Alanine Aminotransferase 12 U/L (0-33); Albumin Level 3.6 g/dL (3.5-5.2); Alkaline Phosphatase 108 U/L (35-105); Anion Gap 11.5 (5-19); Aspartate Amino Transferase 18 U/L (0-32); Blood Urea Nitrogen 9 mg/dL (8-23); Calcium 8.9 mg/dL (8.5-10.5); Carbon Dioxide 26 mmol/L (22-29); Chloride 104 mmol/L (98-107); Creatinine Clr Calc Pharmacy 58.0261; Globulin 2.7 g/dL (1.3-4.6); Glucose 163 mg/dL (65-115); Osmolality Calculated 286 mOsm/kg (285-295); Potassium 4.5 mmol/L (3.5-5.1); Sodium 137 mmol/L (136-145); Total Protein 6.3 g/dL (6.6-8.7)
[2025-03-30] MEDS: dexamethasone 4 mg/mL INJ 5 mL 12 MG IVP (12:58)
[2025-03-30] MEDS: atropine 1 mg/mL SDV 1 mL 0.4 MG IV (13:00)
[2025-03-30] MEDS: irinotecan 320 MG in dextrose 5% 250 ML 177.33 MG IV (13:27)
[2025-03-30] MEDS: leucovorin 700 MG in dextrose 5% 250 ML 166.67 MG IV (13:27)
[2025-03-30] MEDS: fluorouraciL 4,200 MG, elastomeric pump 1 PUMP in sodium chloride 0.9% (100 ml) 8 ML IV (15:14)
[2025-03-30 15:19] VITALS: BP 172/78; PULSE 58; TEMP 36.4; O2SAT 100
[2025-04-01 11:09] VITALS: BP 146/68; PULSE 51; RESP 17; TEMP 36.4; O2SAT 99
[2025-04-06 08:09] LABS: Hematocrit 29.7 % (36-47); Hemoglobin 9.60 g/dL (11.27-16.99); Mean Corpuscular HGB Conc 32.3 g/dL (30-55); Mean Corpuscular Hemoglobin 32.3 pg (27-33); Mean Corpuscular Volume 100.0 fl (85-98); Nucleated Red Blood Cells % 1.9 %; Platelet Count 303 10^3/cmm (157-399); Red Blood Count 2.97 10^6/uL (3.85-5.65); White Blood Count 3.77 10^3/uL (3.29-11.43)
[2025-04-06 08:33] LABS: Alanine Aminotransferase 15 U/L (0-33); Albumin Level 3.6 g/dL (3.5-5.2); Alkaline Phosphatase 120 U/L (35-105); Anion Gap 12.7 (5-19); Aspartate Amino Transferase 18 U/L (0-32); Blood Urea Nitrogen 10 mg/dL (8-23); Calcium 8.9 mg/dL (8.5-10.5); Carbon Dioxide 24 mmol/L (22-29); Chloride 102 mmol/L (98-107); Creatinine Clr Calc Pharmacy 57.4883; Globulin 2.9 g/dL (1.3-4.6); Glucose 207 mg/dL (65-115); Osmolality Calculated 283 mOsm/kg (285-295); Potassium 4.7 mmol/L (3.5-5.1); Sodium 134 mmol/L (136-145); Total Protein 6.5 g/dL (6.6-8.7)
[2025-04-06] MEDS: diphenhydrAMINE 50 mg/mL SDV 1mL 25 MG IVP (09:59)
[2025-04-06] MEDS: SODIUM CHLORIDE 0.9% IV (11:41)
[2025-04-06] MEDS: IRON DEXTRAN IV (11:41)
[2025-04-06 15:46] VITALS: BP 131/74; PULSE 51; RESP 16; TEMP 36.7; O2SAT 98
== END 2025-04-10 23:59 | disposition home or self-care (01) ==
PROVIDERS: Internal Medicine; Internal Medicine Medical Oncology; PCP Family Medicine; Visit Provider Nurse Practitioner
DX: C25.2 Malignant neoplasm of tail of pancreas; D50.9 Iron deficiency anemia, unspecified; C78.7 Secondary malignant neoplasm of liver and intrahepatic bile duct; Z79.899 Other long term (current) drug therapy; Z53.9 Procedure and treatment not carried out, unspecified reason
CPT/HCPCS: 80053; 82607; 82728; 82746; 83010; 83540; 83550; 85025; 85045; 86301; 96365; 96366; 96368; 96375; 96413; 96415; 96416; 96523; 99213; 99214; 99215; J0461; J0640; J1100; J1200; J1750; J2469; J7030; J7040; J7060; J9190; J9206; J9999

== ENCOUNTER → 2025-05-03 07:45 | Outpatient (BNVA) | payer OTHER, MEDICAID, SELFPAY | PROVIDERS: PCP Family Medicine; Visit Provider Podiatrist Foot & Ankle Surgery | DX: E11.621 Type 2 diabetes mellitus with foot ulcer (principal); L97.512 Non-pressure chronic ulcer of other part of right foot with fat layer exposed; M20.41 Other hammer toe(s) (acquired), right foot; M20.42 Other hammer toe(s) (acquired), left foot; E11.42 Type 2 diabetes mellitus with diabetic polyneuropathy; L60.3 Nail dystrophy; L84 Corns and callosities; E11.8 Type 2 diabetes mellitus with unspecified complications | CPT/HCPCS: 11055; 11721 ==

== ENCOUNTER 2025-05-06 11:00 | Oncology outpatient (recurring) (ONCR) | payer OTHER, MEDICAID, SELFPAY ==
[2025-04-13 09:17] LABS: Hematocrit 31.0 % (36-47); Hemoglobin 9.80 g/dL (11.27-16.99); Mean Corpuscular HGB Conc 31.6 g/dL (30-55); Mean Corpuscular Hemoglobin 32.0 pg (27-33); Mean Corpuscular Volume 101.3 fl (85-98); Nucleated Red Blood Cells % 1.5 %; Platelet Count 315 10^3/cmm (157-399); Red Blood Count 3.06 10^6/uL (3.85-5.65); White Blood Count 4.76 10^3/uL (3.29-11.43)
[2025-04-13 09:38] LABS: Alanine Aminotransferase 15 U/L (0-33); Albumin Level 3.7 g/dL (3.5-5.2); Alkaline Phosphatase 106 U/L (35-105); Anion Gap 12.6 (5-19); Aspartate Amino Transferase 22 U/L (0-32); Blood Urea Nitrogen 9 mg/dL (8-23); Calcium 9.2 mg/dL (8.5-10.5); Carbon Dioxide 27 mmol/L (22-29); Chloride 103 mmol/L (98-107); Creatinine Clr Calc Pharmacy 58.0261; Globulin 2.8 g/dL (1.3-4.6); Glucose 137 mg/dL (65-115); Magnesium 1.9 mg/dL (1.7-2.3); Osmolality Calculated 287 mOsm/kg (285-295); Potassium 4.6 mmol/L (3.5-5.1); Sodium 138 mmol/L (136-145); Total Protein 6.5 g/dL (6.6-8.7)
[2025-04-13] MEDS: dexamethasone 4 mg/mL INJ 5 mL 12 MG IVP (11:11)
[2025-04-13] MEDS: atropine 1 mg/mL SDV 1 mL 0.4 MG IV (11:48)
[2025-04-13] MEDS: irinotecan 320 MG in dextrose 5% 250 ML 177.33 MG IV (11:59)
[2025-04-13] MEDS: leucovorin 700 MG in dextrose 5% 250 ML 166.67 MG IV (11:59)
[2025-04-13] MEDS: fluorouraciL 4,200 MG, elastomeric pump 1 PUMP in sodium chloride 0.9% (100 ml) 8 ML IV (13:59)
[2025-04-13 14:10] VITALS: BP 159/74; PULSE 58; RESP 17; TEMP 35.8; O2SAT 98
[2025-04-27 09:11] LABS: Hematocrit 30.0 % (36-47); Hemoglobin 9.70 g/dL (11.27-16.99); Mean Corpuscular HGB Conc 32.3 g/dL (30-55); Mean Corpuscular Hemoglobin 33.2 pg (27-33); Mean Corpuscular Volume 102.7 fl (85-98); Nucleated Red Blood Cells % 0.9 %; Platelet Count 317 10^3/cmm (157-399); Red Blood Count 2.92 10^6/uL (3.85-5.65); White Blood Count 4.22 10^3/uL (3.29-11.43)
[2025-04-27 09:29] LABS: Glucose Urine UA Negative (Normal); Nitrate Urine Negative (Negative); Specific Gravity, Urine 1.021 (1.005-1.030)
[2025-04-27 09:31] LABS: Alanine Aminotransferase 17 U/L (0-33); Albumin Level 3.6 g/dL (3.5-5.2); Alkaline Phosphatase 109 U/L (35-105); Anion Gap 14.4 (5-19); Aspartate Amino Transferase 22 U/L (0-32); Blood Urea Nitrogen 7 mg/dL (8-23); Calcium 9.1 mg/dL (8.5-10.5); Carbon Dioxide 26 mmol/L (22-29); Chloride 104 mmol/L (98-107); Creatinine Clr Calc Pharmacy 58.5644; Globulin 2.7 g/dL (1.3-4.6); Glucose 179 mg/dL (65-115); Osmolality Calculated 292 mOsm/kg (285-295); Potassium 4.4 mmol/L (3.5-5.1); Sodium 140 mmol/L (136-145); Total Protein 6.3 g/dL (6.6-8.7)
[2025-04-27 09:34] LABS: Add Urine Microscopic? YES
[2025-05-04 11:44] LABS: Hematocrit 32.4 % (36-47); Hemoglobin 10.60 g/dL (11.27-16.99); Mean Corpuscular HGB Conc 32.7 g/dL (30-55); Mean Corpuscular Hemoglobin 33.0 pg (27-33); Mean Corpuscular Volume 100.9 fl (85-98); Nucleated Red Blood Cells % 0.5 %; Platelet Count 336 10^3/cmm (157-399); Red Blood Count 3.21 10^6/uL (3.85-5.65); White Blood Count 5.96 10^3/uL (3.29-11.43)
[2025-05-04 12:34] LABS: Alanine Aminotransferase 15 U/L (0-33); Albumin Level 3.8 g/dL (3.5-5.2); Alkaline Phosphatase 109 U/L (35-105); Anion Gap 13.4 (5-19); Aspartate Amino Transferase 21 U/L (0-32); Blood Urea Nitrogen 15 mg/dL (8-23); Calcium 9.5 mg/dL (8.5-10.5); Carbon Dioxide 25 mmol/L (22-29); Chloride 100 mmol/L (98-107); Creatinine Clr Calc Pharmacy 57.5138; Globulin 2.8 g/dL (1.3-4.6); Glucose 165 mg/dL (65-115); Magnesium 1.8 mg/dL (1.7-2.3); Osmolality Calculated 283 mOsm/kg (285-295); Potassium 4.4 mmol/L (3.5-5.1); Sodium 134 mmol/L (136-145); Total Protein 6.6 g/dL (6.6-8.7)
[2025-05-04 12:54] LABS: Cancer Antigen 19 9 8841 U/mL (0-35)
[2025-05-04] MEDS: dexamethasone 4 mg/mL INJ 5 mL 10 MG IVP (13:29)
[2025-05-04] MEDS: irinotecan 320 MG in dextrose 5% 250 ML 177.33 MG IV (14:06)
[2025-05-04] MEDS: leucovorin 700 MG in dextrose 5% 250 ML 166.67 MG IV (14:07)
[2025-05-04] MEDS: atropine 1 mg/mL SDV 1 mL 0.4 MG IV (14:11)
[2025-05-04] MEDS: fluorouraciL 4,200 MG, elastomeric pump 1 PUMP in sodium chloride 0.9% (100 ml) 8 ML IV (15:58)
[2025-05-04 16:12] VITALS: BP 167/83; PULSE 60; RESP 17; TEMP 35.8; O2SAT 97
[2025-05-04 16:23] LABS: Carcinoembryonic Antigen 72.9 ng/mL (0.0-4.7)
== END 2025-05-10 23:59 | disposition home or self-care (01) ==
PROVIDERS: Internal Medicine; PCP Family Medicine; Visit Provider Nurse Practitioner
DX: Z45.1 Encounter for adjustment and management of infusion pump; Z95.828 Presence of other vascular implants and grafts; Z53.9 Procedure and treatment not carried out, unspecified reason
CPT/HCPCS: 80053; 81001; 82378; 83615; 83735; 85025; 86301; 87086; 96368; 96375; 96413; 96415; 96416; 96523; 99213; 99214; J0461; J0640; J1100; J2469; J7060; J9190; J9206

== ENCOUNTER 2025-06-03 10:41 | Oncology outpatient (recurring) (ONCR) | payer OTHER, MEDICAID, SELFPAY ==
[2025-05-18 08:43] LABS: Hematocrit 32.1 % (36-47); Hemoglobin 10.40 g/dL (11.27-16.99); Mean Corpuscular HGB Conc 32.4 g/dL (30-55); Mean Corpuscular Hemoglobin 33.2 pg (27-33); Mean Corpuscular Volume 102.6 fl (85-98); Nucleated Red Blood Cells % 0.6 %; Platelet Count 299 10^3/cmm (157-399); Red Blood Count 3.13 10^6/uL (3.85-5.65); White Blood Count 6.17 10^3/uL (3.29-11.43)
[2025-05-18 08:55] LABS: Alanine Aminotransferase 16 U/L (0-33); Albumin Level 4.0 g/dL (3.5-5.2); Alkaline Phosphatase 112 U/L (35-105); Anion Gap 14.7 (5-19); Aspartate Amino Transferase 24 U/L (0-32); Blood Urea Nitrogen 8 mg/dL (8-23); Calcium 9.1 mg/dL (8.5-10.5); Carbon Dioxide 25 mmol/L (22-29); Chloride 104 mmol/L (98-107); Creatinine Clr Calc Pharmacy 57.5138; Globulin 2.7 g/dL (1.3-4.6); Glucose 142 mg/dL (65-115); Osmolality Calculated 289 mOsm/kg (285-295); Potassium 4.7 mmol/L (3.5-5.1); Sodium 139 mmol/L (136-145); Total Protein 6.7 g/dL (6.6-8.7)
[2025-05-18 09:24] LABS: Glucose Urine UA Negative (Normal); Nitrate Urine Negative (Negative); Specific Gravity, Urine 1.017 (1.005-1.030)
[2025-05-18 09:52] LABS: Add Urine Microscopic? YES; UA Manual Slide Review YES; UA Slide Review UA Slide Review Perf
[2025-05-18] MEDS: dexamethasone 4 mg/mL INJ 5 mL 8 MG IVP (11:49)
[2025-05-18] MEDS: atropine 1 mg/mL SDV 1 mL 0.4 MG IV (12:27)
[2025-05-18] MEDS: leucovorin 720 MG in dextrose 5% 250 ML 214.67 MG IV (12:50)
[2025-05-18] MEDS: DEXTROSE 5% IV (12:50)
[2025-05-18] MEDS: IRINOTECAN IV (12:50)
[2025-05-18] MEDS: fluorouraciL 4,250 MG, elastomeric pump 1 PUMP in sodium chloride 0.9% (100 ml) 7 ML IV (14:41)
[2025-05-18 14:50] VITALS: BP 149/84; PULSE 57; RESP 16; TEMP 36.3; O2SAT 98
[2025-06-01 08:21] LABS: Hematocrit 31.6 % (36-47); Hemoglobin 10.40 g/dL (11.27-16.99); Mean Corpuscular HGB Conc 32.9 g/dL (30-55); Mean Corpuscular Hemoglobin 33.2 pg (27-33); Mean Corpuscular Volume 101.0 fl (85-98); Nucleated Red Blood Cells % 0.4 %; Platelet Count 339 10^3/cmm (157-399); Red Blood Count 3.13 10^6/uL (3.85-5.65); White Blood Count 4.54 10^3/uL (3.29-11.43)
[2025-06-01 08:24] LABS: Glucose Urine UA 3+ (Normal); Nitrate Urine Negative (Negative)
[2025-06-01 08:29] LABS: Add Urine Microscopic? YES
[2025-06-01 08:34] LABS: Alanine Aminotransferase 20 U/L (0-33); Albumin Level 3.7 g/dL (3.5-5.2); Alkaline Phosphatase 115 U/L (35-105); Anion Gap 14.1 (5-19); Aspartate Amino Transferase 24 U/L (0-32); Blood Urea Nitrogen 13 mg/dL (8-23); Calcium 9.2 mg/dL (8.5-10.5); Carbon Dioxide 24 mmol/L (22-29); Chloride 103 mmol/L (98-107); Creatinine Clr Calc Pharmacy 58.0990; Globulin 2.5 g/dL (1.3-4.6); Glucose 245 mg/dL (65-115); Osmolality Calculated 292 mOsm/kg (285-295); Potassium 4.1 mmol/L (3.5-5.1); Sodium 137 mmol/L (136-145); Total Protein 6.2 g/dL (6.6-8.7)
[2025-06-01 08:42] LABS: Specific Gravity, Urine 1.035 (1.005-1.030)
[2025-06-01 09:57] VITALS: BP 171/73; PULSE 56; RESP 16; TEMP 36.1; O2SAT 99
[2025-06-01] MEDS: dexamethasone 4 mg/mL INJ 5 mL IVP (10:54)
[2025-06-01] MEDS: atropine 1 mg/mL SDV 1 mL 0.4 MG IV (11:25)
[2025-06-01] MEDS: DEXTROSE 5% IV (11:37)
[2025-06-01] MEDS: IRINOTECAN IV (11:37)
[2025-06-01] MEDS: leucovorin 720 MG in dextrose 5% 250 ML 214.67 MG IV (11:40)
[2025-06-01] MEDS: fluorouraciL 4,250 MG, elastomeric pump 1 PUMP in sodium chloride 0.9% (100 ml) 7 ML IV (13:55)
[2025-06-01 14:11] VITALS: BP 151/78; PULSE 57; RESP 16; TEMP 36.3; O2SAT 98
== END 2025-06-10 23:59 | disposition home or self-care (01) ==
PROVIDERS: PCP Family Medicine; Visit Provider Nurse Practitioner
DX: Z45.1 Encounter for adjustment and management of infusion pump (principal); Z95.828 Presence of other vascular implants and grafts
CPT/HCPCS: 80053; 81001; 85025; 96368; 96375; 96413; 96415; 96416; 96523; 99213; 99214; J0461; J0640; J1100; J2469; J7060; J9190; J9206

== ENCOUNTER 2025-07-01 10:15 | Oncology outpatient (recurring) (ONCR) | payer MEDICARE, MEDICAID, SELFPAY ==
[2025-06-15 08:46] LABS: Glucose Urine UA Negative (Normal); Nitrate Urine Negative (Negative); Specific Gravity, Urine 1.012 (1.005-1.030)
[2025-06-15 08:47] LABS: Hematocrit 31.4 % (36-47); Hemoglobin 10.30 g/dL (11.27-16.99); Mean Corpuscular HGB Conc 32.8 g/dL (30-55); Mean Corpuscular Hemoglobin 33.1 pg (27-33); Mean Corpuscular Volume 101.0 fl (85-98); Nucleated Red Blood Cells % 0 %; Platelet Count 301 10^3/cmm (157-399); Red Blood Count 3.11 10^6/uL (3.85-5.65); White Blood Count 5.71 10^3/uL (3.29-11.43)
[2025-06-15 08:49] LABS: Add Urine Microscopic? YES
[2025-06-15 09:09] LABS: Alanine Aminotransferase 19 U/L (0-33); Albumin Level 3.7 g/dL (3.5-5.2); Alkaline Phosphatase 102 U/L (35-105); Anion Gap 12.4 (5-19); Aspartate Amino Transferase 25 U/L (0-32); Blood Urea Nitrogen 10 mg/dL (8-23); Calcium 9.0 mg/dL (8.5-10.5); Carbon Dioxide 26 mmol/L (22-29); Chloride 103 mmol/L (98-107); Creatinine Clr Calc Pharmacy 58.0436; Ferritin 684 ng/mL (15-150); Globulin 2.6 g/dL (1.3-4.6); Glucose 146 mg/dL (65-115); Iron 62 ug/dL (37-145); Magnesium 2.0 mg/dL (1.7-2.3); Osmolality Calculated 286 mOsm/kg (285-295); Potassium 4.4 mmol/L (3.5-5.1); Sodium 137 mmol/L (136-145); Total Iron Binding Capacity 225 mcg/dl; Total Protein 6.3 g/dL (6.6-8.7); Unsaturated Iron Binding 163 ug/dL (112-347)
[2025-06-15 09:18] LABS: Carcinoembryonic Antigen 63.8 ng/mL (0.0-4.7)
[2025-06-15 09:23] LABS: Vitamin B12 628 pg/mL (232-1245)
[2025-06-15] MEDS: dexamethasone 4 mg/mL INJ 5 mL IVP (10:50)
[2025-06-15] MEDS: atropine 1 mg/mL SDV 1 mL 0.4 MG IV (11:25)
[2025-06-15] MEDS: leucovorin 720 MG in dextrose 5% 250 ML 214.67 MG IV (11:34)
[2025-06-15] MEDS: DEXTROSE 5% IV (11:34)
[2025-06-15] MEDS: IRINOTECAN IV (11:34)
[2025-06-15] MEDS: fluorouraciL 4,250 MG, elastomeric pump 1 PUMP in sodium chloride 0.9% (100 ml) 7 ML IV (13:49)
[2025-06-15 14:03] VITALS: BP 137/61; PULSE 55; RESP 17; TEMP 36.6; O2SAT 98
[2025-06-17] MEDS: FLU VACC TS2025-26(6MOS UP)/PF 45 MCG/0.5 ML SYRINGE IM (10:23)
[2025-06-17 10:36] VITALS: BP 157/85; PULSE 53; RESP 17; TEMP 35.7; O2SAT 98
[2025-06-29 08:13] LABS: Hematocrit 31.5 % (36-47); Hemoglobin 10.50 g/dL (11.27-16.99); Mean Corpuscular HGB Conc 33.3 g/dL (30-55); Mean Corpuscular Hemoglobin 33.9 pg (27-33); Mean Corpuscular Volume 101.6 fl (85-98); Nucleated Red Blood Cells % 0.4 %; Platelet Count 321 10^3/cmm (157-399); Red Blood Count 3.10 10^6/uL (3.85-5.65); White Blood Count 5.58 10^3/uL (3.29-11.43)
[2025-06-29 08:15] LABS: Glucose Urine UA Negative (Normal); Nitrate Urine Negative (Negative); Specific Gravity, Urine 1.022 (1.005-1.030)
[2025-06-29 08:20] LABS: Add Urine Microscopic? YES
[2025-06-29 08:40] LABS: Alanine Aminotransferase 25 U/L (0-33); Albumin Level 3.9 g/dL (3.5-5.2); Alkaline Phosphatase 113 U/L (35-105); Anion Gap 14.0 (5-19); Aspartate Amino Transferase 30 U/L (0-32); Blood Urea Nitrogen 11 mg/dL (8-23); Calcium 9.5 mg/dL (8.5-10.5); Carbon Dioxide 28 mmol/L (22-29); Chloride 102 mmol/L (98-107); Creatinine Clr Calc Pharmacy 57.5138; Globulin 2.6 g/dL (1.3-4.6); Glucose 150 mg/dL (65-115); Osmolality Calculated 290 mOsm/kg (285-295); Potassium 5.0 mmol/L (3.5-5.1); Sodium 139 mmol/L (136-145); Total Protein 6.5 g/dL (6.6-8.7)
[2025-06-29] MEDS: atropine 1 mg/mL SDV 1 mL 0.4 MG IV (09:41)
[2025-06-29] MEDS: dexamethasone 4 mg/mL INJ 5 mL IVP (09:43)
[2025-06-29] MEDS: leucovorin 720 MG in dextrose 5% 250 ML 214.67 MG IV (10:03)
[2025-06-29] MEDS: IRINOTECAN IV (10:03)
[2025-06-29] MEDS: DEXTROSE 5% IV (10:03)
[2025-06-29] MEDS: fluorouraciL 4,300 MG, elastomeric pump 1 PUMP in sodium chloride 0.9% (100 ml) 6 ML IV (11:42)
[2025-06-29 11:49] VITALS: BP 165/76; PULSE 56; RESP 18; TEMP 36.6; O2SAT 98
== END 2025-07-10 23:59 | disposition home or self-care (01) ==
PROVIDERS: Internal Medicine; Nurse Practitioner Family; PCP Family Medicine; Visit Provider Nurse Practitioner
DX: Z45.1 Encounter for adjustment and management of infusion pump; Z95.828 Presence of other vascular implants and grafts; Z53.9 Procedure and treatment not carried out, unspecified reason
CPT/HCPCS: 80053; 81001; 82378; 82607; 82728; 82746; 83010; 83540; 83550; 83615; 83735; 85025; 85045; 90471; 90656; 96368; 96375; 96413; 96415; 96416; 96417; 96523; 99214; J0461; J0640; J1100; J2469; J7060; J9190; J9206

== ENCOUNTER → 2025-08-02 10:58 | Outpatient (BNVA) | payer MEDICARE, MEDICAID, SELFPAY | PROVIDERS: PCP Family Medicine; Visit Provider Podiatrist Foot & Ankle Surgery | DX: E11.42 Type 2 diabetes mellitus with diabetic polyneuropathy (principal); L60.3 Nail dystrophy; L84 Corns and callosities; D23.39 Other benign neoplasm of skin of other parts of face; D23.112 Other benign neoplasm of skin of right lower eyelid, including canthus; C25.9 Malignant neoplasm of pancreas, unspecified; L57.8 Other skin changes due to chronic exposure to nonionizing radiation; L81.4 Other melanin hyperpigmentation; L82.1 Other seborrheic keratosis; D22.5 Melanocytic nevi of trunk; L90.5 Scar conditions and fibrosis of skin; Z85.828 Personal history of other malignant neoplasm of skin; M20.41 Other hammer toe(s) (acquired), right foot; M20.42 Other hammer toe(s) (acquired), left foot | CPT/HCPCS: 11055; 11721; 99213 ==

== ENCOUNTER 2025-08-10 07:30 | Oncology outpatient (recurring) (ONCR) | payer MEDICARE, MEDICAID, SELFPAY ==
[2025-07-13 08:42] LABS: Glucose Urine UA Negative (Normal); Nitrate Urine Negative (Negative); Specific Gravity, Urine 1.023 (1.005-1.030)
[2025-07-13 08:45] LABS: Hematocrit 33.0 % (36-47); Hemoglobin 10.80 g/dL (11.27-16.99); Mean Corpuscular HGB Conc 32.7 g/dL (30-55); Mean Corpuscular Hemoglobin 33.3 pg (27-33); Mean Corpuscular Volume 101.9 fl (85-98); Nucleated Red Blood Cells % 0.5 %; Platelet Count 360 10^3/cmm (157-399); Red Blood Count 3.24 10^6/uL (3.85-5.65); White Blood Count 5.99 10^3/uL (3.29-11.43)
[2025-07-13 08:57] LABS: Add Urine Microscopic? YES; Universal Test for UA Present (0)
[2025-07-13 09:10] LABS: Alanine Aminotransferase 18 U/L (0-33); Albumin Level 3.9 g/dL (3.5-5.2); Alkaline Phosphatase 112 U/L (35-105); Anion Gap 13.3 (5-19); Aspartate Amino Transferase 24 U/L (0-32); Blood Urea Nitrogen 10 mg/dL (8-23); Calcium 9.3 mg/dL (8.5-10.5); Carbon Dioxide 26 mmol/L (22-29); Chloride 101 mmol/L (98-107); Globulin 2.8 g/dL (1.3-4.6); Glucose 133 mg/dL (65-115); Osmolality Calculated 283 mOsm/kg (285-295); Potassium 4.3 mmol/L (3.5-5.1); Sodium 136 mmol/L (136-145); Total Protein 6.7 g/dL (6.6-8.7)
[2025-07-13 09:12] LABS: UA Slide Review UA Slide Review Perf
[2025-07-13 10:33] LABS: Estmated Average Glucose 217; Hemoglobin A1C 9.2 % (4.0-6.0)
[2025-07-13 10:36] VITALS: BP 162/85; PULSE 48; RESP 16; TEMP 36.4; O2SAT 98
[2025-07-13] MEDS: dexamethasone 4 mg/mL INJ 5 mL IVP (10:52)
[2025-07-13] MEDS: atropine 1 mg/mL SDV 1 mL 0.4 MG IV (11:32)
[2025-07-13] MEDS: leucovorin 720 MG in dextrose 5% 250 ML 166.67 MG IV (11:42)
[2025-07-13] MEDS: IRINOTECAN IV (11:42)
[2025-07-13] MEDS: DEXTROSE 5% IV (11:42)
[2025-07-13] MEDS: fluorouraciL 4,250 MG, elastomeric pump 1 PUMP in sodium chloride 0.9% (100 ml) 7 ML IV (13:33)
[2025-07-13 14:00] VITALS: BP 167/72; RESP 54; TEMP 35.9; O2SAT 98
[2025-07-27 08:09] LABS: Hematocrit 29.7 % (36-47); Hemoglobin 9.60 g/dL (11.27-16.99); Mean Corpuscular HGB Conc 32.3 g/dL (30-55); Mean Corpuscular Hemoglobin 33.4 pg (27-33); Mean Corpuscular Volume 103.5 fl (85-98); Nucleated Red Blood Cells % 0.5 %; Platelet Count 313 10^3/cmm (157-399); Red Blood Count 2.87 10^6/uL (3.85-5.65); White Blood Count 6.28 10^3/uL (3.29-11.43)
[2025-07-27 08:16] LABS: Glucose Urine UA Negative (Normal); Nitrate Urine Negative (Negative); Specific Gravity, Urine 1.016 (1.005-1.030)
[2025-07-27 08:21] LABS: Add Urine Microscopic? YES
[2025-07-27 08:30] LABS: Alanine Aminotransferase 16 U/L (0-33); Albumin Level 3.6 g/dL (3.5-5.2); Alkaline Phosphatase 107 U/L (35-105); Anion Gap 13.4 (5-19); Aspartate Amino Transferase 21 U/L (0-32); Blood Urea Nitrogen 13 mg/dL (8-23); Calcium 9.4 mg/dL (8.5-10.5); Carbon Dioxide 26 mmol/L (22-29); Chloride 102 mmol/L (98-107); Creatinine Clr Calc Pharmacy 58.0990; Globulin 2.3 g/dL (1.3-4.6); Glucose 170 mg/dL (65-115); Osmolality Calculated 288 mOsm/kg (285-295); Potassium 4.4 mmol/L (3.5-5.1); Sodium 137 mmol/L (136-145); Total Protein 5.9 g/dL (6.6-8.7)
[2025-07-27] MEDS: dexamethasone 4 mg/mL INJ 5 mL IVP (09:09)
[2025-07-27 10:02] LABS: Cancer Antigen 19 9 6298 U/mL (0-35)
[2025-07-27] MEDS: atropine 1 mg/mL SDV 1 mL 0.4 MG IV (10:02)
[2025-07-27 11:50] VITALS: BP 124/78; PULSE 84; RESP 17; TEMP 36.6; O2SAT 97
[2025-07-27 11:52] VITALS: BP 146/77; PULSE 54; RESP 17; TEMP 36.6; O2SAT 97
[2025-08-10 07:51] LABS: Hematocrit 30.7 % (36-47); Hemoglobin 9.90 g/dL (11.27-16.99); Mean Corpuscular HGB Conc 32.2 g/dL (30-55); Mean Corpuscular Hemoglobin 33.7 pg (27-33); Mean Corpuscular Volume 104.4 fl (85-98); Nucleated Red Blood Cells % 0 %; Platelet Count 317 10^3/cmm (157-399); Red Blood Count 2.94 10^6/uL (3.85-5.65); White Blood Count 7.47 10^3/uL (3.29-11.43)
[2025-08-10 08:07] LABS: Glucose Urine UA 2+ (Normal); Nitrate Urine Negative (Negative); Specific Gravity, Urine 1.026 (1.005-1.030)
[2025-08-10 08:11] LABS: Add Urine Microscopic? YES
[2025-08-10 08:17] LABS: Alanine Aminotransferase 22 U/L (0-33); Albumin Level 3.7 g/dL (3.5-5.2); Alkaline Phosphatase 125 U/L (35-105); Anion Gap 13.7 (5-19); Aspartate Amino Transferase 24 U/L (0-32); Blood Urea Nitrogen 10 mg/dL (8-23); Calcium 9.3 mg/dL (8.5-10.5); Carbon Dioxide 25 mmol/L (22-29); Chloride 103 mmol/L (98-107); Globulin 2.5 g/dL (1.3-4.6); Glucose 239 mg/dL (65-115); Osmolality Calculated 291 mOsm/kg (285-295); Potassium 4.7 mmol/L (3.5-5.1); Sodium 137 mmol/L (136-145); Total Protein 6.2 g/dL (6.6-8.7)
[2025-08-10] MEDS: dexamethasone 4 mg/mL INJ 5 mL IVP (09:35)
[2025-08-10] MEDS: atropine 1 mg/mL SDV 1 mL 0.4 MG IV (09:40)
[2025-08-10 10:07] LABS: Magnesium 1.8 mg/dL (1.7-2.3)
[2025-08-10] MEDS: IRINOTECAN IV (10:15)
[2025-08-10] MEDS: DEXTROSE 5% IV (10:15)
[2025-08-10] MEDS: leucovorin 720 MG in dextrose 5% 250 ML 166.67 MG IV (10:18)
[2025-08-10] MEDS: fluorouraciL 4,250 MG, elastomeric pump 1 PUMP in sodium chloride 0.9% (100 ml) 7 ML IV (12:09)
[2025-08-10 12:15] VITALS: BP 132/71; PULSE 71; RESP 18; TEMP 36.1
== END 2025-08-10 23:59 | disposition home or self-care (01) ==
PROVIDERS: Internal Medicine; Internal Medicine Medical Oncology; Nurse Practitioner; PCP Family Medicine; Visit Provider Nurse Practitioner Family
DX: Z51.11 Encounter for antineoplastic chemotherapy; C25.2 Malignant neoplasm of tail of pancreas; C78.7 Secondary malignant neoplasm of liver and intrahepatic bile duct; E83.42 Hypomagnesemia; D64.9 Anemia, unspecified; D70.1 Agranulocytosis secondary to cancer chemotherapy; T45.1X5A Adverse effect of antineoplastic and immunosuppressive drugs, initial encounter; Z79.899 Other long term (current) drug therapy; Z79.631 Long term (current) use of antimetabolite agent; Z79.52 Long term (current) use of systemic steroids; Z53.9 Procedure and treatment not carried out, unspecified reason
CPT/HCPCS: 80053; 81001; 83036; 83615; 83735; 85025; 86301; 87086; 96368; 96375; 96413; 96415; 96416; 96523; 99213; 99214; 99215; J0461; J0640; J1100; J2469; J7060; J9190; J9206